=== PATIENT | male | born 1945 | race Two or more races ===

== ENCOUNTER → 2016-10-27 | Day surgery (SDC) | payer MEDICARE, OTHER ==
--- NOTE | 2016-10-26 11:47 | Pre-op HX & Phy Repo 2 SIG ---
DATE OF ADMISSION: 10/27/2016 HISTORY OF PRESENT ILLNESS: The patient is a very pleasant 71-year-old male with history of renal failure, dialysis dependent, history of hypertension, hyperlipidemia, and diabetes, who presents to my office for preoperative evaluation for cataract surgery. He denies any chest pain or shortness of breath. No headaches. No abdominal pain. No fevers or chills. PAST MEDICAL HISTORY: Includes a history of renal failure on dialysis, history of diabetes, history of hypertension, history hyperlipidemia, history of neuropathy, vitamin D deficiency and history of peripheral vascular disease. MEDICATIONS: Please see his reconciled medication list. ALLERGIES: None known. SOCIAL HISTORY: The patient does not smoke, does not drink any alcohol, or does not use any drugs. REVIEW OF SYSTEMS: Twelve point review of systems reviewed negative except for above. PHYSICAL EXAMINATION: GENERAL: He is well developed, well nourished, currently in no apparent distress. VITAL SIGNS: Revealed blood pressure 120/80, pulse 80, afebrile, and respirations is 18. HEENT: Head is normocephalic and atraumatic. Pupils are equal and reactive to light. Extraocular muscles are intact. He does have cataracts LUNGS: Lungs are clear. HEART: Regular rate and rhythm without murmurs, rubs, gallops. ABDOMEN: Soft. Positive bowel sounds. EXTREMITIES: No clubbing, cyanosis, or edema. He does have a fistula for dialysis. There is good thrill. ASSESSMENT AND PLAN: The patient is a pleasant 71-year-old male, who presents to my office for preoperative evaluation for cataract surgery. Preoperative laboratories including CBC, CMP, EKG has been ordered. The patient was told not to take any aspirin products for five days prior to this procedure. Pending his results. The patient is here for his proposed surgery. Thank you for allowing me to participate in the care of this patient. Casey Bryan M.D. DR: Manjit JOB#: [id number] CC: Noe Emerson M.D.; Fax#: [phone]
--- NOTE | 2016-10-26 23:02 | Pre-Procedure Note/Attestation ---
Pre-Procedure Note/Attestation Complete Prior to Procedure Planned Procedure: left - Removal of cataract and placement of intraocular lens , left eye Procedure Narrative: Removal of cataract and placement of intraocular lens, left eye Indications for Procedure Pre-Operative Diagnosis: Cataract, nuclear, left eye Attestation I attest that I discussed the nature of the procedure; its benefits; risks and complications; and alternatives (and the risks and benefits of such alternatives ), prior to the procedure, with the patient (or the patient's legal maintenance representative). I attest that, if there was a reasonable possibility of needing a blood transfusion, the patient (or the patient's legal maintenance representative) was given the [place] [facility] standardized written summary, pursuant to the [place] Blood Safety Act ([place] Health and Safety Code # 1645, as amended). I attest that I re-evaluated the patient just prior to the surgery and that there has been no change in the patient's H&P, except as documented below: Noe Emerson MD Oct 26, 2016 23:02
[~2016-10-27] VITALS: Ht 170.2 cm; Wt 95.3 kg
[2016-10-27] VITALS (9 sets, daily range): BP systolic 116–149; BP diastolic 49–75
[~2016-10-27] MED LIST: ASPIR-LOW81 MG ORAL; Akten 3.5% 1ml Btl ONE; BSS 15ml BTL ONE; BSS 500ml btl ONE; CALCIUM ACETAT667 MG PO; CLOPIDOGREL75 MG ORAL; Cyclopentolate 1% Opth Sol ONE; Dexamethasone 4mg/ml vial ONE; EPINEPHrine 1mg/1ml Amp ONE; Flurbiprofen 0.03% Opth Sol 2.5ml ONE; GLUCOTROL5 MG PO; Gatifloxacin Opth Solution 0.5% ONE; HYTRIN2 MG PO; Hydromorphone 0.5mg/0.5ml inj IVP PRN; Ketorolac 30mg Inj IV PRN; LOPRESSOR100 MG PO; Lidocaine 4% Amp ONE; Maxitrol Opth Oint 3.5gm ONE; NEPHROVITE1 TAB PO; NS Irrig 1000ml ONE; Norco 5mg/325mg tab ORAL PRN; PROTONIX40 MG PO; PT WILL BRING LIST; Phenylephrine 10% Opth Soln 5ml ONE; Povidone-Iodine 5% opth solution ONE; Pred Forte 1% Opth Susp 1ml LEFT EYE ONE; Pred Forte 1% Opth Susp 1ml ONE; RAPAFLO8 MG ORAL; SENSIPAR30 MG ORAL; SIMVASTATIN40 MG PO; Sodium Hyaluronate 10 mg/ml 0.85ml ONE; Sterile Water Irrig 1000ml IRRIG ONE; TRADJENTA5 MG PO; Tetracaine 0.5% Opth Soln ONE; ZETIA10 MG PO; fentaNYL 100 mcg/2 mL IV ONE; fentaNYL 100 mcg/2 mL IV PRN
[2016-10-27] MEDS: Phenylephrine 10% Opth Soln 5ml LEFT EYE SCH ×3 (11:11→11:44)
[2016-10-27] MEDS: Flurbiprofen 0.03% Opth Sol 2.5ml LEFT EYE SCH ×3 (11:11→11:44)
[2016-10-27] MEDS: Cyclopentolate 1% Opth Sol LEFT EYE SCH ×3 (11:11→11:43)
[2016-10-27] MEDS: Akten 3.5% 1ml Btl LEFT EYE SCH ×3 (11:11→11:43)
[2016-10-27] MEDS: Gatifloxacin Opth Solution 0.5% LEFT EYE SCH ×3 (11:12→11:44)
[2016-10-27] MEDS: Tetracaine 0.5% Opth Soln LEFT EYE SCH ×3 (11:19→11:44)
--- NOTE | 2016-10-27 13:54 | Anethesia Preoperative Eval ---
Anesthesia Pre-op PMH/ROS General Date of Evaluation: Oct 27, 2016 Time of Evaluation: 13:18 Anesthesiologist: eGraldo ASA Score: ASA 3 Mallampati Score Class I : Soft palate, uvula, fauces, pillars visible Class II: Soft palate, uvula, fauces visible Class III: Soft palate, base of uvula visible Class IV: Only hard plate visible Mallampati Classification: Class II Surgeon: Ki Diagnosis: Cataract Surgical Procedure: Cataract Surgery Anesthesia History: none Family History: no anesthesia problems Allergies: Coded Allergies: No Known Allergies (Verified Allergy, Unknown, 03/09/11) Medications: see eMAR Past Medical History Cardiovascular: Reports: CAD, HTN, other - Lipids Pulmonary: Reports: COPD Gastrointestinal/Genitourinary: Reports: ESRD Neurologic/Psychiatric: Denies: CVA, TIA, dementia, depression/anxiety, other Endocrine: Reports: DM HEENT: Reports: cataract (L) Hematology/Immune: Denies: DVT, anemia, bleeding disorder, other Musculoskeletal/Integumentary: Reports: DJD Other: obesity Anesthesia Pre-op Phys. Exam Physician Exam Last Vital Signs Date Time Temp Pulse Resp B/P Pulse Ox O2 Delivery O2 Flow Rate FiO2 10/27/16 11:46 97.3 56 20 134/61 100 Room Air Constitutional: NAD Neurologic: CN 2-12 intact Cardiovascular: RRR Airway Exam Mallampati Score: Class II Anesthesia Pre-op A/P Labs Chemistry Test 10/27/16 11:50 Potassium Level 4.8 mEQ/L (3.4-4.9) APOLINAR WATSON M.D. Oct 27, 2016 13:54
--- NOTE | 2016-10-27 14:16 | Immediate Post-Op Evaluation ---
Immediate Post-Op Evalulation Immediate Post-Op Evalulation Procedure: CAtaract Surgery Date of Evaluation: Oct 27, 2016 Time of Evaluation: 14:30 IV Fluids: 200 Blood Products: 0 Estimated Blood Loss: 0 Urinary Output: 0 Blood Pressure Systolic: 130 Blood Pressure Diastolic: 80 Pulse Rate: 65 Respiratory Rate: 20 O2 Sat by Pulse Oximetry: 98 Temperature (Fahrenheit): 98 Pain Score (1-10): 1 Nausea: No Vomiting: No Complications na Patient Status: awake Hydration Status: adequate Given Within 1 Hr of Incision: APOLINAR Cárdenas M.D. Oct 27, 2016 14:16
--- NOTE | 2016-10-27 14:17 | 48 Hour Post Anesthesia Eval ---
Post Anesthesia Evaluation Procedure: CAtaract Surgery Date of Evaluation: Oct 27, 2016 Time of Evaluation: 15:30 Blood Pressure Systolic: 140 0: 80 Pulse Rate: 65 Respiratory Rate: 20 Temperature (Fahrenheit): 98 O2 Sat by Pulse Oximetry: 98 Airway: patent Nausea: No Vomiting: No Pain Intensity: 1 Hydration Status: adequate Cardiopulmonary Status: stable Mental Status/LOC: patient returned to baseline Follow-up Care/Observations: na Post-Anesthesia Complications: na Follow-up care needed: N/A APOLINAR WATSON M.D. Oct 27, 2016 14:17
--- NOTE | 2016-10-27 14:36 | Discharge Instructions ---
Discharge Instructions Discharge Instructions Follow Up Orders Leave shield on at all times except to place eye drops Continue to use preop eye drops Followup in Dr Emerson's office tomorrow For Congestive Heart Failure Reminder Report to your physician any weight gain of 5 pounds or more in one week. Noe Emerson MD Oct 27, 2016 14:36
--- NOTE | 2016-10-27 14:39 | Brief Operative Note ---
Immediate Post Operative Note Operative Note Pre-op Diagnosis: Cataract, nuclear, left eye Miotic pupil Procedure: Phaco pc iol, left eye Use of Vision blue for capsular staining Use of Malyugan ring (7.0) Post-op Diagnosis: same as pre-op Surgeon: Serenity Emerson MD MS Creative Project Manager: none Anesthesiologist: Dr Alston Anesthesia: local, MAC Specimen: none Complications: none Condition: stable Estimated Blood Loss: minimal Drains: none Implant(s) used?: Yes - king zcb00 23.5 Noe Emerson MD Oct 27, 2016 14:39
--- NOTE | 2016-11-01 22:47 | Operative Note - Dictated ---
DATE OF OPERATION: 10/27/2016 SURGEON: Noe Emerson M.D. RADIO DISC JOCKEY SURGEON: None. ANESTHESIOLOGIST: Apollo Chow M.D. ANESTHESIA: Local/standby/monitored anesthesia care. PREOPERATIVE DIAGNOSES: 1. Cataract, nuclear, left eye. 2. Miosis, left eye. PROCEDURE: 1. Phacoemulsification of cataract, left eye. 2. Placement of posterior chamber intraocular lens, left eye (model [id number], 23.5, [place]). 3. Use of Malyugin ring, left eye (7.0 mm). 4. Use of VisionBlue for capsular staining. SPECIMENS: None. COMPLICATIONS: None. INDICATIONS FOR SURGERY: The patient has had painless progressive decrease in visual acuity in the left eye secondary to cataract. The patient understands the risks of surgery including infection, bleeding, need for further surgery, loss of vision, no improvement in vision, loss of the eye, loss of life, glaucoma, and retinal detachment, understands these risks and elects to proceed with surgery. FINDINGS: The patient had a +4 nuclear sclerotic cataract. Operative Note: After informed consent was obtained, the patient was brought into the operating room and placed in the supine position. Cardiac and respiratory monitors were attached. A time-out was performed and all criteria were met and everyone in the room agreed. The left eye was then draped and prepped in a sterile manner for ocular surgery. A lid speculum was placed in the eye. A 1% lidocaine preservative-free was injected at the approximate 2 o'clock limbus. A conjunctiva peritomy from approximately 1:30 to 3 o'clock was made and dissected posteriorly. Hemostasis was maintained with bipolar cautery. A 2.6 mm limbal incision was made centered at approximately 2 o'clock and dissected anteriorly. A paracentesis was made at approximately 5:30 and Shugarcaine was injected into the anterior chamber. An air bubble was placed into the anterior chamber. VisionBlue was then placed into the anterior chamber for capsular staining. This was then irrigated from the anterior chamber. Healon was then injected into the anterior chamber. A 2.6 mm keratome was then used to enter the anterior chamber through the limbal wound. A Malyugin ring was then placed. The pupil was approximately 4 mm or so or less. Once the ring was hooked in place in four points, an anterior capsulorrhexis was then performed. Hydrodissection and hydrodelineation of the lens was then performed. The lens was then phacoemulsified using divide and conquer four-quadrant technique. Residual cortical material was then aspirated. Healon was injected into the anterior chamber and capsular bag. The lens was taken from its package, placed into the cartridge and the tip of the cartridge was placed through the limbal incision. The lens was injected into the anterior chamber and capsular bag. The Malyugin ring was then removed. Healon was aspirated from the anterior chamber and capsular bag. One 10-0 nylon interrupted suture was then placed through the limbal incision and the knot was rotated and buried. The conjunctiva was then closed with forceps cautery. The lid speculum and drapes were removed from the eye and a drop of Betadine was placed onto the ocular surface and then irrigated. The paracentesis was previously hydrated and closed. The lid speculum and drapes were removed from the eye and drops of Pred Forte, ciprofloxacin, and gatifloxacin were applied to the eye followed by Maxitrol ointment and a shield. The patient left the operating room, awake, alert and in stable condition. Noe Emerson M.D. DR: FE JOB#: [id number] CC:
== END | disposition home or self-care (01) ==
LOC: SUR 10:17
DX: H25.12 Age-related nuclear cataract, left eye (principal); H57.03 Miosis; I12.0 Hypertensive chronic kidney disease with stage 5 chronic kidney disease or end stage renal disease; E11.22 Type 2 diabetes mellitus with diabetic chronic kidney disease; N18.6 End stage renal disease; Z99.2 Dependence on renal dialysis; E11.40 Type 2 diabetes mellitus with diabetic neuropathy, unspecified; E78.5 Hyperlipidemia, unspecified; I25.10 Atherosclerotic heart disease of native coronary artery without angina pectoris; J44.9 Chronic obstructive pulmonary disease, unspecified; E66.9 Obesity, unspecified; I73.9 Peripheral vascular disease, unspecified; E55.9 Vitamin D deficiency, unspecified
CPT/HCPCS: 36415; 66982; 82962; 84132; J0171; J1100; J2250; J3010; V2632; 94003; 94150

== ENCOUNTER 2018-12-18 13:20 | Outpatient (CLI) | payer MEDICARE, OTHER ==
[~2018-12-18 13:20] MED LIST changes: -Akten 3.5% 1ml Btl ONE; -BSS 15ml BTL ONE; -BSS 500ml btl ONE; -Cyclopentolate 1% Opth Sol ONE; -Dexamethasone 4mg/ml vial ONE; -EPINEPHrine 1mg/1ml Amp ONE; -Flurbiprofen 0.03% Opth Sol 2.5ml ONE; -Gatifloxacin Opth Solution 0.5% ONE; -Hydromorphone 0.5mg/0.5ml inj IVP PRN; -Ketorolac 30mg Inj IV PRN; -Lidocaine 4% Amp ONE; -Maxitrol Opth Oint 3.5gm ONE; -NS Irrig 1000ml ONE; -Norco 5mg/325mg tab ORAL PRN; -Phenylephrine 10% Opth Soln 5ml ONE; -Povidone-Iodine 5% opth solution ONE; -Pred Forte 1% Opth Susp 1ml LEFT EYE ONE; -Pred Forte 1% Opth Susp 1ml ONE; -Sodium Hyaluronate 10 mg/ml 0.85ml ONE; -Sterile Water Irrig 1000ml IRRIG ONE; -Tetracaine 0.5% Opth Soln ONE; -fentaNYL 100 mcg/2 mL IV ONE; -fentaNYL 100 mcg/2 mL IV PRN
[2018-12-18 15:32] VITALS: BP 106/57
--- NOTE | 2018-12-18 21:45 | Consultation ---
DATE OF CONSULTATION: 12/18/2018 GASTROENTEROLOGY CONSULTATION CONSULTING PHYSICIAN: Andrea Faith M.D. REFERRING PHYSICIAN: Casey Bryan M.D. CHIEF COMPLAINT: Abdominal pain. HISTORY OF PRESENT ILLNESS: The patient is a very pleasant 73-year-old male, patient of Dr. Casey Bryan. The patient had some abdominal pain, was seen by Dr. Bryan last week, was given Dexilant which according to him is helping with his abdominal pain symptoms, but the patient was referred for endoscopy and colonoscopy because he was fine for him to have one. PAST MEDICAL HISTORY: 1. Diabetes. 2. Hypertension. 3. End-stage renal disease, on hemodialysis. 4. Anemia. 5. Arthritis. PAST SURGICAL HISTORY: Cataract surgery, history of surgical shunt placement for dialysis. MEDICATIONS: He notes he is on aspirin, Plavix, and Dexilant. FAMILY HISTORY: Noncontributory. SOCIAL HISTORY: The patient drinks alcohol socially. Denies any IV drug abuse. FAMILY HISTORY: Noncontributory. ALLERGIES: No known allergies. REVIEW OF SYSTEMS: A 10-point review of systems was performed and pertinent positives in HPI. PHYSICAL EXAMINATION: GENERAL: This is a well-developed male in no acute distress. VITAL SIGNS: Temperature is 97.6, pulse is 76, respirations 20, and blood pressure is 160/56. HEENT: Normocephalic and atraumatic. No scleral icterus. NECK: Supple. No obvious evidence of lymphadenopathy. CARDIOVASCULAR: Regular rhythm. Plus S1 and S2. No obvious murmur. LUNGS: Clear to auscultation bilaterally. ABDOMEN: Positive bowel sounds. Soft, nontender. No rebound. No guarding. No peritoneal sign. EXTREMITIES: No cyanosis. No clubbing. No edema. NEUROLOGIC: Nonfocal. ASSESSMENT AND PLAN: This is a 73-year-old male with abdominal pain, which responded to PPI, but given his age of 73, we are planning to get an endoscopy and colonoscopy for him. He is scheduled for January 26. He does not want to have it done earlier. He was given the prep instruction for [employer] and the diet instruction, and the patient was told that he needed a ride for that day and he was scheduled for endoscopy and colonoscopy on January 26. I want to thank, Dr. Casey Bryan, for this kind referral. Andrea Faith M.D. DR: Josep JOB#: [id number] CC: Casey Bryan M.D.; Fax#: [phone]
== END 2018-12-18 15:57 | disposition home or self-care (01) ==
LOC: PAN 13:20
DX: R10.9 Unspecified abdominal pain (principal); I12.0 Hypertensive chronic kidney disease with stage 5 chronic kidney disease or end stage renal disease; E11.22 Type 2 diabetes mellitus with diabetic chronic kidney disease; N18.6 End stage renal disease; Z99.2 Dependence on renal dialysis; M19.90 Unspecified osteoarthritis, unspecified site; Z79.82 Long term (current) use of aspirin; Z79.01 Long term (current) use of anticoagulants

== ENCOUNTER 2019-01-26 06:42 | Day surgery (SDC) | payer MEDICARE, OTHER ==
[2019-01-26] VITALS (10 sets, daily range): BP systolic 126–163; BP diastolic 42–57
[~2019-01-26] VITALS: Ht 170.2 cm; Wt 90.7 kg
[2019-01-26] MEDS ORDERED: fentaNYL 100 mcg/2 mL IV ONE (06:43)
[2019-01-26] MEDS ORDERED: Midazolam 2mg/2ml Inj ONE (06:43)
[2019-01-26] MEDS ORDERED: AMLODIPINE BESY10 MG ORAL (07:44)
[2019-01-26] MEDS ORDERED: Propofol 200mg/20ml IV ONE (08:27)
--- NOTE | 2019-01-26 08:29 | Pre-Procedure Note/Attestation ---
Pre-Procedure Note/Attestation Complete Prior to Procedure Planned Procedure: not applicable Procedure Narrative: esophagogastroduodenoscopy and colonoscopy Indications for Procedure Pre-Operative Diagnosis: GERD, abd pain, screening Attestation I attest that I discussed the nature of the procedure; its benefits; risks and complications; and alternatives (and the risks and benefits of such alternatives ), prior to the procedure, with the patient (or the patient's legal collections representative). I attest that, if there was a reasonable possibility of needing a blood transfusion, the patient (or the patient's legal collections representative) was given the [facility] standardized written summary, pursuant to the [place] Blood Safety Act ([place] Health and Safety Code # 1645, as amended). I attest that I re-evaluated the patient just prior to the surgery and that there has been no change in the patient's H&P, except as documented below: Andrea Faith MD Jan 26, 2019 08:29
--- NOTE | 2019-01-26 08:29 | Short Stay Surgery H&P ---
History of Present Illness History of Present Illness Chief Complaint see recent consult note HPI Jake Carmona is a 73 year old male who was admitted on for Abdominal Pain,And Gerd Patient History Allergies: Coded Allergies: No Known Allergies (Verified Allergy, Unknown, 03/09/11) Medication History Scheduled Amlodipine Besylate* (Amlodipine Besylate*), 10 MG ORAL DAILY, (Reported) Aspirin* (Aspir-Low*), 81 MG ORAL DAILY, (Reported) Calcium Acetate (Calcium Acetate), 667 MG PO DA, (Reported) Cinacalcet* (Sensipar*), 30 MG ORAL DAILY, (Reported) Clopidogrel* (Clopidogrel*), 75 MG ORAL DAILY, (Reported) Glipizide* (Glucotrol*), 7.5 MG PO DAILY, (Reported) Linagliptin (Tradjenta), 5 MG PO DA, (Reported) Metoprolol Tartrate* (Metoprolol Tartrate*), 100 MG PO Q12H, (Reported) Silodosin (Rapaflo), 8 MG ORAL DAILY, (Reported) Simvastatin (Zocor), 40 MG PO BID, (Reported) Miscellaneous Medications [Pt Will Bring List], (Reported) Physical Exam Vital Signs Last Vital Signs Date Time Temp Pulse Resp B/P (MAP) Pulse Ox O2 Delivery O2 Flow Rate FiO2 01/26/19 07:32 97.4 57 20 163/54 100 Room Air Labs Laboratory Tests Test 01/26/19 07:25 Potassium Level 4.1 MMOL/L (3.5-5.1) Plan Attestation Are the patient's medical conditions optimized for surgery? Andrea Faith MD Jan 26, 2019 08:29
--- NOTE | 2019-01-26 08:56 | Anethesia Preoperative Eval ---
Anesthesia Pre-op PMH/ROS General Date of Evaluation: Jan 26, 2019 Time of Evaluation: 08:20 Anesthesiologist: Pedro ASA Score: ASA 3 Mallampati Score Class I : Soft palate, uvula, fauces, pillars visible Class II: Soft palate, uvula, fauces visible Class III: Soft palate, base of uvula visible Class IV: Only hard plate visible Mallampati Classification: Class II Surgeon: Vianney Diagnosis: Abdominal pain Surgical Procedure: EGD Coolonoscopy Anesthesia History: none Family History: no anesthesia problems Allergies: Coded Allergies: No Known Allergies (Verified Allergy, Unknown, 03/09/11) Medications: see eMAR Patient NPO?: Yes Past Medical History Cardiovascular: Reports: HTN, CAD - stable; Denies: IL, valve dz, arrhythmia, other Pulmonary: Reports: DAI; Denies: asthma, COPD, other Gastrointestinal/Genitourinary: Reports: GERD, ESRD - on HD; Denies: CRI, other Neurologic/Psychiatric: Reports: depression/anxiety; Denies: dementia, CVA, TIA, other Endocrine: Reports: DM - stable on pills; Denies: hypothyroidism, steroids, other HEENT: Reports: cataract (L), cataract (R) - s/p Sx; Denies: glaucoma, [place] (L), [place] (R), other Hematology/Immune: Reports: anemia - mild; Denies: DVT, bleeding disorder, other Musculoskeletal/Integumentary: Denies: OA, RA, DJD, DDD, edema, other Other: obesity PMH Narrative: as above PSxH Narrative: Bilateral cataracts Anesthesia Pre-op Phys. Exam Physician Exam Last Vital Signs Date Time Temp Pulse Resp B/P (MAP) Pulse Ox O2 Delivery O2 Flow Rate FiO2 01/26/19 07:32 97.4 57 20 163/54 100 Room Air Constitutional: NAD Cardiovascular: no M/R/G Respiratory: CTA Gastrointestinal: S/NT/ND Airway Exam Mallampati Score: Class III MO: full Neck: short ROM: limited Teeth: missing Dentures: no upper, no lower Anesthesia Pre-op A/P Labs Chemistry Test 01/26/19 07:25 Potassium Level 4.1 MMOL/L (3.5-5.1) Studies Pre-op Studies: EKG - NSR Risk Assessment & Plan Assessment: ASA 3 Plan: MAC Status Change Before Surgery: No Pre-Antibiotics Drug: none Andrew Vasquez MD Jan 26, 2019 08:56
[2019-01-26] MEDS ORDERED: fentaNYL 100 mcg/2 mL IV PRN (09:00)
--- NOTE | 2019-01-26 09:10 | Endoscopy Procedure Note ---
Endoscopy Procedure Note General Indication for Procedure: screenig colon, GERD,abd pain Procedures Performed: EGD, colonoscopy Operative Findings/Diagnosis: gastritis, one polyp Specimen: yes Pt Tolerated Procedure Well: Yes Estimated Blood Loss: none Anesthesia Anesthesiologist: cb Anesthesia: MAC Inserted Devices Implant(s) used?: No Quality Quality of Bowel Preparation: Fair Did scope reach the cecum?: Yes Was there any complications?: No GI Core Measures 50 yrs or older w/o bx or poly: No 10yrs. F/U not recommended: Yes If not recommended, why?: Above average risk 10 yrs. F/U needed: Yes 18 years or older w/prev. colo: Yes <3yrs. since last colonoscopy: No Andrea Faith MD Jan 26, 2019 09:10
--- NOTE | 2019-01-26 09:15 | Immediate Post-Op Evaluation ---
Immediate Post-Op Evalulation Immediate Post-Op Evalulation Procedure: EGD Colonoscopy Date of Evaluation: Jan 26, 2019 Time of Evaluation: 09:14 IV Fluids: 200 Blood Products: none Estimated Blood Loss: none Urinary Output: none Blood Pressure Systolic: 136 Blood Pressure Diastolic: 68 Pulse Rate: 58 Respiratory Rate: 20 O2 Sat by Pulse Oximetry: 99 Temperature (Fahrenheit): 97.6 Pain Score (1-10): 1 Nausea: No Vomiting: No Complications none Patient Status: reacts, patent, none Hydration Status: adequate Andrew Vasquez MD Jan 26, 2019 09:15
--- NOTE | 2019-01-26 10:05 | 48 Hour Post Anesthesia Eval ---
Post Anesthesia Evaluation Procedure: EGD Colonoscopy Date of Evaluation: Jan 26, 2019 Time of Evaluation: 10:04 Blood Pressure Systolic: 144 0: 75 Pulse Rate: 66 Respiratory Rate: 22 Temperature (Fahrenheit): 97.3 O2 Sat by Pulse Oximetry: 98 Airway: patent Nausea: No Vomiting: No Pain Intensity: 1 Cardiopulmonary Status: stable Mental Status/LOC: patient returned to baseline Follow-up Care/Observations: n/a Post-Anesthesia Complications: none Follow-up care needed: ready to discharge Andrew Vasquez MD Jan 26, 2019 10:05
--- NOTE | 2019-01-26 20:15 | Procedure Note ---
DATE OF PROCEDURE: 01/26/2019 SURGEON: Andrea Faith M.D. REFERRING PHYSICIAN: Casey Bryan M.D. PROCEDURE: Upper endoscopy with biopsy and colonoscopy with snare polypectomy. ANESTHESIA: Per Dr. Vasquez. INSTRUMENT: Olympus adult flexible upper endoscope and colonoscope. INDICATION: Abdominal pain, screening colonoscopy, and chronic GERD. PROCEDURE IN DETAIL: After informed consent was obtained and the patient was adequately sedated, the Olympus upper endoscope was advanced from the mouth into the second portion of duodenum and retroflexion was performed in the stomach. The patient had evidence of diffuse gastritis. Random biopsy from antrum and body was obtained to rule out H. pylori infection. Otherwise, the rest of the upper endoscopic examination grossly looked within normal limit. At this time, the upper endoscope was retrieved. The patient was turned over for colonoscopy. First, rectal exam was performed, which showed positive for internal hemorrhoids. Then, the scope was advanced from the rectum into the cecum. Quality of prep was fair. The cecum was not examined fully given this kind of prep. Also throughout the colon especially in the left colon, there was a lot of fluid in the lumen. The scope got clogged off a few times, so it discouraged us from continuing to suctioning and clogging of the scope. I would say about 20% to 25% of the colonic mucosa was not examined given this prep. The patient had scattered diverticulosis both in the right and left colon. The patient had evidence of 1 polyp in the sigmoid colon, sessile, measured roughly 6 to 7 mm, removed with hot snare polypectomy technique. Retroflexion of rectum showed evidence of medium-sized internal hemorrhoids. SUMMARY OF FINDINGS: 1. Gastritis, status post biopsy. 2. Fair colonic prep with 25% of the colonic mucosa was not examined. 3. Scattered diverticulosis. 4. One colonic polyp removed, see above for details. 5. Internal hemorrhoids. RECOMMENDATIONS: 1. Follow up biopsy results and treat accordingly. 2. We will recommend repeat colonoscopy in three years given this prep and one polyp at this time. I want to thank, Dr. Casey Bryan, for this kind referral. Andrea Alba Faith DR: GREGG JOB#: [id number] CC: Casey Bryan M.D.; Fax#: [phone]
--- NOTE | 2019-01-26 21:00 | Procedure Note ---
DATE OF PROCEDURE: 01/26/2019 SURGEON: Andrea Faith M.D. REFERRING PHYSICIAN: Casey Bryan M.D. PROCEDURE: Upper endoscopy with biopsy and colonoscopy with snare polypectomy. ANESTHESIA: Per Dr. Vasquez. INSTRUMENT: Olympus adult flexible upper endoscope and colonoscope. INDICATION: Abdominal pain, screening colonoscopy, and chronic GERD. The procedure, risks, benefits, and possible consequences, including hemorrhage, aspiration, perforation and infection, and alternative treatments, were explained to the patient/legal guardian by Dr. Andrea Faith and the patient/legal guardian understood and accepted these risks. PROCEDURE IN DETAIL: After informed consent was obtained and the patient was adequately sedated, the Olympus upper endoscope was advanced from the mouth into the second portion of duodenum and retroflexion was performed in the stomach. The patient had evidence of diffuse gastritis. Random biopsy from antrum and body was obtained to rule out H. pylori infection. Otherwise, the rest of the upper endoscopic examination grossly looked within normal limit. At this time, the upper endoscope was retrieved. The patient was turned over for colonoscopy. First, rectal exam was performed, which showed positive for internal hemorrhoids. Then, the scope was advanced from the rectum into the cecum. Quality of prep was fair. The cecum was not examined fully given this kind of prep. Also throughout the colon especially in the left colon, there was a lot of fluid in the lumen. The scope got clogged off a few times, so it discouraged us from continuing to suctioning and clogging of the scope. I would say about 20% to 25% of the colonic mucosa was not examined given this prep. The patient had scattered diverticulosis both in the right and left colon. The patient had evidence of 1 polyp in the sigmoid colon, sessile, measured roughly 6 to 7 mm, removed with hot snare polypectomy technique. Retroflexion of rectum showed evidence of medium-sized internal hemorrhoids. SUMMARY OF FINDINGS: 1. Gastritis, status post biopsy. 2. Fair colonic prep with 25% of the colonic mucosa was not examined. 3. Scattered diverticulosis. 4. One colonic polyp removed, see above for details. 5. Internal hemorrhoids. RECOMMENDATIONS: 1. Follow up biopsy results and treat accordingly. 2. We will recommend repeat colonoscopy in three years given this prep and one polyp at this time. I want to thank, Dr. Casey Bryan, for this kind referral. Andreanik Faith M.D. DR: GREGG JOB#: [id number] CC: Casey Bryan M.D.; Fax#: [phone]
--- NOTE | 2019-01-26 21:51 | Cardiology Report ---
APPROVED REPORT EKG Measurement Heart [id number] ME [id number] Sinus bradycardia RBBB Abnormal ECG
== END 2019-01-26 11:10 | disposition home or self-care (01) ==
LOC: GAS 06:42
DX: Z12.11 Encounter for screening for malignant neoplasm of colon (principal); K21.9 Gastro-esophageal reflux disease without esophagitis; K29.50 Unspecified chronic gastritis without bleeding; R10.9 Unspecified abdominal pain; K57.90 Diverticulosis of intestine, part unspecified, without perforation or abscess without bleeding; K63.5 Polyp of colon; I45.10 Unspecified right bundle-branch block; K64.8 Other hemorrhoids; R94.31 Abnormal electrocardiogram [ECG] [EKG]; R00.1 Bradycardia, unspecified; D12.5 Benign neoplasm of sigmoid colon; Z79.82 Long term (current) use of aspirin; Z79.899 Other long term (current) drug therapy; I11.9 Hypertensive heart disease without heart failure; I25.10 Atherosclerotic heart disease of native coronary artery without angina pectoris; E11.9 Type 2 diabetes mellitus without complications; F32.9 Major depressive disorder, single episode, unspecified; F41.9 Anxiety disorder, unspecified; D64.9 Anemia, unspecified
CPT/HCPCS: 36415; 43239; 45385; 82962; 84132; 93005; J2250; J2704; J3010; 94003; 94150

== ENCOUNTER 2019-04-14 17:50 | Inpatient (IN) | payer MEDICARE, OTHER ==
[~2019-04-14] VITALS: Ht 180.3 cm; Wt 86.2 kg
[~2019-04-14 17:50] MED LIST changes: +AMLODIPINE BESY10 MG ORAL
[2019-04-14 18:08] VITALS: BP 136/79
--- NOTE | 2019-04-14 18:19 | NUR ---
ED Nurse Note: Patient presents to ER due to blister on the left hand; reports no burn or injury. Patient states it started as 'tiny blister' and increased in size within days. Reports no fever or chills. No facial grimacing or guarding noted. Reports no pain.
--- NOTE | 2019-04-14 19:05 | NUR ---
ED Nurse Note: PT STATES HE HAS DIALYSIS TUESDAY AND TUESDAY. PT WAS DIALYSED TODAY
[2019-04-14 19:06] LABS: BASOPHILS % (AUTO) 0.3 % (0.0-2.0); EOSINOPHILS % (AUTO) 3.2 % (0.0-3.0); HEMATOCRIT 39.2 % (42.0-52.0); HEMOGLOBIN 12.7 G/DL (14.2-18.0); LYMPHOCYTES % (AUTO) 18.6 % (20.0-45.0); MEAN CORPUSCULAR VOLUME 93 FL (80-99); MONOCYTES % (AUTO) 6.1 % (1.0-10.0); NEUTROPHILS % (AUTO) 71.7 % (45.0-75.0); PLATELET COUNT 176 K/UL (150-450); RED CELL DISTRIBUTION WIDTH 16.1 % (11.6-14.8); WHITE BLOOD COUNT 9.1 K/UL (4.8-10.8)
--- NOTE | 2019-04-14 19:06 | NUR ---
ED Nurse Note: RIGHT LOWER PECTORAL BRUISE NOTED. PT HAS A UPPER LEFT ARM AV FISTULA.
--- NOTE | 2019-04-14 19:06 | NUR ---
HAND-OFF: Report given to DANIELLA Leung. waiting for x-ray.
[2019-04-14 19:17] LABS: ANION GAP 8 mmol/L (5-15); BLOOD UREA NITROGEN 45 mg/dL (7-18); CALCIUM 9.7 MG/DL (8.5-10.1); CARBON DIOXIDE 33 MMOL/L (21-32); CHLORIDE 101 MMOL/L (98-107); CREATININE 6.7 MG/DL (0.55-1.30); POTASSIUM 5.8 MMOL/L (3.5-5.1); SODIUM 142 MMOL/L (136-145)
[2019-04-14 19:22] LABS: ALANINE AMINOTRANSFERASE 12 U/L (12-78); ALBUMIN/GLOBULIN RATIO 1.1 (1.0-2.7); ALKALINE PHOSPHATASE 79 U/L (46-116); ASPARTATE AMINO TRANSFERASE 16 U/L (15-37); BILIRUBIN,TOTAL 0.4 MG/DL (0.2-1.0)
[2019-04-14] MEDS ORDERED: Calcium Gluconate 1gm/10ml vial IVP ONE (19:45)
[2019-04-14] MEDS ORDERED: Insulin Human Regular 100units/ml 3ml IV ONE (19:45)
--- NOTE | 2019-04-14 20:08 | Emergency Room Report ---
History of Present Illness General Chief Complaint: Skin Rash/Abscess Source: Patient (Allie Grande) Present Illness HPI 73-year-old male with history of kidney disease currently on dialysis here complaining of a non-painful fluid-filled mass on left hand on the dorsum side. Patient reports that started changing color into black and getting bigger for the past 2 days after it first appeared. Denies any fall or injury. Patient reports that he gets his dialysis 2 times a week on Tuesdays and Saturdays did get his dialysis today and was told to come to the ER due to the lesion in his hand. Patient has complete range of motion's with no sensory or motor deficit. Patient has a AV fistula with good thrill. Has no apparent distress and is stable. Denies chest pain, shortness of breath, palpitation, abdominal pain, hematuria, nausea vomiting. Patient is able to make urine. (Allie Grande) Allergies: Coded Allergies: No Known Allergies (Verified Allergy, Unknown, 03/09/11) Patient History Past Medical History: see triage record Past Surgical History: unable to obtain Pertinent Family History: none Immunizations: UTD Reviewed Nursing Documentation: PMH: Agreed; PSxH: Agreed (Allie Grande) Nursing Documentation-PMH Past Medical History: No History, Except For Hx Cardiac Problems: Yes Hx Hypertension: Yes Hx Diabetes: Yes Hx Cancer: No Hx Gastrointestinal Problems: Yes Hx Dialysis: Yes - T, TH, SAT Hx Neurological Problems: No (Allie Grande) Review of Systems All Other Systems: negative except mentioned in HPI (Allie Grande) Physical Exam Vital Signs Date Time Temp Pulse Resp B/P (MAP) Pulse Ox O2 Delivery O2 Flow Rate FiO2 04/14/19 18:08 98.1 18 136/79 99 Room Air 04/14/19 18:08 57 Sp02 EP Interpretation: reviewed, normal General Appearance: normal inspection, well appearing, no apparent distress, alert, GCS 15 Head: normocephalic, atraumatic Eyes: bilateral eye normal inspection, bilateral eye PERRL ENT: normal ENT inspection, hearing grossly normal, normal pharynx, no angioedema Neck: normal inspection, full range of motion, supple, no meningismus, no carotid bruits Respiratory: normal inspection, chest non-tender, lungs clear, normal breath sounds, no rhonchi, no retraction, no wheezing Cardiovascular #1: normal inspection, normal peripheral pulses, regular rate, rhythm, no edema, no gallop, no murmur, normal capillary refill Cardiovascular #2: 2+ radial (R), 2+ radial (L) Gastrointestinal: normal inspection, non tender, soft, no mass Rectal: deferred Genitourinary: no CVA tenderness Musculoskeletal: normal inspection, back normal Neurologic: normal inspection, alert, oriented x3, responsive Psychiatric: normal inspection, judgement/insight normal, memory normal Skin: no rash, normal color Lymphatic: normal inspection, no adenopathy (Allie Grande) Medical Decision Making PA Attestation Diagnosis and treatment plans were reviewed and discussed with my supervising physician Dr. Mora (Allie Grande) Medicare Attestation I saw and evaluated the patient and discussed the care with Allie HERNANDEZ on 04/14/2019. I agree with the findings and plan as documented in the note. 73-year-old male history of CKD, presents with a left blood blister on the dorsum of the hand, less likely infectious in etiology, ESR is elevated however CRP is negative, he had a blister on the dorsum of his hand for 2 days, nontender patient also recently had dialysis, but is slightly hyperkalemic, will admit patient for observation, hyperkalemia medications were given, since he will not be receiving dialysis in the next couple of days, he would benefit from observation and optimization of his electrolytes. (Holger Mora M.D.) Diagnostic Impression: Primary Impression: Hyperkalemia Additional Impression: Skin lesion of hand ER Course 73-year-old male with history of kidney disease currently on dialysis here complaining of a non-painful fluid-filled mass on left hand on the dorsum side. Patient reports that started changing color into black and getting bigger for the past 2 days after it first appeared. Denies any fall or injury. Patient reports that he gets his dialysis 2 times a week on Tuesdays and Saturdays did get his dialysis today and was told to come to the ER due to the lesion in his hand. Patient has complete range of motion's with no sensory or motor deficit. Patient has a AV fistula with good thrill. Has no apparent distress and is stable. Denies chest pain, shortness of breath, palpitation, abdominal pain, hematuria, nausea vomiting. Patient is able to make urine. Ddx considered but are not limited to: Kidney failure, hyperkalemia, acute kidney injury, infected ulcer left hand, benign hemangioma left hand, Vital signs: are WNL, pt. is afebrile H&PE are most consistent with: Hyperkalemia, left hand blister ORDERS: CBC, CMP, UA, PT PTT INR, type and screen, chest x-ray, ED INTERVENTIONS: Calcium gluconate, insulin, D50 , Lasix Patient was admited with diagnosis of Hyperkalemia and hand lesion to Dr. Carcamo under supervision of : Morgan pt stable at time of admission Creatinine 6.7, BUN elevated, calcium 5.8 (Allie Grande) EKG Diagnostic Results Rate: normal Rhythm: NSR ST Segments: no acute changes (Allie Grande) Chest X-Ray Diagnostic Results Chest X-Ray Diagnostic Results : Chest X-Ray Ordered: Yes # of Views/Limited/Complete: 1 View Indication: Chest Pain PA Xray: Interpretation reviewed, by supervising MD, and agrees with findings. Interpretation: no consolidation, no effusion, no pneumothorax Impression: No acute disease Electronically Signed by: allie albarado PA-C (Allie Grande) Last Vital Signs Date Time Temp Pulse Resp B/P (MAP) Pulse Ox O2 Delivery O2 Flow Rate FiO2 04/14/19 18:08 98.1 57 18 136/79 (98) 99 Room Air (Allie Grande) Disposition: ADMITTED INPATIENT Condition: Stable Allie Grande Apr 14, 2019 20:08 Hloger Mora M.D. Apr 15, 2019 11:14
[2019-04-14 20:10] VITALS: BP 160/76
[2019-04-14 20:33] LABS: CREATINE KINASE 75 U/L (26-308)
[2019-04-14] MEDS ORDERED: Miralax 17gm pkt ORAL PRN (21:15)
[2019-04-14 21:42] LABS: APPEARANCE,URINE CLEAR; BILIRUBIN, URINE NEGATIVE (NEGATIVE); COLOR,URINE PALE YELLOW; GLUCOSE, URINE (UA) 2+ (NEGATIVE); KETONES,URINE NEGATIVE (NEGATIVE); LEUKOCYTE ESTERASE ,URINE 1+ (NEGATIVE); NITRITE,URINE NEGATIVE (NEGATIVE); PH,URINE 8 (4.5-8.0); PROTEIN,URINE 4+ (NEGATIVE); UROBILINOGEN,URINE NORMAL MG/DL (0.0-1.0)
[2019-04-14 21:47] VITALS: BP 165/42
--- NOTE | 2019-04-14 21:50 | NUR ---
ED Nurse Note: REPORT GIVEN TO DANIELLA ADKINS Addendum: 04/14/19 at 2156 by TITION ED Nurse Note: TELEPHONE REPORT GIVEN DANIELLA ADKINS
--- NOTE | 2019-04-14 22:30 | NUR ---
ED Nurse Note: PT WAS SENT UP ON [facility] WITH DANIELLA PATRICK AND ANUSHA OLIVAS. PT IS AOX4, SR, ON ROOM AIR. VSS. PT SHOWS NO ACUTES SIGNS OF DISTRESS AT THE MOMENT. ALL BELONGINGS BROUGHT UP WITH PT.
--- NOTE | 2019-04-14 22:40 | NUR ---
NURSE NOTES: Received report from Víctor Lunsford RN. regarding patient's arrival to TELE floor from ED. Arrived via gurney and transferred to bed with minimal assist from staff. Belongings checked and noted with patient at bedside. Head to toe assessment initiated and observed left hand intact fluid filled blister. Pictures and measurements taken; ordered WC consult in the AM to further evaluate skin condition. placed on continuous cardiac monitoring per protocol and IV line intact and patent SL. New orders received and carried out per Mart Wheeler MD. Patient AAO X4 Syriac speaking with no complaints of acute pain or discomfort at this time. Safety precaution in place; siderails X2 up, call light within reach, bed in lowest position, brakes and alarm on at all times. Needs and wants anticipated and attended. Will continue plan of care and monitor for any changes noted.
[2019-04-15] VITALS: BP 98/58
--- NOTE | 2019-04-15 03:30 | NUR ---
NURSE NOTES: Patient in bed asleep with no S/S of distress. Will continue to monitor.
[2019-04-15 04:00] VITALS: BP 102/60
[2019-04-15] MEDS: NovoLOG Insulin Flexpen SUBQ SCH ×4 (05:41→20:40)
--- NOTE | 2019-04-15 07:21 | NUR ---
HAND-OFF: Report given to Mart Oliveros RN. Patient in bed in stable condition with no S/S of distress. Endorsed plan of care.
--- NOTE | 2019-04-15 07:45 | NUR ---
NURSE NOTES: Received report from DANIELLA Nelson. Patient in bed resting, no active s/s cardiac, respiratory distress noticed at this time. Patient AOx4, on room air, SB w/ BBB with HR 62. IV on right AC 18G, asymptomatic, patent, intact. Left AV shunt on upper arm, present bruit, thrill. Bed in lowest position, side rails upx2, call light within reach. Will continue to monitor.
[2019-04-15 08:00] VITALS: BP 155/50
[2019-04-15] MEDS: Aspirin EC 81mg tab ORAL SCH (08:22)
[2019-04-15] MEDS: Docusate 100mg cap ORAL SCH ×2 (08:22→20:41)
[2019-04-15] MEDS: Sensipar 30mg Tab ORAL SCH (08:23)
[2019-04-15] MEDS: Heparin 5000 units/ml inj SUBQ SCH ×2 (08:24→20:39)
[2019-04-15] MEDS ORDERED: GlipiZIDE 5mg tab ORAL SCH (09:00)
[2019-04-15 09:51] LABS: BASOPHILS % (AUTO) 0.8 % (0.0-2.0); EOSINOPHILS % (AUTO) 2.8 % (0.0-3.0); HEMATOCRIT 39.1 % (42.0-52.0); HEMOGLOBIN 12.6 G/DL (14.2-18.0); LYMPHOCYTES % (AUTO) 24.2 % (20.0-45.0); MEAN CORPUSCULAR VOLUME 95 FL (80-99); MONOCYTES % (AUTO) 6.9 % (1.0-10.0); NEUTROPHILS % (AUTO) 65.3 % (45.0-75.0); PLATELET COUNT 164 K/UL (150-450); RED CELL DISTRIBUTION WIDTH 16.5 % (11.6-14.8); WHITE BLOOD COUNT 8.2 K/UL (4.8-10.8)
[2019-04-15 10:40] LABS: ANION GAP 9 mmol/L (5-15); BLOOD UREA NITROGEN 55 mg/dL (7-18); CALCIUM 9.5 MG/DL (8.5-10.1); CARBON DIOXIDE 30 MMOL/L (21-32); CHLORIDE 99 MMOL/L (98-107); CREATININE 7.1 MG/DL (0.55-1.30); POTASSIUM 4.8 MMOL/L (3.5-5.1); SODIUM 138 MMOL/L (136-145)
--- NOTE | 2019-04-15 11:42 | NUR ---
NURSE NOTES: Per Dr. Horne, wound consult under DR. Wolf for left hand blister. Order noted, entered, carried out.
[2019-04-15 12:00] VITALS: BP 166/54
--- NOTE | 2019-04-15 12:08 | NUR ---
NURSE NOTES: Dr. Horne made aware patient BS at 1130 was 56, 200ml apple juice give, BS at 1200 was 63, eating lunch at this time. No order given at this time. Per Dr. Horne recheck BS after lunch. Will continue to monitor.
--- NOTE | 2019-04-15 12:30 | NUR ---
NURSE NOTES: Dr. Wolf at the nursing station, made aware of patient's blister opened spontaneously, moderated amount of blood came out. Per Dr. Wolf, change dressing daily with Xeroform with gauze, Order noted, acknowledged. Will continue to monitor.
--- NOTE | 2019-04-15 12:32 | Consultation ---
History of Present Illness General Date patient seen: Apr 15, 2019 Reason for Hospitalization: Skin Rash/Abscess Present Illness HPI 73-year-old male with history of kidney disease currently on dialysis here complaining of a non-painful fluid-filled mass on left hand on the dorsum side. Patient reports that started changing color into black and getting bigger for the past 2 days after it first appeared. Denies any fall or injury. Patient reports that he gets his dialysis 2 times a week on Tuesdays and Saturdays did get his dialysis today and was told to come to the ER due to the lesion in his hand. Patient has complete range of motion's with no sensory or motor deficit. Patient has a AV fistula with good thrill. Has no apparent distress and is stable. Denies chest pain, shortness of breath, palpitation, abdominal pain, hematuria, nausea vomiting. Allergies: Coded Allergies: No Known Allergies (Verified Allergy, Unknown, 03/09/11) Medication History Scheduled Amlodipine Besylate* (Amlodipine Besylate*), 10 MG ORAL DAILY, (Reported) Aspirin* (Aspir-Low*), 81 MG ORAL DAILY, (Reported) Calcium Acetate (Calcium Acetate), 667 MG PO DA, (Reported) Cinacalcet* (Sensipar*), 30 MG ORAL DAILY, (Reported) Clopidogrel* (Clopidogrel*), 75 MG ORAL DAILY, (Reported) Glipizide* (Glucotrol*), 7.5 MG PO DAILY, (Reported) Linagliptin (Tradjenta), 5 MG PO DA, (Reported) Metoprolol Tartrate* (Metoprolol Tartrate*), 100 MG PO Q12H, (Reported) Silodosin (Rapaflo), 8 MG ORAL DAILY, (Reported) Simvastatin (Zocor), 40 MG PO BID, (Reported) Patient History History Provided By: Patient, Medical Record, PMD Healthcare decision maker Resuscitation status Full Code Advanced Directive on File No Past Medical/Surgical History Past Medical/Surgical History: (1) Gastritis (2) Colon polyps (3) Skin lesion of hand (4) Hyperkalemia Review of Systems Review of Symptoms General ROS: no weight loss or fever Psychological ROS: no depression or mood changes, no memory loss Ophthalmic ROS: no visual changes or eye irritation ENT ROS: no nasal congestion, hearing loss, dizziness Allergy and Immunology ROS: no allergic symptoms or urticaria Hematological and Lymphatic ROS: no swollen glands, unusual bleeding or bruising Endocrine ROS: no polyuria, polydipsia, weight changes, temperature intolerance Respiratory ROS: no cough, shortness of breath, or wheezing Cardiovascular ROS: no chest pain or dyspnea on exertion Gastrointestinal ROS: denies abdominal pain, no bright red blood in stool. Musculoskeletal ROS: no myalgias or arthralgias Neurological ROS: no TIA or stroke symptoms Dermatological ROS: no new or changing skin lesions, rashes or pruritis Physical Exam Physical Exam General appearance: alert, cooperative, no distress, appears stated age Head: Normocephalic, without obvious abnormality, atraumatic Eyes: conjunctivae/corneas clear. PERRL, EOM's intact. Fundi benign Throat: Lips, mucosa, and tongue normal. Teeth and gums normal Neck: supple, symmetrical, trachea midline, no adenopathy, thyroid: not enlarged, symmetric, no tenderness/mass/nodules, no carotid bruit and no JVD Lungs: clear to auscultation bilaterally Heart: regular rate and rhythm, S1, S2 normal, no murmur, click, rub or gallop Abdomen: soft, non-tender. Bowel sounds normal. No masses, no organomegaly Extremities: extremities normal, atraumatic, no cyanosis or edema. left hand with large dorsal blood blister Pulses: 2+ and symmetric Skin: Skin color, texture, turgor normal. No rashes or lesions Neurologic: Grossly normal Last 24 Hour Vital Signs Date Time Temp Pulse Resp B/P (MAP) Pulse Ox O2 Delivery O2 Flow Rate FiO2 04/15/19 09:00 Room Air 04/15/19 09:00 60 155/50 04/15/19 08:23 62 155/50 04/15/19 08:00 58 04/15/19 08:00 98.4 62 18 155/50 (85) 100 04/15/19 04:00 54 04/15/19 04:00 97.3 62 18 102/60 (74) 99 04/15/19 00:00 59 04/15/19 00:00 97.9 60 18 98/58 (71) 99 04/14/19 23:04 98.5 62 17 161/49 100 Room Air 04/14/19 22:56 Room Air 04/14/19 21:47 98.6 56 18 165/42 100 Room Air 04/14/19 20:10 98.4 60 17 160/76 100 Room Air 04/14/19 18:08 98.1 57 18 136/79 (98) 99 Room Air 04/14/19 18:08 98.1 18 136/79 99 Room Air Intake and Output 04/14/19 04/15/19 18:59 06:59 Intake Total 0 ml Output Total 100 ml Balance -100 ml Intake Oral 0 ml Output Urine Total 100 ml Laboratory Tests Test 04/14/19 18:50 04/14/19 21:27 04/15/19 08:39 White Blood Count 9.1 K/UL (4.8-10.8) 8.2 K/UL (4.8-10.8) Red Blood Count 4.20 M/UL (4.70-6.10) L 4.10 M/UL (4.70-6.10) L Hemoglobin 12.7 G/DL (14.2-18.0) L 12.6 G/DL (14.2-18.0) L Hematocrit 39.2 % (42.0-52.0) L 39.1 % (42.0-52.0) L Mean Corpuscular Volume 93 FL (80-99) 95 FL (80-99) Mean Corpuscular Hemoglobin 30.2 PG (27.0-31.0) 30.7 PG (27.0-31.0) Mean Corpuscular Hemoglobin Concent 32.4 G/DL (32.0-36.0) 32.2 G/DL (32.0-36.0) Red Cell Distribution Width 16.1 % (11.6-14.8) H 16.5 % (11.6-14.8) H Platelet Count 176 K/UL (150-450) 164 K/UL (150-450) Mean Platelet Volume 6.1 FL (6.5-10.1) L 6.6 FL (6.5-10.1) Neutrophils (%) (Auto) 71.7 % (45.0-75.0) 65.3 % (45.0-75.0) Lymphocytes (%) (Auto) 18.6 % (20.0-45.0) L 24.2 % (20.0-45.0) Monocytes (%) (Auto) 6.1 % (1.0-10.0) 6.9 % (1.0-10.0) Eosinophils (%) (Auto) 3.2 % (0.0-3.0) H 2.8 % (0.0-3.0) Basophils (%) (Auto) 0.3 % (0.0-2.0) 0.8 % (0.0-2.0) Erythrocyte Sedimentation Rate 43 MM/HR (0-20) H Prothrombin Time 10.3 SEC (9.30-11.50) Prothromb Time International Ratio 1.0 (0.9-1.1) Activated Partial Thromboplast Time 26 SEC (23-33) Sodium Level 142 MMOL/L (136-145) 138 MMOL/L (136-145) Potassium Level 5.8 MMOL/L (3.5-5.1) H 4.8 MMOL/L (3.5-5.1) Chloride Level 101 MMOL/L (98-107) 99 MMOL/L (98-107) Carbon Dioxide Level 33 MMOL/L (21-32) H 30 MMOL/L (21-32) Anion Gap 8 mmol/L (5-15) 9 mmol/L (5-15) Blood Urea Nitrogen 45 mg/dL (7-18) H 55 mg/dL (7-18) H Creatinine 6.7 MG/DL (0.55-1.30) H 7.1 MG/DL (0.55-1.30) H Estimat Glomerular Filtration Rate mL/min (>60) mL/min (>60) Glucose Level 172 MG/DL (74-106) H 132 MG/DL (74-106) H Calcium Level 9.7 MG/DL (8.5-10.1) 9.5 MG/DL (8.5-10.1) Total Bilirubin 0.4 MG/DL (0.2-1.0) Aspartate Amino Transf (AST/SGOT) 16 U/L (15-37) Alanine Aminotransferase (ALT/SGPT) 12 U/L (12-78) Alkaline Phosphatase 79 U/L (46-116) Total Creatine Kinase 75 U/L (26-308) C-Reactive Protein, Quantitative < 0.4 mg/dL (0.00-0.90) Total Protein 7.5 G/DL (6.4-8.2) Albumin 4.0 G/DL (3.4-5.0) Globulin 3.5 g/dL Albumin/Globulin Ratio 1.1 (1.0-2.7) Urine Color Pale yellow Urine Appearance Clear Urine pH 8 (4.5-8.0) Urine Specific [place] 1.010 (1.005-1.035) Urine Protein 4+ (NEGATIVE) H Urine Glucose (UA) 2+ (NEGATIVE) H Urine Ketones Negative (NEGATIVE) Urine Blood 1+ (NEGATIVE) H Urine Nitrite Negative (NEGATIVE) Urine Bilirubin Negative (NEGATIVE) Urine Urobilinogen Normal MG/DL (0.0-1.0) Urine Leukocyte Esterase 1+ (NEGATIVE) H Urine RBC 0-2 /HPF (0 - 0) H Urine WBC 2-4 /HPF (0 - 0) Urine Squamous Epithelial Cells None /LPF (NONE/OCC) Urine Bacteria Few /HPF (NONE) Urine Osmolality 298 mOsm/kg (429-449) L Height (Feet): 5 Height (Inches): 11.00 Weight (Pounds): 190 Medications Current Medications Medications (Trade) Dose Ordered Sig/Diamond Route PRN Reason Start Time Stop Time Status Last Admin Dose Admin Acetaminophen (Tylenol) 650 mg Q4H PRN ORAL Mild Pain (Pain Scale 1-3) 04/14/19 21:15 05/14/19 21:14 Amlodipine Besylate (Norvasc) 10 mg DAILY ORAL 04/15/19 09:00 05/15/19 08:59 04/15/19 08:23 Aspirin (Ecotrin) 81 mg DAILY ORAL 04/15/19 09:00 05/15/19 08:59 04/15/19 08:22 Cinacalcet (Sensipar) 30 mg DAILY ORAL 04/15/19 09:00 05/15/19 08:59 04/15/19 08:23 Clopidogrel Bisulfate (Plavix) 75 mg DAILY ORAL 04/15/19 09:00 05/15/19 08:59 04/15/19 08:23 Dextrose (Dextrose 50%) 25 ml Q30M PRN IV Hypoglycemia 04/14/19 21:15 05/14/19 21:14 Dextrose (Dextrose 50%) 50 ml Q30M PRN IV Hypoglycemia 04/14/19 21:15 05/14/19 21:14 Diphenhydramine HCl (Benadryl) 25 mg Q6H PRN ORAL Itching/Pruritis 04/14/19 21:15 05/14/19 21:14 Docusate Sodium (Colace) 100 mg EVERY 12 HOURS ORAL 04/15/19 09:00 05/15/19 08:59 04/15/19 08:22 Glipizide (Glucotrol) 7.5 mg DAILY ORAL 04/15/19 09:00 05/15/19 08:59 04/15/19 08:22 Heparin Sodium (Porcine) (Heparin 5000 units/ml) 5,000 units EVERY 12 HOURS SUBQ 04/15/19 09:00 05/15/19 08:59 04/15/19 08:24 Insulin Aspart (NovoLOG) BEFORE MEALS AND HS SUBQ 04/15/19 06:30 05/15/19 06:29 Metoprolol Tartrate (Lopressor) 100 mg Q12H ORAL 04/15/19 09:00 05/15/19 08:59 Ondansetron HCl (Zofran) 4 mg Q6H PRN IVP Nausea & Vomiting 04/14/19 21:15 05/14/19 21:14 Polyethylene Glycol (Miralax) 17 gm HSPRN PRN ORAL Constipation 04/14/19 21:15 05/14/19 21:14 Assessment/Plan Problem List: (1) Blood blister Assessment & Plan: 73 year old male with left hand dorsal aspect large 6cm x 6cm blood blister. was told to come to ED for eval admitted for care and management noted to have large blood wound on left hand surgery called and noted large blood blister was noted to spontaneously open after admission and bleed wound evaluated at bedside. open blood blister with clot noted with patients permission blister non viable epidermis was excised and blood clot evacuated. dermis clean. dressings applied patient tolerated well will monitor while inpatient. daily dressings thank you ICD Codes: T14.8XXA - Other injury of unspecified body region, initial encounter SNOMED: 094290271 (2) Skin lesion of hand ICD Codes: L98.9 - Disorder of the skin and subcutaneous tissue, unspecified SNOMED: 059772683, [id number] (3) Hyperkalemia ICD Codes: E87.5 - Hyperkalemia SNOMED: 47974254, 51692404 (4) Gastritis ICD Codes: K29.70 - Gastritis, unspecified, without bleeding SNOMED: 5303223 (5) Colon polyps ICD Codes: K63.5 - Polyp of colon SNOMED: 29994916 Terrell Wolf Apr 15, 2019 12:32
--- NOTE | 2019-04-15 13:47 | History and Physical ---
History of Present Illness General Date patient seen: Apr 15, 2019 Reason for Hospitalization: Skin Rash/Abscess Present Illness HPI 73 year old male with pmh of ESRD on HD Tue/Tue (last was this past tuesday), presented with complaints of non-fainful blister on L dorsum of hand. States started a few days ago and started fto get bigger and color darker for past 2 days. pt denies any trauma, referred to ed for eval. has no other complaints. Pt denies sensory or motor defects, nausea, vomiting, fevers, chills, abdominal complaints or urinary complaints. Allergies: Coded Allergies: No Known Allergies (Verified Allergy, Unknown, 03/09/11) Medication History Scheduled Amlodipine Besylate* (Amlodipine Besylate*), 10 MG ORAL DAILY, (Reported) Aspirin* (Aspir-Low*), 81 MG ORAL DAILY, (Reported) Calcium Acetate (Calcium Acetate), 667 MG PO DA, (Reported) Cinacalcet* (Sensipar*), 30 MG ORAL DAILY, (Reported) Clopidogrel* (Clopidogrel*), 75 MG ORAL DAILY, (Reported) Glipizide* (Glucotrol*), 7.5 MG PO DAILY, (Reported) Linagliptin (Tradjenta), 5 MG PO DA, (Reported) Metoprolol Tartrate* (Metoprolol Tartrate*), 100 MG PO Q12H, (Reported) Silodosin (Rapaflo), 8 MG ORAL DAILY, (Reported) Simvastatin (Zocor), 40 MG PO BID, (Reported) Patient History History Provided By: Patient, Medical Record Healthcare decision maker Resuscitation status Full Code Advanced Directive on File No Review of Systems Constitutional: Reports: no symptoms Eye: Reports: no symptoms ENT: Reports: no symptoms Respiratory: Reports: no symptoms Cardiovascular: Reports: no symptoms Gastrointestinal: Reports: no symptoms Genitourinary: Reports: no symptoms Musculoskeletal: Reports: no symptoms Skin: Reports: other - fluid filled blister on L hand Psychiatric: Reports: no symptoms Neurological: Reports: no symptoms Endocrine: Reports: no symptoms Hematologic/Lymphatic: Reports: no symptoms Physical Exam General Appearance: WD/WN, no apparent distress, alert Lines, tubes and drains: peripheral HEENT: normocephalic, atraumatic Neck: non-tender, normal alignment, supple Respiratory/Chest: chest wall non-tender, lungs clear Cardiovascular/Chest: normal peripheral pulses, normal rate, regular rhythm Abdomen: normal bowel sounds, non tender, soft Extremities: normal range of motion, other - +AV Fistula + thrill Skin Exam: normal pigmentation 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 Last 24 Hour Vital Signs Date Time Temp Pulse Resp B/P (MAP) Pulse Ox O2 Delivery O2 Flow Rate FiO2 04/15/19 09:00 Room Air 04/15/19 09:00 60 155/50 04/15/19 08:23 62 155/50 04/15/19 08:00 58 04/15/19 08:00 98.4 62 18 155/50 (85) 100 04/15/19 04:00 54 04/15/19 04:00 97.3 62 18 102/60 (74) 99 04/15/19 00:00 59 04/15/19 00:00 97.9 60 18 98/58 (71) 99 04/14/19 23:04 98.5 62 17 161/49 100 Room Air 04/14/19 22:56 Room Air 04/14/19 21:47 98.6 56 18 165/42 100 Room Air 04/14/19 20:10 98.4 60 17 160/76 100 Room Air 04/14/19 18:08 98.1 57 18 136/79 (98) 99 Room Air 04/14/19 18:08 98.1 18 136/79 99 Room Air Intake and Output 04/14/19 04/15/19 18:59 06:59 Intake Total 0 ml Output Total 100 ml Balance -100 ml Intake Oral 0 ml Output Urine Total 100 ml Laboratory Tests Test 04/14/19 18:50 04/14/19 21:27 04/15/19 08:39 White Blood Count 9.1 K/UL (4.8-10.8) 8.2 K/UL (4.8-10.8) Red Blood Count 4.20 M/UL (4.70-6.10) L 4.10 M/UL (4.70-6.10) L Hemoglobin 12.7 G/DL (14.2-18.0) L 12.6 G/DL (14.2-18.0) L Hematocrit 39.2 % (42.0-52.0) L 39.1 % (42.0-52.0) L Mean Corpuscular Volume 93 FL (80-99) 95 FL (80-99) Mean Corpuscular Hemoglobin 30.2 PG (27.0-31.0) 30.7 PG (27.0-31.0) Mean Corpuscular Hemoglobin Concent 32.4 G/DL (32.0-36.0) 32.2 G/DL (32.0-36.0) Red Cell Distribution Width 16.1 % (11.6-14.8) H 16.5 % (11.6-14.8) H Platelet Count 176 K/UL (150-450) 164 K/UL (150-450) Mean Platelet Volume 6.1 FL (6.5-10.1) L 6.6 FL (6.5-10.1) Neutrophils (%) (Auto) 71.7 % (45.0-75.0) 65.3 % (45.0-75.0) Lymphocytes (%) (Auto) 18.6 % (20.0-45.0) L 24.2 % (20.0-45.0) Monocytes (%) (Auto) 6.1 % (1.0-10.0) 6.9 % (1.0-10.0) Eosinophils (%) (Auto) 3.2 % (0.0-3.0) H 2.8 % (0.0-3.0) Basophils (%) (Auto) 0.3 % (0.0-2.0) 0.8 % (0.0-2.0) Erythrocyte Sedimentation Rate 43 MM/HR (0-20) H Prothrombin Time 10.3 SEC (9.30-11.50) Prothromb Time International Ratio 1.0 (0.9-1.1) Activated Partial Thromboplast Time 26 SEC (23-33) Sodium Level 142 MMOL/L (136-145) 138 MMOL/L (136-145) Potassium Level 5.8 MMOL/L (3.5-5.1) H 4.8 MMOL/L (3.5-5.1) Chloride Level 101 MMOL/L (98-107) 99 MMOL/L (98-107) Carbon Dioxide Level 33 MMOL/L (21-32) H 30 MMOL/L (21-32) Anion Gap 8 mmol/L (5-15) 9 mmol/L (5-15) Blood Urea Nitrogen 45 mg/dL (7-18) H 55 mg/dL (7-18) H Creatinine 6.7 MG/DL (0.55-1.30) H 7.1 MG/DL (0.55-1.30) H Estimat Glomerular Filtration Rate mL/min (>60) mL/min (>60) Glucose Level 172 MG/DL (74-106) H 132 MG/DL (74-106) H Calcium Level 9.7 MG/DL (8.5-10.1) 9.5 MG/DL (8.5-10.1) Total Bilirubin 0.4 MG/DL (0.2-1.0) Aspartate Amino Transf (AST/SGOT) 16 U/L (15-37) Alanine Aminotransferase (ALT/SGPT) 12 U/L (12-78) Alkaline Phosphatase 79 U/L (46-116) Total Creatine Kinase 75 U/L (26-308) C-Reactive Protein, Quantitative < 0.4 mg/dL (0.00-0.90) Total Protein 7.5 G/DL (6.4-8.2) Albumin 4.0 G/DL (3.4-5.0) Globulin 3.5 g/dL Albumin/Globulin Ratio 1.1 (1.0-2.7) Urine Color Pale yellow Urine Appearance Clear Urine pH 8 (4.5-8.0) Urine Specific [place] 1.010 (1.005-1.035) Urine Protein 4+ (NEGATIVE) H Urine Glucose (UA) 2+ (NEGATIVE) H Urine Ketones Negative (NEGATIVE) Urine Blood 1+ (NEGATIVE) H Urine Nitrite Negative (NEGATIVE) Urine Bilirubin Negative (NEGATIVE) Urine Urobilinogen Normal MG/DL (0.0-1.0) Urine Leukocyte Esterase 1+ (NEGATIVE) H Urine RBC 0-2 /HPF (0 - 0) H Urine WBC 2-4 /HPF (0 - 0) Urine Squamous Epithelial Cells None /LPF (NONE/OCC) Urine Bacteria Few /HPF (NONE) Urine Osmolality 298 mOsm/kg (429-449) L Height (Feet): 5 Height (Inches): 11.00 Weight (Pounds): 190 Medications Current Medications Medications (Trade) Dose Ordered Sig/Diamond Route PRN Reason Start Time Stop Time Status Last Admin Dose Admin Acetaminophen (Tylenol) 650 mg Q4H PRN ORAL Mild Pain (Pain Scale 1-3) 04/14/19 21:15 05/14/19 21:14 Amlodipine Besylate (Norvasc) 10 mg DAILY ORAL 04/15/19 09:00 05/15/19 08:59 04/15/19 08:23 Aspirin (Ecotrin) 81 mg DAILY ORAL 04/15/19 09:00 05/15/19 08:59 04/15/19 08:22 Cinacalcet (Sensipar) 30 mg DAILY ORAL 04/15/19 09:00 05/15/19 08:59 04/15/19 08:23 Clopidogrel Bisulfate (Plavix) 75 mg DAILY ORAL 04/15/19 09:00 05/15/19 08:59 04/15/19 08:23 Dextrose (Dextrose 50%) 25 ml Q30M PRN IV Hypoglycemia 04/14/19 21:15 05/14/19 21:14 Dextrose (Dextrose 50%) 50 ml Q30M PRN IV Hypoglycemia 04/14/19 21:15 05/14/19 21:14 Diphenhydramine HCl (Benadryl) 25 mg Q6H PRN ORAL Itching/Pruritis 04/14/19 21:15 05/14/19 21:14 Docusate Sodium (Colace) 100 mg EVERY 12 HOURS ORAL 04/15/19 09:00 05/15/19 08:59 04/15/19 08:22 Glipizide (Glucotrol) 7.5 mg DAILY ORAL 04/15/19 09:00 05/15/19 08:59 04/15/19 08:22 Heparin Sodium (Porcine) (Heparin 5000 units/ml) 5,000 units EVERY 12 HOURS SUBQ 04/15/19 09:00 05/15/19 08:59 04/15/19 08:24 Insulin Aspart (NovoLOG) BEFORE MEALS AND HS SUBQ 04/15/19 06:30 05/15/19 06:29 Metoprolol Tartrate (Lopressor) 100 mg Q12H ORAL 04/15/19 09:00 05/15/19 08:59 Ondansetron HCl (Zofran) 4 mg Q6H PRN IVP Nausea & Vomiting 04/14/19 21:15 05/14/19 21:14 Polyethylene Glycol (Miralax) 17 gm HSPRN PRN ORAL Constipation 04/14/19 21:15 05/14/19 21:14 Assessment/Plan Status: doing well Assessment/Plan: 73 year old male with pmh of ESRD on HD (last was this past tuesday), presented with complaints of non-fainful blister on L dorsum of hand, admitted for management. #Hemorrhagic Blister on Left hand dorsum -surgery consulted -Wound care -daily dressings -pain control -CTM #ESRD on HD Tue -Renal consulted (Dr. Botello) -had HD on tuesday -no signs of fluid overload -Cont sensipar #HTN --cont norvasc 10mg daily and metoprolol #CAD -Pt unsure why he is on ASA and Plavix - will cont for now -Need to contact PCP on Tuesday #Hyperkalemia -s/p treatment -repeat K acceptable -CTM #DM -hold PO DM meds- can restart on discharge -ISS #Dispo -likely DC in AM if stable Code Kaiako Kura [place] of note may not reflect time of encounter Naomi Horne MD Apr 15, 2019 13:46
--- NOTE | 2019-04-15 14:21 | NUR ---
NURSE NOTES: Dr. Wolf made aware of a new blister is forming on right hand. No order given at this time. Will continue to monitor.
--- NOTE | 2019-04-15 14:30 | Diagnostic Imaging Report ---
Indication: left hand pain. Comparison: None Findings: 3 views of the left hand were obtained. Normal alignment is demonstrated. No acute fractures, erosions, or periosteal reaction are seen. There is soft tissue swelling along the dorsum of the hand. Correlate clinically. Some vascular calcifications noted for example in the radial artery. IMPRESSION: Soft tissue swelling. Correlate clinically
--- NOTE | 2019-04-15 14:30 | Diagnostic Imaging Report ---
Indication: Chest pain Comparison: 03/10/2011 A single view chest radiograph was obtained. Findings: No definite infiltrate or pulmonary vascular congestion identified. The heart is enlarged. The aorta is mildly enlarged consistent with atherosclerotic vascular disease. There is a left axillary stent noted. The bones are osteopenic. Impression: No acute disease
--- NOTE | 2019-04-15 15:00 | NUR ---
NURSE NOTES: BS rechecked 49 at 1330, 200ml apple juice given. BS rechecked at 1420 BS 60. Dextrose 25ml IVP given. Dr. Horne at the bedside, made aware of BS. Per Dr. Horne discontinue Glipizide PO, change to lispro sliding scale. Called Pharmacy to verification for lispro. Per pharmacist, hospital only have NovoLog. Dr. Horne at the nursing station made aware of no lispro at the hospital and patient already on NovoLog sliding scale. No order given at this time. Will continue to monitor.
[2019-04-15 16:00] VITALS: BP 134/50
--- NOTE | 2019-04-15 19:12 | NUR ---
HAND-OFF: Report given to DANIELLA Moeller. Endorse last BS was 76. Patient in a stable condition at this time.
--- NOTE | 2019-04-15 19:49 | NUR ---
NURSE NOTES: Received report from Rickie BREWER. Pt was resting in the bed AO x4. Sitting on the chair. calm and comfortable. Instructed to use the call light in case of he would try to go to bed. Pt acknowledged. Will follow the plan of care.
--- NOTE | 2019-04-15 20:25 | NUR ---
NURSE NOTES: Left hand wound dressing is not saturated and endorsed by am shift RN around 1600. Wound looks intact. No drainage noted. Will follow the MD orders.
--- NOTE | 2019-04-15 20:26 | NUR ---
NURSE NOTES: BS is 60. Apple juice and jello given to increase the BS. PT is AO x4. No s.s of hypoglycemia noted. Will recheck the BS after 15 minutes.
[2019-04-15 20:37] VITALS: BP 130/51
[2019-04-16] VITALS: BP 116/72
[2019-04-16 04:00] VITALS: BP 127/50
[2019-04-16] MEDS: NovoLOG Insulin Flexpen SUBQ SCH ×2 (06:23→11:30)
--- NOTE | 2019-04-16 07:25 | NUR ---
HAND-OFF: Report given to Rickie BREWER.
--- NOTE | 2019-04-16 07:58 | NUR ---
NURSE NOTES: Received report from DANIELLA Moeller. Patient in bed resting no active s/s cardiac, respiratory distress noticed at this time. Patient AOx4, on room air. IV on right AC 18G, asymptomatic, patent, intact. Dressing on left hand intact, dry. Endorsed latest BS 84. Bed in lowest position, side rails upx2, call light within reach. Will continue to monitor.
[2019-04-16 08:00] VITALS: BP 150/50
--- NOTE | 2019-04-16 08:47 | NUR ---
CASE MANAGEMENT:REVIEW 73 YR OLD MALE FROM HOME TO ER PMH: DIALYSIS HD T-TH-SAT LAST HD 04/14 (DAY OF ADMISSION) CC; SI: HYPERKALEMIA. LT HAND BLISTER/SKIN LESION 98.1 18 136/79 99% RA K+5.8 BUN+45 CR+6.7 IS: IV LASIX IV CA GLUCONATE IV INSULIN IV D50W CHEST XRAY : TO TELEMETRY PLAN: SURGICAL CONSULT 04/16/19 SI: HEMORRHAGIC BLISTER ON LT HAND HYPERKALEMIA. ESRD ON HD S/P LESION EXCISED AND BLOOD CLOT EVACUATED 97.2 56 18 127/50 100% ON RA k+5.8 bun+45 cr+6.7 IS: HEPARIN SQ Q12 NORVASC PO QD ASA PO QD PLAVIX PO QD LOPRESSOR PO Q12 : TO TELEMETRY PLAN: DAILY DRESSING CHANGES
[2019-04-16] MEDS: Docusate 100mg cap ORAL SCH (09:22)
[2019-04-16] MEDS: Aspirin EC 81mg tab ORAL SCH (09:22)
[2019-04-16 09:24] VITALS: BP 150/50
[2019-04-16] MEDS: Heparin 5000 units/ml inj SUBQ SCH (09:27)
[2019-04-16] MEDS: Sensipar 30mg Tab ORAL SCH (09:34)
--- NOTE | 2019-04-16 10:46 | Consultation ---
Consult Note Consult Note asked to eval for dialysis management 73 y old - ESRD on HD twice weekly on and Sat Next HD due 04/17 ER: HPI 73-year-old male with history of kidney disease currently on dialysis here complaining of a non-painful fluid-filled mass on left hand on the dorsum side. Patient reports that started changing color into black and getting bigger for the past 2 days after it first appeared. Denies any fall or injury. Patient reports that he gets his dialysis 2 times a week on Tuesdays and Saturdays did get his dialysis today and was told to come to the ER due to the lesion in his hand. Patient has complete range of motion's with no sensory or motor deficit. Patient has a AV fistula with good thrill. Has no apparent distress and is stable. Denies chest pain, shortness of breath, palpitation, abdominal pain, hematuria, nausea vomiting. Patient is able to make urine. No Known Allergies (Verified Allergy, Unknown, 03/09/11) Past Medical History: No History, Except For Hx Cardiac Problems: Yes Hx Hypertension: Yes Hx Diabetes: Yes Hx Gastrointestinal Problems: Yes Hx Dialysis: Yes - Tue , SAT examined data reviewed Assessment/Plan ESRD Left hand blister DM HTN plan: HD in am if in house Adjust BP meds per order ? DC ?? surg note wound evaluated at bedside. open blood blister with clot noted with patients permission blister non viable epidermis was excised and blood clot evacuated. dermis clean. dressings applied daily dressings Tiago Botello MD Apr 16, 2019 10:46
--- NOTE | 2019-04-16 10:52 | Surgery Progress Note ---
Surgery Progress Note Subjective Additional Comments doing well. no complaints. right hand formed small blood blister as well. Objective Last 24 Hour Vital Signs Date Time Temp Pulse Resp B/P (MAP) Pulse Ox O2 Delivery O2 Flow Rate FiO2 04/16/19 09:24 67 150/50 04/16/19 09:00 63 150/50 04/16/19 09:00 Room Air 04/16/19 08:00 97.7 67 18 150/50 (83) 99 04/16/19 04:00 56 04/16/19 04:00 97.2 58 18 127/50 (75) 100 04/16/19 00:00 58 04/16/19 00:00 98.1 60 18 116/72 (87) 100 04/15/19 21:00 Room Air 04/15/19 20:39 58 130/51 04/15/19 20:37 97.4 58 18 130/51 (77) 100 04/15/19 20:00 61 04/15/19 16:00 97.2 63 18 134/50 (78) 100 04/15/19 16:00 67 04/15/19 12:00 60 04/15/19 12:00 98.0 61 20 166/54 (91) 98 I&O Intake and Output 04/15/19 04/16/19 19:00 07:00 Intake Total 480 ml 400 ml Output Total 100 ml Balance 380 ml 400 ml Intake Oral 480 ml 400 ml Output Urine Total 100 ml # Voids 1 Dressing: saturated Wound: clean Cardiovascular: RSR Respiratory: clear Abdomen: soft, flat, non-tender, present bowel sounds, non-distended Extremities: no edema, no tenderness, no cyanosis, pulses, other Plan Problems: (1) Blood blister Assessment & Plan: 73 year old male with left hand dorsal aspect large 6cm x 6cm blood blister. was told to come to ED for eval admitted for care and management noted to have large blood wound on left hand surgery called and noted large blood blister was noted to spontaneously open after admission and bleed wound evaluated at bedside. open blood blister with clot noted with patients permission blister non viable epidermis was excised and blood clot evacuated. dermis clean. right hand with small 2cm x 1cm blood blister forming. incised and evacuated dressings applied patient tolerated well will monitor while inpatient. daily dressings okay to d/c home discuss antiplt with prescribing physician upon discharge thank you (2) Skin lesion of hand (3) Hyperkalemia (4) Gastritis (5) Colon polyps Terrell Wolf Apr 16, 2019 10:52
--- NOTE | 2019-04-16 11:08 | NUR ---
NURSE NOTES: Called [facility] nephrology tele [phone], spoke with IAN and informed patient schedule for HD tomorrow 04/17/[address] Botello. Will continue to monitor.
[2019-04-16] MEDS ORDERED: Calcium Acetate 667mg Tab ORAL SCH (11:30)
--- NOTE | 2019-04-16 12:05 | Discharge Instructions ---
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 Daily dressing change with NS then xeroform and cover with treasure in bilateral dorsal hand Diet: 2 GM sodium (low sodium), diabetic calorie control Resume Normal Activity?: Yes Activity: resume normal activities For Surgical Patients Clean and Dry: surgical site Dressing Care: keep dry and clean Contact your physician for: bleeding, redness, swelling For Congestive Heart Failure Reminder Report to your physician any weight gain of 5 pounds or more in one week. Bob Gonzalez MD Apr 16, 2019 12:05
[2019-04-16] MEDS ORDERED: Docusate 100mg cap ORAL SCH (13:00)
--- NOTE | 2019-04-16 13:44 | Discharge Summary ---
Discharge Summary Hospital Course Date of Admission Apr 14, 2019 at 21:55 Date of Discharge Apr 16, 2019 at 1400 Admitting Diagnosis hyperkalemia, dialysis pt, left and right dorsal hand blister HPI Jake Carmona is a 73 year old male who was admitted on Apr 14, 2019 at 21:55 for Hyperkalemia, Left Hand Blister Consultations General Surgery. Dr. Teran did debridment of dorsal L hand blister and R dorsal hand blister with evacuation of hematoma. No complications. Procedures as above Hospital Course Assessment/Plan: 73 year old male with pmh of ESRD on HD Tue/Tue (last was this past tuesday), presented with complaints of non-fainful blister on L dorsum of hand, admitted for management. #Hemorrhagic Blister on Left hand dorsum -surgery consulted and debridement completed on the L and R dorsal hand. -Wound care recommended with wet to dry, xeroform and gauze daily. #ESRD on HD Tue/ Tue -Renal consulted (Dr. Botello) -had HD on tuesday, next HD as outpatient tomorrow Tuesday -no signs of fluid overload -Cont sensipar #HTN --cont norvasc 10mg daily and metoprolol #CAD -Pt unsure why he is on ASA and Plavix as there is no evidence of PCI or stenting procedure per patient report. He is advised to STOP Plavix for now and follow up with PCP in 2 weeks to discuss the need for Plavix. -Need to contact PCP on follow up visit 1-2 weeks. #Hyperkalemia -s/p treatment -repeat K acceptable #DM -hold PO DM meds- can restart on discharge -ISS Discharge Medications Continued Medications: Amlodipine Besylate* (Amlodipine Besylate*) 10 Mg Tablet 10 MG ORAL DAILY, TAB (This prescription has been renewed) Aspirin* (Aspir-Low*) 81 Mg Tablet. 81 MG ORAL DAILY, TAB (This prescription has been renewed) Calcium Acetate (Calcium Acetate) 667 Mg Tablet 667 MG PO DA, TAB (This prescription has been renewed) Cinacalcet* (Sensipar*) 30 Mg Tablet 30 MG ORAL DAILY, TAB (This prescription has been renewed) Glipizide* (Glucotrol*) 5 Mg Tablet 7.5 MG PO DAILY, #10 TAB (This prescription has been renewed) Take 1 tablet by mouth every day before breakfast. Linagliptin (Tradjenta) 5 Mg Tablet 5 MG PO DA, TAB (This prescription has been renewed) Metoprolol Tartrate* (Metoprolol Tartrate*) 100 Mg Tablet 100 MG PO Q12H, #20 TAB (This prescription has been renewed) Take 1 tablet by mouth every 12 hours. Silodosin (Rapaflo) 8 Mg Capsule 8 MG ORAL DAILY, CAP (This prescription has been renewed) Simvastatin (Zocor) 40 Mg Tablet 40 MG PO BID (This prescription has been renewed) Discontinued Medications: Clopidogrel* (Clopidogrel*) 75 Mg Tablet 75 MG ORAL DAILY, TAB Discharge Condition Upon Discharge: stable Discharge Disposition Patient was discharged to HOME Discharge Instructions Discharge Instructions Services Upon Discharge: home health services, other - home health post acute care nurse per orders. Daily dressing change with NS then xeroform and cover with treasure in bilateral dorsal hand Activity: resume normal activities For Surgical Patients Clean and Dry: surgical site Dressing Care: keep dry and clean Contact your physician for: bleeding, redness, swelling Bob Gonzalez MD Apr 16, 2019 13:44
--- NOTE | 2019-04-16 14:20 | NUR ---
NURSE NOTES: Patient discharged to home with home health per Dr. Gonzalez. traffic monitor specialist returned to gambling monitor, IV removed, and ID removed and placed in shredder. Patient discharged with all belongings, family member, daughter, picked up the patient via private vehicle. Patient refused to count on money and stated " I got everything" and signed belonging list.
--- NOTE | 2019-04-16 14:23 | NUR ---
NURSE NOTES: Called [facility] nephrology tele [phone] and spoke with Mauricio and informed patient discharge today, so no need of HD for tomorrow 04/17/19.
== END 2019-04-16 14:16 | disposition home health service (06) | DRG 606 ==
LOC: EMR 20:13 → EDBEDREQ 21:36 → 2E 21:55
PROC: 0H9FXZZ Drainage of Right Hand Skin, External Approach (ICD-10-PCS; principal; 2019-04-16)
PROC: 0H9GXZZ Drainage of Left Hand Skin, External Approach (ICD-10-PCS; principal; 2019-04-16)
DX: S60.522A Blister (nonthermal) of left hand, initial encounter (principal); N18.6 End stage renal disease; I12.0 Hypertensive chronic kidney disease with stage 5 chronic kidney disease or end stage renal disease; E87.5 Hyperkalemia; S60.521A Blister (nonthermal) of right hand, initial encounter; Z99.2 Dependence on renal dialysis; E11.9 Type 2 diabetes mellitus without complications; X58.XXXA Exposure to other specified factors, initial encounter; I25.10 Atherosclerotic heart disease of native coronary artery without angina pectoris; Z79.02 Long term (current) use of antithrombotics/antiplatelets; Z79.82 Long term (current) use of aspirin; K29.70 Gastritis, unspecified, without bleeding; K63.9 Disease of intestine, unspecified
CPT/HCPCS: 36415; 71045; 80048; 80053; 81003; 82550; 83935; 85025; 85610; 85651; 85730; 86140; 86850; 86900; 86901; 87081; 96374; 96375; 99285; J1815

== ENCOUNTER 2019-10-20 12:23 | Observation (INO) | payer MEDICARE, OTHER ==
[~2019-10-20] VITALS: Ht 172.7 cm; Wt 86.2 kg
--- NOTE | 2019-10-20 07:30 | NUR ---
NURSE NOTES: RECEIVED PATIENT LYING IN BED, AWAKE, ALERT/ORIENTED X4, ITALIAN SPEAKING, ABLE TO MAKE SIMPLE NEEDS KNOWN IN [place] CITIZ[place], DENIES PAIN. BILATERAL CHEEKS/LIPS SWOLLEN SECONDARY TO ALLERGIC REACTION, DENIES DIFFICULTY BREATHING. NO SIGNS AND SYMPTOMS OF ACUTE CARDIO RESPIRATORY DISTRESS/SHORTNESS OF BREATH, DENIES CHEST PAIN, NOTED WITH EDEMA TO BILATERAL LOWER EXTREMITIES, MORE PRONOUNCED TO LEFT LOWER EXTREMITY, ENCOURAGED ELEVATION, VERBALIZED UNDERSTANDING. SIDE RAILS UP X2 FOR MOBILITY, BED IN LOWEST POSITION FOR SAFETY, ENCOURAGED PATIENT TO UTILIZE CALL LIGHT FOR ASSISTANCE, VERBALIZED UNDERSTANDING. CONTINUE WITH CURRENT PLAN OF CARE. NAD. Addendum: 10/21/19 at 0625 by LOUANN BURGOS LVN CHARTED IN ERROR
[2019-10-20] MEDS ORDERED: Solu-MEDROL 125mg Inj IVP ONE (13:30)
[2019-10-20] MEDS ORDERED: DiphenhydrAMINE 50mg/ml Inj IVP ONE (13:30)
--- NOTE | 2019-10-20 14:00 | NUR ---
ED Nurse Note:pt. came from home with c/o sore throat ,he just had dialysis this morning, blood was sent to labs
[2019-10-20 14:03] LABS: HEMATOCRIT 34.2 % (42.0-52.0); HEMOGLOBIN 11.4 G/DL (14.2-18.0); MEAN CORPUSCULAR VOLUME 93 FL (80-99); PLATELET COUNT 236 K/UL (150-450); RED BLOOD COUNT 3.66 M/UL (4.70-6.10); RED CELL DISTRIBUTION WIDTH 14.8 % (11.6-14.8); WHITE BLOOD COUNT 16.2 K/UL (4.8-10.8)
[2019-10-20 14:27] LABS: ALANINE AMINOTRANSFERASE 19 U/L (12-78); ALBUMIN 2.8 G/DL (3.4-5.0); ALBUMIN/GLOBULIN RATIO 0.7 (1.0-2.7); ALKALINE PHOSPHATASE 91 U/L (46-116); ANION GAP 8 mmol/L (5-15); ASPARTATE AMINO TRANSFERASE 15 U/L (15-37); BILIRUBIN,TOTAL 0.7 MG/DL (0.2-1.0); BLOOD UREA NITROGEN 24 mg/dL (7-18); CALCIUM 8.8 MG/DL (8.5-10.1); CARBON DIOXIDE 37 MMOL/L (21-32); CHLORIDE 95 MMOL/L (98-107); CREATININE 4.6 MG/DL (0.55-1.30); SODIUM 139 MMOL/L (136-145)
--- NOTE | 2019-10-20 14:28 | Consultation ---
Consult Note Consult Note asked to eval at the request of Dr Bryan for dialysis management patient dialysed today , came to ER for lip swelling 73 year old male with pmh of ESRD on HD Tue/Tue , . Pt denies sensory or motor defects, nausea, vomiting, fevers, chills, abdominal complaints or urinary complaints. Allergies: Coded Allergies: No Known Allergies (Verified Allergy, Unknown, 03/09/11) seen in Er examined Amlodipine Besylate* (Amlodipine Besylate*), 10 MG ORAL DAILY, (Reported) Aspirin* (Aspir-Low*), 81 MG ORAL DAILY, (Reported) Calcium Acetate (Calcium Acetate), 667 MG PO DA, (Reported) Cinacalcet* (Sensipar*), 30 MG ORAL DAILY, (Reported) Clopidogrel* (Clopidogrel*), 75 MG ORAL DAILY, (Reported) Glipizide* (Glucotrol*), 7.5 MG PO DAILY, (Reported) Linagliptin (Tradjenta), 5 MG PO DA, (Reported) Metoprolol Tartrate* (Metoprolol Tartrate*), 100 MG PO Q12H, (Reported) Silodosin (Rapaflo), 8 MG ORAL DAILY, (Reported) Simvastatin (Zocor), 40 MG PO BID, (Reported) Assessment/Plan ESRD Leukocytosis DM HTN Anemia admit dialysis as needed cultures keep BP and BS in check Tiago Botello MD Oct 20, 2019 14:28
[2019-10-20 14:33] LABS: POTASSIUM 2.6 MMOL/L (3.5-5.1)
--- NOTE | 2019-10-20 14:40 | Emergency Room Report ---
History of Present Illness General Chief Complaint: General Complaint Source: Patient, Medical Record Present Illness HPI 74-year-old male presents ED for evaluation. Walked in complaining of lip swelling started 3 days ago. Notes swelling to his upper lip. Denies lower lip swelling. Denies tongue swelling. Denies shortness of breath. Denies any known food or drug allergies. History of end-stage renal disease on dialysis. Gets dialysis Tuesday. Got dialysis today. Denies chest pain or shortness of breath. No other aggravating relieving factors. Denies any other associated symptoms Allergies: Coded Allergies: No Known Allergies (Verified Allergy, Unknown, 03/09/11) Patient History Past Medical History: DM, HTN, renal disease, dialysis Past Surgical History: none Pertinent Family History: none Social History: Denies: smoking, alcohol use, drug use Immunizations: UTD Reviewed Nursing Documentation: PMH: Agreed; PSxH: Agreed Nursing Documentation-PMH Past Medical History: No History, Except For Hx Cardiac Problems: Yes Hx Hypertension: Yes Hx Diabetes: Yes Hx Cancer: No Hx Gastrointestinal Problems: Yes Hx Dialysis: Yes - T, TH, SAT Hx Neurological Problems: No Review of Systems All Other Systems: negative except mentioned in HPI Physical Exam Vital Signs Date Time Temp Pulse Resp B/P (MAP) Pulse Ox O2 Delivery O2 Flow Rate FiO2 10/20/19 12:35 98.4 65 18 133/44 (73) 99 Room Air Sp02 EP Interpretation: reviewed, normal General Appearance: no apparent distress, alert, GCS 15, non-toxic Head: normocephalic, atraumatic Eyes: bilateral eye normal inspection, bilateral eye PERRL ENT: hearing grossly normal, normal pharynx, no angioedema, normal voice, other - upper lip swelling Neck: full range of motion, supple/symm/no masses Respiratory: chest non-tender, lungs clear, normal breath sounds, speaking full sentences Cardiovascular #1: regular rate, rhythm, no edema Cardiovascular #2: 2+ carotid (R), 2+ carotid (L), 2+ radial (R), 2+ radial (L) , 2+ dorsalis pedis (R), 2+ dorsalis pedis (L) Gastrointestinal: normal bowel sounds, non tender, soft, non-distended, no guarding, no rebound Rectal: deferred Genitourinary: normal inspection, no CVA tenderness Musculoskeletal: back normal, normal range of motion, gait/station normal, non- tender Neurologic: alert, motor strength/tone normal, oriented x3, sensory intact, responsive, speech normal Psychiatric: judgement/insight normal, memory normal, mood/affect normal, no suicidal/homicidal ideation Reflexes: 3+ bicep (R), 3+ bicep (L), 3+ tricep (R), 3+ tricep (L), 3+ knee (R) , 3+ knee (L) Skin: other - See nursing skin notes Lymphatic: no adenopathy Medical Decision Making Diagnostic Impression: Primary Impression: Angioedema Qualified Codes: T78.3XXA - Angioneurotic edema, initial encounter Additional Impression: ESRD on dialysis ER Course Hospital Course 74-year-old male presents with lip swelling. History of end-stage renal disease on dialysis Differential diagnoses include: allergic reaction, angioedema, cellultis Clinical course Patient placed on stretcher. playground monitor. After initial history, exam reveals elderly male in no acute distress. There is pronounced upper lip swelling. No tongue swelling no lower lip swelling. No stridor. Remainder of exam unremarkable. I ordered Solu-Medrol, Benadryl, labs, EKG, CXR Labs reviewed - noted leukocytosis, K 2.6, BUN/Cr elevated EKG - RBBB, no acute ischemic changes interpreted by me CXR - no acute process discused with Dr Franz. Explained that there can be hypokalemia immediately after dialysis and not to correct at this time Patient is protecting his airway case discussed with Dr. Bryan and he agreed to admit the patient to his service for further care and support i. I feel this is a highly complex case requiring extensive working including EKG/Rhythm strip, Xray/CT/US, Blood/urine lab work, repeat exams while in ED, and administration of strong opiates/narcotics for pain control, admission to hospital or close patient follow up. Diagnosis - angioedema, ESRD on dialysis admitted to telemtry OBS in serious condition Labs Test 10/20/19 13:25 White Blood Count 16.2 K/UL (4.8-10.8) Red Blood Count 3.66 M/UL (4.70-6.10) Hemoglobin 11.4 G/DL (14.2-18.0) Hematocrit 34.2 % (42.0-52.0) Mean Corpuscular Volume 93 FL (80-99) Mean Corpuscular Hemoglobin 31.1 PG (27.0-31.0) Mean Corpuscular Hemoglobin Concent 33.3 G/DL (32.0-36.0) Red Cell Distribution Width 14.8 % (11.6-14.8) Platelet Count 236 K/UL (150-450) Mean Platelet Volume 6.3 FL (6.5-10.1) Neutrophils (%) (Auto) % (45.0-75.0) Lymphocytes (%) (Auto) % (20.0-45.0) Monocytes (%) (Auto) % (1.0-10.0) Eosinophils (%) (Auto) % (0.0-3.0) Basophils (%) (Auto) % (0.0-2.0) Differential Total Cells Counted 100 Neutrophils % (Manual) 88 % (45-75) Lymphocytes % (Manual) 4 % (20-45) Monocytes % (Manual) 7 % (1-10) Eosinophils % (Manual) 1 % (0-3) Basophils % (Manual) 0 % (0-2) Band Neutrophils 0 % (0-8) Platelet Estimate Adequate Platelet Morphology Normal Anisocytosis 1+ Sodium Level 139 MMOL/L (136-145) Potassium Level 2.6 MMOL/L (3.5-5.1) Chloride Level 95 MMOL/L (98-107) Carbon Dioxide Level 37 MMOL/L (21-32) Anion Gap 8 mmol/L (5-15) Blood Urea Nitrogen 24 mg/dL (7-18) Creatinine 4.6 MG/DL (0.55-1.30) Estimat Glomerular Filtration Rate mL/min (>60) Glucose Level 157 MG/DL (74-106) Calcium Level 8.8 MG/DL (8.5-10.1) Total Bilirubin 0.7 MG/DL (0.2-1.0) Aspartate Amino Transf (AST/SGOT) 15 U/L (15-37) Alanine Aminotransferase (ALT/SGPT) 19 U/L (12-78) Alkaline Phosphatase 91 U/L (46-116) Troponin I 0.000 ng/mL (0.000-0.056) Total Protein 7.1 G/DL (6.4-8.2) Albumin 2.8 G/DL (3.4-5.0) Globulin 4.3 g/dL Albumin/Globulin Ratio 0.7 (1.0-2.7) EKG Diagnostic Results Rate: normal Rhythm: NSR ST Segments: no acute changes ASA given to the pt in ED: No Rhythm Strip Diag. Results EP Interpretation: yes Rhythm: NSR, no PVC's, no ectopy Chest X-Ray Diagnostic Results Chest X-Ray Diagnostic Results : Chest X-Ray Ordered: Yes # of Views/Limited/Complete: 1 View Indication: Shortness of Breath EP Interpretation: Yes Interpretation: no consolidation, no effusion, no pneumothorax, no acute cardiopulmonary disease Impression: No acute disease Electronically Signed by: Electronically signed by Cresencio Valiente MD Last Vital Signs Date Time Temp Pulse Resp B/P (MAP) Pulse Ox O2 Delivery O2 Flow Rate FiO2 10/20/19 12:35 98.4 65 18 133/44 (73) 99 Room Air Status: improved Disposition: ADMITTED INPATIENT Condition: Serious Referrals: Casey Bryan MD (PCP) Cresencio Valiente MD Oct 20, 2019 14:40
--- NOTE | 2019-10-20 14:44 | Diagnostic Imaging Report ---
EXAM: XR Chest, 1 View CLINICAL HISTORY: SOB TECHNIQUE: Frontal view of the chest. COMPARISON: 04/14/19. FINDINGS: Lungs: Unremarkable. No consolidation. Pleural space: Unremarkable. No pneumothorax. Heart: Borderline cardiomegaly. Mediastinum: Calcified aorta. Bones/joints: Degenerative changes. IMPRESSION: Borderline cardiomegaly. No overt edema
[2019-10-20] MEDS ORDERED: HydrALAZINE 25mg tab ORAL PRN (14:45)
[2019-10-20] MEDS: Metoprolol Tartrate 50mg tab ORAL SCH ×2 (15:00→20:33)
[2019-10-20 15:07] LABS: APPEARANCE,URINE CLEAR; BILIRUBIN, URINE NEGATIVE (NEGATIVE); GLUCOSE, URINE (UA) 3+ (NEGATIVE); KETONES,URINE NEGATIVE (NEGATIVE); LEUKOCYTE ESTERASE ,URINE 1+ (NEGATIVE); NITRITE,URINE NEGATIVE (NEGATIVE); PH,URINE 9 (4.5-8.0); PROTEIN,URINE 4+ (NEGATIVE); UROBILINOGEN,URINE NORMAL MG/DL (0.0-1.0)
[2019-10-20 15:10] LABS: COLOR,URINE YELLOW
[2019-10-20 15:11] VITALS: BP 133/44
[2019-10-20 15:50] VITALS: BP 136/49
--- NOTE | 2019-10-20 15:55 | NUR ---
NURSE NOTES: Patient transferred from ED via gurney, in stable condition. On room air, No acute distress/SOB noted. Able to make needs known, Denies pain at this time. phototypesetting equipment monitor placed, IV on Right FA, patent. Belonging check done by charge nurse and transferring nurse. Vital signs taken. Bed in low position and locked, Call light within reach, Encouraged to use call light when needed. Will continue plan of care.
--- NOTE | 2019-10-20 16:00 | NUR ---
ED Nurse Note:called report to tele- pt. was taken to the floor, condition stable
[2019-10-20] MEDS: Docusate 100mg cap ORAL SCH (17:58)
[2019-10-20] MEDS ORDERED: DiphenhydrAMINE 50mg/ml Inj IVP PRN (18:00)
--- NOTE | 2019-10-20 19:30 | NUR ---
NURSE NOTES: RECEIVED PATIENT LYING IN BED, AWAKE, ALERT/ORIENTED X4, CONGOLESE SPEAKING, ABLE TO MAKE SIMPLE NEEDS KNOWN IN TAJIK, DENIES PAIN. BILATERAL CHEEKS/LIP SWOLLEN, DENIES DIFFICULTY BREATHING/SWALLOWING. NO SIGNS AND SYMPTOMS OF ACUTE CARDIO RESPIRATORY DISTRESS/SHORTNESS OF BREATH, DENIES CHEST PAIN, EDEMA NOTED TO BILATERAL LOWER EXTREMITY, MORE PRONOUNCED ON LEFT LOWER EXTREMITY. AV SHUNT INTACT TO LEFT UPPER ARM, POSITIVE BRUITT/THRILL. SIDE RAILS UP X2 FOR MOBILITY, BED IN LOWEST POSITION FOR SAFETY, ENCOURAGED PATIENT TO UTILIZE CALL LIGHT FOR ASSISTANCE, VERBALIZED UNDERSTANDING. CONTINUE WITH CURRENT PLAN OF CARE. NAD.
--- NOTE | 2019-10-20 19:30 | NUR ---
HAND-OFF: Report given to Aysha/CHONG, Patient is in stable condition, Endorsed plan of care.
[2019-10-20 20:00] VITALS: BP 129/49
[2019-10-20] MEDS: Heparin 5000 units/ml inj SUBQ SCH (20:34)
--- NOTE | 2019-10-20 23:15 | History and Physical Report ---
DATE OF ADMISSION: 10/20/2019 HISTORY OF PRESENT ILLNESS: The patient is a very pleasant 74-year-old gentleman with history of end-stage renal disease, on dialysis and history of diabetes and hypertension who presented to the emergency room with complaints of upper lip swelling over the past three days. He denies any shortness of breath. Denies any swelling in his mouth. No rash. Denies any new medications. No chest pain. He denies any drug allergies. No lip bite. The patient is not on an EDEL inhibitor or an ARB. He gets dialysis on Tuesdays, , and Saturdays. He got dialyzed today. Denies any chest pain or shortness of breath. No fevers or chills. No cough. No wheezing. No abdominal pain. No nausea or vomiting. No changes in BM. PAST MEDICAL HISTORY: Includes history of end-stage renal disease, on dialysis; history of diabetes; and history of hypertension. ALLERGIES: No known drug allergies. SOCIAL HISTORY: The patient is . He does not smoke. Does not drink any alcohol or use any drugs. MEDICATIONS: Please see his reconciled med list. REVIEW OF SYSTEMS: A 12-point review of systems reviewed and negative except for above. FAMILY HISTORY: Noncontributory. LABORATORY AND DIAGNOSTIC DATA: White count is 16.2, hemoglobin 11.4, hematocrit 34.3, and platelet count of 236,000. His sodium was 139, potassium was 3.6, chloride 95, bicarb 37, BUN of 24, and creatinine 4.6. Troponin 0.00. Albumin 2.8. Urinalysis with 5 to 10 wbc's, 2 to 4 rbc's, 1+ leukocyte esterase, 4+ protein, and 3+ glucose. His chest x-ray reveals borderline cardiomegaly. No overt edema. EKG noted. ASSESSMENT AND PLAN: The patient is a pleasant 74-year-old gentleman with history of end-stage renal disease, on dialysis and history of hypertension and diabetes who presents with upper lip swelling. No mouth swelling. No uvular swelling. No rash. No cough. No shortness of breath. He is not on an EDEL or an ARB and denies taking any new medications. The patient was given Benadryl in the ER as well as Solu-Medrol. He does have leukocytosis, although this may have been after being given Solu-Medrol. He is afebrile. He does appear potentially to have UTI. The patient empirically on antibiotics. The patient will be admitted and observed. Given Benadryl as needed and given another dose of steroids in the morning. Monitor his lips. The patient should be on DVT and ulcer prophylaxis. I have asked Dr. Botello, his media marketing coordinator to see him for his dialysis. We will supplement his potassium. The patient is diabetic. We will place him on sliding scale insulin. Obtain a glycohemoglobin on him as well. Casey Bryan M.D. DR: PHILL JOB#: [id number] CC:
[2019-10-21] VITALS: BP 124/45
[2019-10-21] MEDS ORDERED: cefTRIAXone 1gm/D5W 55ml IVPB SCH ×2 (01:00)
[2019-10-21 04:00] VITALS: BP 141/50
[2019-10-21] MEDS ORDERED: Solu-MEDROL 125mg Inj IVP SCH (06:00)
--- NOTE | 2019-10-21 06:26 | NUR ---
NURSE NOTES: RESTED WELL, NO SIGNIFICANT CHANGE OF CONDITION NOTED THROUGHOUT THE NIGHT. SAFETY MAINTAINED. NAD.
--- NOTE | 2019-10-21 07:10 | NUR ---
NURSE NOTES: Received report from Aysha/CHONG, Patient is lying on bed, resting comfortably. On room air, no acute distress/SOB noted. Able to make needs known, Denies pain at this time. IV on right FA patent, no bleeding or infiltration noted. Bed in low position and locked, Call light within reach, Encouraged to use call light when needed. Will continue plan of care.
--- NOTE | 2019-10-21 07:30 | NUR ---
HAND-OFF: Report given to DANIELLA CALDERON.
[2019-10-21 07:31] LABS: HEMATOCRIT 35.2 % (42.0-52.0); HEMOGLOBIN 11.9 G/DL (14.2-18.0); MEAN CORPUSCULAR VOLUME 93 FL (80-99); PLATELET COUNT 262 K/UL (150-450); RED BLOOD COUNT 3.79 M/UL (4.70-6.10); RED CELL DISTRIBUTION WIDTH 15.2 % (11.6-14.8); WHITE BLOOD COUNT 9.8 K/UL (4.8-10.8)
[2019-10-21 08:00] VITALS: BP 142/56
[2019-10-21 08:14] LABS: ALANINE AMINOTRANSFERASE 17 U/L (12-78); ALBUMIN 2.7 G/DL (3.4-5.0); ALBUMIN/GLOBULIN RATIO 0.6 (1.0-2.7); ALKALINE PHOSPHATASE 99 U/L (46-116); ANION GAP 11 mmol/L (5-15); ASPARTATE AMINO TRANSFERASE 17 U/L (15-37); BILIRUBIN,TOTAL 0.5 MG/DL (0.2-1.0); CALCIUM 8.9 MG/DL (8.5-10.1); CARBON DIOXIDE 35 MMOL/L (21-32); CHLORIDE 94 MMOL/L (98-107); CHOLESTEROL 196 MG/DL (< 200); CREATININE 6.4 MG/DL (0.55-1.30); GAMMA GLUTAMYL TRANSPEPTIDASE 38 U/L (5-85); HDL CHOLESTEROL 50 MG/DL (40-60); PHOSPHORUS 5.3 MG/DL (2.5-4.9); POTASSIUM 3.1 MMOL/L (3.5-5.1); SODIUM 139 MMOL/L (136-145); TRIGLYCERIDES 63 MG/DL (30-150)
[2019-10-21 08:34] LABS: % IRON SATURATION 27 % (15-50); IRON 39 ug/dL (50-175); TOTAL IRON BINDING CAPACITY 143 ug/dL (250-450)
[2019-10-21 08:50] LABS: BLOOD UREA NITROGEN 42 mg/dL (7-18); FERRITIN 1710 NG/ML (8-388)
[2019-10-21] MEDS ORDERED: Sensipar 30mg Tab ORAL SCH (09:00)
[2019-10-21] MEDS ORDERED: Aspirin EC 81mg tab ORAL SCH (09:00)
[2019-10-21] MEDS ORDERED: ROCEPHIN ORAL SCH (09:00)
[2019-10-21] MEDS: Metoprolol Tartrate 50mg tab ORAL SCH (09:24)
[2019-10-21 09:25] VITALS: BP 142/56
[2019-10-21] MEDS: Docusate 100mg cap ORAL SCH (09:25)
[2019-10-21] MEDS: Heparin 5000 units/ml inj SUBQ SCH (09:26)
--- NOTE | 2019-10-21 11:29 | Nephrology Progress Note ---
Assessment/Plan Problem List: (1) ESRD on dialysis (2) Angioedema (3) Hypertensive kidney disease Assessment ESRD Leukocytosis DM HTN Anemia Plan stable po kcl once leukocytosis resolved dialysis as needed cultures keep BP and BS in check ? DC Subjective ROS Limited/Unobtainable: No Objective Objective Last 24 Hour Vital Signs Date Time Temp Pulse Resp B/P (MAP) Pulse Ox O2 Delivery O2 Flow Rate FiO2 10/21/19 09:25 66 142/56 10/21/19 09:24 66 142/56 10/21/19 09:00 Room Air 10/21/19 08:00 97.5 66 20 142/56 (84) 96 10/21/19 08:00 65 10/21/19 04:00 64 10/21/19 04:00 98.1 61 18 141/50 (80) 95 10/21/19 00:00 99.1 67 18 124/45 (71) 95 10/21/19 00:00 70 10/20/19 21:00 Room Air 10/20/19 20:33 58 144/59 10/20/19 20:00 70 10/20/19 20:00 99.7 73 18 129/49 (75) 97 10/20/19 17:02 Room Air 10/20/19 16:00 74 10/20/19 16:00 98.4 62 18 133/44 99 Room Air 10/20/19 15:50 98.4 69 18 136/49 (78) 94 10/20/19 15:11 98.4 62 18 133/44 99 Room Air 10/20/19 15:11 65 18 Room Air 10/20/19 12:35 98.4 65 18 133/44 (73) 99 Room Air Intake and Output 10/20/19 10/21/19 19:00 07:00 Intake Total 240 ml 535 ml Output Total 350 ml Balance 240 ml 185 ml Intake Oral 240 ml 480 ml IV Total 55 ml Output Urine Total 350 ml # Voids 2 2 Current Medications Medications (Trade) Dose Ordered Sig/Diamond Route PRN Reason Start Time Stop Time Status Last Admin Dose Admin Amlodipine Besylate (Norvasc) 10 mg DAILY ORAL 10/21/19 09:00 11/20/19 08:59 10/21/19 09:25 Aspirin (Ecotrin) 81 mg DAILY ORAL 10/21/19 09:00 11/20/19 08:59 10/21/19 09:24 Ceftriaxone Sodium 1 gm/ Dextrose 55 ml @ 110 mls/hr Q24H IVPB 10/21/19 01:00 10/28/19 00:59 10/21/19 03:19 Cinacalcet (Sensipar) 30 mg DAILY ORAL 10/21/19 09:00 11/20/19 08:59 10/21/19 09:24 Clopidogrel Bisulfate (Plavix) 75 mg DAILY ORAL 10/21/19 09:00 11/20/19 08:59 10/21/19 09:25 Diphenhydramine HCl (Benadryl) 25 mg Q4H PRN IVP Itching/swelling 10/20/19 18:00 11/19/19 17:59 Docusate Sodium (Colace) 100 mg TID ORAL 10/20/19 18:00 11/19/19 17:59 10/21/19 09:25 Heparin Sodium (Porcine) (Heparin 5000 units/ml) 5,000 units EVERY 12 HOURS SUBQ 10/20/19 21:00 11/19/19 20:59 10/21/19 09:26 Hydralazine HCl (Apresoline) 25 mg Q4H PRN ORAL bp over 160 syst 10/20/19 14:45 11/19/19 14:44 Metoprolol Tartrate (Lopressor) 50 mg Q12HR ORAL 10/20/19 15:00 11/19/19 14:59 10/21/19 09:24 Pantoprazole (Protonix) 40 mg Q12HR ORAL 10/20/19 21:00 11/19/19 20:59 10/21/19 09:25 Potassium Chloride (K-Dur) 20 meq ONCE ORAL 10/21/19 10:36 10/21/19 12:00 10/21/19 11:02 Laboratory Tests 10/20/19 13:25: White Blood Count 16.2H, Red Blood Count 3.66L, Hemoglobin 11.4L, Hematocrit 34.2L, Mean Corpuscular Volume 93, Mean Corpuscular Hemoglobin 31.1H, Mean Corpuscular Hemoglobin Concent 33.3, Red Cell Distribution Width 14.8, Platelet Count 236, Mean Platelet Volume 6.3L, Neutrophils (%) (Auto) , Lymphocytes (%) ( Auto) , Monocytes (%) (Auto) , Eosinophils (%) (Auto) , Basophils (%) (Auto) , Differential Total Cells Counted 100, Neutrophils % (Manual) 88H, Lymphocytes % (Manual) 4L, Monocytes % (Manual) 7, Eosinophils % (Manual) 1, Basophils % ( Manual) 0, Band Neutrophils 0, Platelet Estimate Adequate, Platelet Morphology Normal, Anisocytosis 1+, Sodium Level 139, Potassium Level 2.6*L, Chloride Level 95L, Carbon Dioxide Level 37H, Anion Gap 8, Blood Urea Nitrogen 24H, Creatinine 4.6H, Estimat Glomerular Filtration Rate , Glucose Level 157H, Calcium Level 8.8, Total Bilirubin 0.7, Aspartate Amino Transf (AST/SGOT) 15, Alanine Aminotransferase (ALT/SGPT) 19, Alkaline Phosphatase 91, Troponin I 0.000, Total Protein 7.1, Albumin 2.8L, Globulin 4.3, Albumin/Globulin Ratio 0.7L 10/20/19 14:40: Urine Color Yellow, Urine Appearance Clear, Urine pH 9, Urine Specific [place] 1.015, Urine Protein 4+H, Urine Glucose (UA) 3+H, Urine Ketones Negative, Urine Blood 2+H, Urine Nitrite Negative, Urine Bilirubin Negative, Urine Urobilinogen Normal, Urine Leukocyte Esterase 1+H, Urine RBC 2-4H, Urine WBC 5-10H, Urine Squamous Epithelial Cells Occasional, Urine Bacteria Occasional 10/21/19 05:30: White Blood Count 9.8, Red Blood Count 3.79L, Hemoglobin 11.9L, Hematocrit 35.2L , Mean Corpuscular Volume 93, Mean Corpuscular Hemoglobin 31.4H, Mean Corpuscular Hemoglobin Concent 33.8, Red Cell Distribution Width 15.2H, Platelet Count 262, Mean Platelet Volume 6.6, Neutrophils (%) (Auto) , Lymphocytes (%) (Auto) , Monocytes (%) (Auto) , Eosinophils (%) (Auto) , Basophils (%) (Auto) , Differential Total Cells Counted 100, Neutrophils % ( Manual) 94H, Lymphocytes % (Manual) 6L, Monocytes % (Manual) 0L, Eosinophils % ( Manual) 0, Basophils % (Manual) 0, Band Neutrophils 0, Platelet Estimate Adequate, Platelet Morphology Normal, Anisocytosis 1+, Sodium Level 139, Potassium Level 3.1L, Chloride Level 94L, Carbon Dioxide Level 35H, Anion Gap 11 , Blood Urea Nitrogen 42H, Creatinine 6.4H, Estimat Glomerular Filtration Rate , Glucose Level 187H, Calcium Level 8.9, Total Bilirubin 0.5, Aspartate Amino Transf (AST/SGOT) 17, Alanine Aminotransferase (ALT/SGPT) 17, Alkaline Phosphatase 99, Troponin I 0.000, Total Protein 7.1, Albumin 2.7L, Globulin 4.4 , Albumin/Globulin Ratio 0.6L, Hemoglobin A1c 5.7, Uric Acid 4.3, Phosphorus Level 5.3H, Magnesium Level 2.3, Iron Level 39L, Total Iron Binding Capacity 143L, Percent Iron Saturation 27, Unsaturated Iron Binding 104L, Ferritin 1710H , Gamma Glutamyl Transpeptidase 38, C-Reactive Protein, Quantitative 33.2H, Pro- B-Type Natriuretic Peptide > 09247K, Triglycerides Level 63, Cholesterol Level 196, LDL Cholesterol 124H, HDL Cholesterol 50, Cholesterol/HDL Ratio 3.9, Vitamin B12 Level 692, Folate [Pending], Thyroid Stimulating Hormone (TSH) 0.535 Height (Feet): 5 Height (Inches): 8.00 Weight (Pounds): 190 Cardiovascular: normal rate Respiratory/Chest: lungs clear Abdomen: soft Tiago Botello MD Oct 21, 2019 11:29
--- NOTE | 2019-10-21 12:50 | NUR ---
NURSE NOTES: Discharge instruction given, Patient verbalized understanding. media monitor and IV removed, No distress or bleeding noted. Patient is in stable condition. Belonging check done and signed by patient. Escorted downstairs, Patient left with son via private vehicle.
== END 2019-10-21 12:50 | disposition home or self-care (01) ==
LOC: EMR 13:45 → 2E 13:49 → EDBEDREQ 14:27 → 2E 15:50
DX: I12.0 Hypertensive chronic kidney disease with stage 5 chronic kidney disease or end stage renal disease (principal); N18.6 End stage renal disease; Z99.2 Dependence on renal dialysis; T78.3XXA Angioneurotic edema, initial encounter; D72.829 Elevated white blood cell count, unspecified; E11.22 Type 2 diabetes mellitus with diabetic chronic kidney disease
CPT/HCPCS: 36415 ×2; 71045; 80053 ×2; 80061; 81001; 82607; 82728; 82746; 82977; 83036; 83540; 83550; 83735; 83880; 84100; 84443; 84484 ×2; 84550; 85007 ×2; 85025 ×2; 86140; 87081 ×2; 87086; 93005; 96374; 96375; 99285; J0696; J1200; J1644 ×2; J2930 ×2; J8499

== ENCOUNTER 2019-12-13 19:10 | Inpatient (IN) | payer MEDICARE, OTHER ==
[~2019-12-13] VITALS: Ht 175.3 cm; Wt 103.4 kg
[2019-12-13] MEDS ORDERED: Nitroglycerin Subl 0.4mg tab SL PRN (19:30)
--- NOTE | 2019-12-13 19:30 | NUR ---
ED Nurse Note: PAtient brought in form home by son with complaints of chest pain since 1600 today. Patient given 1 nitro pill sublingual. Unable to scan, scanner broken.
[2019-12-13 19:35] VITALS: BP 118/37
--- NOTE | 2019-12-13 19:44 | Emergency Room Report ---
History of Present Illness General Chief Complaint: Chest Pain Source: Patient Present Illness HPI Patient is a 74-year-old male presents after increased chest discomfort. Associated with shortness of breath. Prior history of renal disease. He normally gets dialyzed Tuesday and was last dialyzed on Tuesday. Reportedly not been having any fever. Prior history of diabetes. recent non productive cough. Patient had no recent travel. Patient has no known sick contacts. He had not been having any vomiting or diarrhea. Onset of symptoms approximately 2 days ago. Has left upper extremity dialysis access. COVID-19 risk:Travel to affect: No Has patient experienced jade: No Allergies: Coded Allergies: No Known Allergies (Verified Allergy, Unknown, 03/09/11) Patient History Past Medical History: see triage record Reviewed Nursing Documentation: PMH: Agreed; PSxH: Agreed Nursing Documentation-PMH Past Medical History: No History, Except For Hx Hypertension: Yes Hx Diabetes: Yes Hx Cancer: No Hx Gastrointestinal Problems: Yes Hx Dialysis: Yes - T, , SAT Hx Neurological Problems: No Review of Systems All Other Systems: negative except mentioned in HPI Physical Exam Vital Signs Date Time Temp Pulse Resp B/P (MAP) Pulse Ox O2 Delivery O2 Flow Rate FiO2 12/13/19 19:22 98.1 84 20 118/37 (64) 84 Room Air Sp02 EP Interpretation: reviewed, normal General Appearance: normal inspection, alert, moderate distress, Chronically Ill Head: atraumatic ENT: normal ENT inspection, hearing grossly normal, normal voice Neck: normal inspection, full range of motion, supple, no bony tend Respiratory: normal inspection, lungs clear, normal breath sounds, no respiratory distress, no retraction, no wheezing Cardiovascular #1: regular rate, rhythm, no edema Gastrointestinal: normal inspection, normal bowel sounds, non tender, soft, no guarding, no hernia, other - ventral hernia Genitourinary: no CVA tenderness Musculoskeletal: normal inspection, back normal, normal range of motion Neurologic: alert, responsive, speech normal, normal inspection Psychiatric: normal inspection, judgement/insight normal, mood/affect normal Medical Decision Making Diagnostic Impression: Primary Impression: Chest pain Additional Impression: ESRD (end stage renal disease) ER Course Patient presented for chest pain shortness of breath. Differential included but was not limited to anemia, pneumonia, pneumothorax, myocardial infarction, pericardial effusion, congestive heart failure, acidosis. Because of complexity of patient's case laboratory tests and imaging studies were ordered. Patient was noted to have some evidence of fluid overload with bilateral pedal edema. Patient states he did not attend dialysis today. He is normally dialyzed Tuesday. EKG interpreted by me showed normal sinus rhythm without acute ST or T wave changes. Right bundle branch block was noted. Patient was given aspirin. He was given nitroglycerin with improvement in his chest pain. He had been having a nonproductive cough for several days.Patient has no recent travel history. He lives in [place]. Dr. Casey Bryan was contacted for inpatient management due to primary care physician. Dr. Botello was contacted for nephrology consult. Labs Test 12/13/19 19:36 12/13/19 19:50 Arterial Blood pH 7.398 (7.350-7.450) Arterial Blood Partial Pressure CO2 43.0 mmHg (35.0-45.0) Arterial Blood Partial Pressure O2 81.6 mmHg (75.0-100.0) Arterial Blood HCO3 25.9 mmol/L (22.0-26.0) Arterial Blood Oxygen Saturation 95.3 % (95-100) Arterial Blood Base Excess 0.9 (-2-2) Wilson Test Positive White Blood Count 2.7 K/UL (4.8-10.8) Red Blood Count 3.60 M/UL (4.70-6.10) Hemoglobin 11.5 G/DL (14.2-18.0) Hematocrit 36.8 % (42.0-52.0) Mean Corpuscular Volume 102 FL (80-99) Mean Corpuscular Hemoglobin 32.0 PG (27.0-31.0) Mean Corpuscular Hemoglobin Concent 31.4 G/DL (32.0-36.0) Red Cell Distribution Width 19.1 % (11.6-14.8) Platelet Count 178 K/UL (150-450) Mean Platelet Volume 7.0 FL (6.5-10.1) Neutrophils (%) (Auto) % (45.0-75.0) Lymphocytes (%) (Auto) % (20.0-45.0) Monocytes (%) (Auto) % (1.0-10.0) Eosinophils (%) (Auto) % (0.0-3.0) Basophils (%) (Auto) % (0.0-2.0) Sodium Level 139 MMOL/L (136-145) Potassium Level 4.7 MMOL/L (3.5-5.1) Chloride Level 97 MMOL/L (98-107) Carbon Dioxide Level 27 MMOL/L (21-32) Anion Gap 15 mmol/L (5-15) Blood Urea Nitrogen 78 mg/dL (7-18) Creatinine 8.9 MG/DL (0.55-1.30) Estimat Glomerular Filtration Rate 5.8 mL/min (>60) Glucose Level 95 MG/DL (74-106) Lactic Acid Level 2.70 mmol/L (0.4-2.0) Calcium Level 9.1 MG/DL (8.5-10.1) Phosphorus Level 5.7 MG/DL (2.5-4.9) Magnesium Level 2.4 MG/DL (1.8-2.4) Total Bilirubin 0.5 MG/DL (0.2-1.0) Aspartate Amino Transf (AST/SGOT) 58 U/L (15-37) Alanine Aminotransferase (ALT/SGPT) 38 U/L (12-78) Alkaline Phosphatase 106 U/L (46-116) Total Creatine Kinase 88 U/L (26-308) Creatine Kinase MB 2.2 NG/ML (0.0-3.6) Creatine Kinase MB Relative Index 2.5 Troponin I 0.000 ng/mL (0.000-0.056) Pro-B-Type Natriuretic Peptide > 62944 pg/mL (0-125) Total Protein 6.9 G/DL (6.4-8.2) Albumin 3.2 G/DL (3.4-5.0) Globulin 3.8 g/dL Albumin/Globulin Ratio 0.8 (1.0-2.7) EKG Diagnostic Results Rate: normal Rhythm: NSR ST Segments: no acute changes Last Vital Signs Date Time Temp Pulse Resp B/P (MAP) Pulse Ox O2 Delivery O2 Flow Rate FiO2 12/13/19 19:22 98.1 84 20 118/37 (64) 84 Room Air Status: unchanged Disposition: ADMITTED INPATIENT Condition: Stable John Cassidy MD Dec 13, 2019 19:44
[2019-12-13 20:19] LABS: HEMATOCRIT 36.8 % (42.0-52.0); HEMOGLOBIN 11.5 G/DL (14.2-18.0); MEAN CORPUSCULAR VOLUME 102 FL (80-99); PLATELET COUNT 178 K/UL (150-450); RED CELL DISTRIBUTION WIDTH 19.1 % (11.6-14.8); WHITE BLOOD COUNT 2.7 K/UL (4.8-10.8)
[2019-12-13] MEDS ORDERED: Aspirin Baby 81mg ORAL ONE (20:30)
--- NOTE | 2019-12-13 20:30 | NUR ---
ED Nurse Note: Patient request warm blanket, patient is afebrile. Warm blanket provided.
[2019-12-13 20:36] LABS: ANION GAP 15 mmol/L (5-15); BLOOD UREA NITROGEN 78 mg/dL (7-18); CALCIUM 9.1 MG/DL (8.5-10.1); CARBON DIOXIDE 27 MMOL/L (21-32); CHLORIDE 97 MMOL/L (98-107); CREATININE 8.9 MG/DL (0.55-1.30); POTASSIUM 4.7 MMOL/L (3.5-5.1); SODIUM 139 MMOL/L (136-145)
[2019-12-13 20:41] LABS: ALANINE AMINOTRANSFERASE 38 U/L (12-78); ALBUMIN/GLOBULIN RATIO 0.8 (1.0-2.7); ALKALINE PHOSPHATASE 106 U/L (46-116); ASPARTATE AMINO TRANSFERASE 58 U/L (15-37); BILIRUBIN,TOTAL 0.5 MG/DL (0.2-1.0); CKMB 2.2 NG/ML (0.0-3.6); CREATINE KINASE 88 U/L (26-308); PHOSPHORUS 5.7 MG/DL (2.5-4.9)
[2019-12-13 20:49] LABS: ALBUMIN 3.2 G/DL (3.4-5.0)
[2019-12-13] MEDS ORDERED: Albuterol/Ipratropium 3ml neb HHN ONE (21:30)
--- NOTE | 2019-12-13 21:36 | NUR ---
ED Nurse Note: Repeat lactic drawn, will continue to monitor.
--- NOTE | 2019-12-13 21:47 | NUR ---
ED Nurse Note: Attempted to give report, RN busy will call back.
--- NOTE | 2019-12-13 22:19 | NUR ---
ED Nurse Note: Called and rendered report to [place] BREWER.
--- NOTE | 2019-12-13 22:34 | NUR ---
ED Nurse Note: Patient tranported to floor.
--- NOTE | 2019-12-13 23:04 | NUR ---
NURSE NOTES: Received pt from ER due to c/o chest pain, ,SOB and vomiting at home. Awake, alert and oriented., Speaks Maldivian only. but understands Jordanian. Left upper arm AV shunt with good bruit. Was dialyzed last Tuesday12/11/19. NSR on the monitor, BP low 84/40, n, afebrile, on at 2L/nc, 02 sat 95%. Pt has multiple wounds ( pls see pictures). initial tx was done . Pt abdomen was soft but enlarge due to hernia. Generalized 2-3+ edema noted to extremitie. Will continue to monitor.
[2019-12-13 23:30] VITALS: BP 80/45
[2019-12-14] VITALS (72 sets, daily range): BP systolic 59–152; BP diastolic 17–125
--- NOTE | 2019-12-14 00:51 | NUR ---
NURSE NOTES: IV NS 250ml bolus started to keep sbp above 90
[2019-12-14] MEDS ORDERED: NS 250 ML IVPB ONE ×2 (01:00→01:30)
--- NOTE | 2019-12-14 01:00 | NUR ---
NURSE NOTES: called Dr Bryan for orders, aware Dr Bryan with pts low BP with orders given. Pls see orders.
--- NOTE | 2019-12-14 01:22 | NUR ---
NURSE NOTES: BP 81/42 after 250ml bolus. Will repeat x1
--- NOTE | 2019-12-14 01:43 | NUR ---
NURSE NOTES: Complained of left rib pain, tylenol 650mg PO was given
--- NOTE | 2019-12-14 01:55 | NUR ---
NURSE NOTES: After 250 cc NS BP 80/33.
--- NOTE | 2019-12-14 02:30 | NUR ---
NURSE NOTES: Left rib pain level was 2 after tylenol 650mg PO
[2019-12-14] MEDS ORDERED: cefTRIAXone 1gm/D5W 55ml IVPB SCH ×2 (03:00)
--- NOTE | 2019-12-14 03:40 | NUR ---
NURSE NOTES: Transfer pts to ICU due to consistent low BP 70-80s
[2019-12-14] MEDS ORDERED: Azithromycin 500mg in D5W 275 ML IV SCH (04:00)
[2019-12-14] MEDS ORDERED: DOPamine 400mg/250ml 250 ML IV SCH (04:45)
--- NOTE | 2019-12-14 04:52 | Emergency Room Report ---
Physical Exam Vital Signs Date Time Temp Pulse Resp B/P (MAP) Pulse Ox O2 Delivery O2 Flow Rate FiO2 12/13/19 19:22 98.1 84 20 118/37 (64) 84 Room Air 12/13/19 22:53 3.0 32 Medical Decision Making Diagnostic Impression: Primary Impression: Chest pain Additional Impression: ESRD (end stage renal disease) ER Course Called to the ICU to insert a central line to start pressors due to hypotension. Significant scarring in the groins bilaterally made femoral line a suboptimal choice. Inserted a right internal jugular triple-lumen under ultrasound guidance without difficulty. See separate procedure section of this note for full details. Patient tolerated the procedure well. No complications. Sutured in place with good return. Chest x-ray confirms appropriate position. Remainder of care per ICU team. Recall as needed. Chest X-Ray Diagnostic Results Chest X-Ray Diagnostic Results : Chest X-Ray Ordered: Yes # of Views/Limited/Complete: 1 View Indication: Other - Line placement EP Interpretation: Yes Interpretation: other - Right internal jugular line in appropriate position Impression: Other - Appropriate position of right IJ Electronically Signed by: Electronically signed by Dr. Keegan Cole Last Vital Signs Date Time Temp Pulse Resp B/P (MAP) Pulse Ox O2 Delivery O2 Flow Rate FiO2 12/14/19 00:00 Nasal Cannula 2.0 12/14/19 00:00 73 12/13/19 22:53 20 99 32 20 96 12/13/19 22:34 98.1 95/39 Disposition: ADMITTED INPATIENT Condition: Stable Referrals: Casey Bryan MD (PCP) Procedures Central Line Central Line : Consent: Emergent Central Line Lumen: triple Maximal Sterile Barrier Tech: yes cap, yes mask, yes sterile gown, yes sterile gloves, yes large sterile sheet, yes hand hygiene, yes chlorhexidine prep No Max Barrier Tech Because: emergency insertion Central Line Postion: internal jugular (R) Anesthesia: Lidocaine cc's of anesthesia: 5 Complications: none Central Line Post Position: sutured, good blood return, position confirmed w / CXR Attempts: One Patient Tolerated: Well Complications: None Keegan Cole MD Dec 14, 2019 04:52
--- NOTE | 2019-12-14 05:00 | NUR ---
NURSE NOTES: ERMD was here and placed central line consented by the son.
--- NOTE | 2019-12-14 05:36 | Diagnostic Imaging Report ---
Indication: Dyspnea Comparison: 12/13/2019 A single view chest radiograph was obtained. Findings: The study is technically limited. Pulmonary vascularity may be mildly increased compared to the prior exam. Bones are osteopenic. Heart is enlarged. IMPRESSION: Suspected mild CHF
--- NOTE | 2019-12-14 05:45 | NUR ---
NURSE NOTES: Central line was verified by CXR and its in place per ER mD
--- NOTE | 2019-12-14 06:03 | NUR ---
NURSE NOTES: pt was started with DOpamine drip at 5mcg/kg/min. to keep sbp >90.
[2019-12-14] MEDS ORDERED: Nitroglycerin Subl 0.4mg tab SL PRN (06:05)
[2019-12-14] MEDS ORDERED: NovoLOG Insulin Flexpen SUBQ SCH (06:30)
[2019-12-14] MEDS ORDERED: GlipiZIDE 5mg tab ORAL SCH (06:30)
[2019-12-14] MEDS: NovoLOG Insulin Flexpen SUBQ SCH ×4 (06:30→21:00)
[2019-12-14] MEDS: GlipiZIDE 5mg tab ORAL SCH (06:30)
--- NOTE | 2019-12-14 06:30 | NUR ---
NURSE NOTES: Accucheck blood sugar 69mg/dl- 120ml of orange juice was given.
--- NOTE | 2019-12-14 06:40 | NUR ---
NURSE NOTES: Dopamine drip was increased to 10 mcg/min.
[2019-12-14 07:27] LABS: HEMATOCRIT 41.8 % (42.0-52.0); HEMOGLOBIN 13.8 G/DL (14.2-18.0); MEAN CORPUSCULAR VOLUME 99 FL (80-99); PLATELET COUNT 165 K/UL (150-450); RED BLOOD COUNT 4.21 M/UL (4.70-6.10); RED CELL DISTRIBUTION WIDTH 17.8 % (11.6-14.8); WHITE BLOOD COUNT 6.9 K/UL (4.8-10.8)
--- NOTE | 2019-12-14 07:30 | NUR ---
NURSE NOTES: Notify DR Bryan that pts extremities becoming mottled but pulses are palpable and able to move. Son at bedside. Md ordered to dcd Dopamine and switch to Levophed drip. Endorsed to RN Lucie, bedside rounds were done,
--- NOTE | 2019-12-14 07:30 | NUR ---
NURSE NOTES: Aware DR Bryan that pts blood sugar was 69mg/dl . 120ml orange juice was given. will endorsed to next RN to re checked blood sugar.
--- NOTE | 2019-12-14 07:31 | NUR ---
NURSE NOTES: Received patient from [place] BREWER. Patient is awake, alert and oriented x4, son at the bedside. Patient is sinus Rhythm on the heart monitor, HR 88. Receiving oxygen via nasal cannula at 2L/min, no signs of respiratory distress. IV site is Right IJ central line, patent, Dopamine was discontinued and Levophed was started at 2mcg/min. Left Upper arm AV shunt present, thrill and bruit present. Patient is complaining of pain in the left foot pain 10/10, will contact primary MD for orders. Bed is locked, placed in lowest position, side rails up x3, bed alarm on, call light within reach, head of bed elevated. Will continue to monitor.
--- NOTE | 2019-12-14 07:45 | NUR ---
NURSE NOTES: Spoke to the male pharmacist and notify that Dopamine drip was not in the iv spread sheets, Also aware charge histotechnologistDANIELLA Gómez.
[2019-12-14 08:13] LABS: ALANINE AMINOTRANSFERASE 43 U/L (12-78); ALBUMIN/GLOBULIN RATIO 0.8 (1.0-2.7); ALKALINE PHOSPHATASE 99 U/L (46-116); ANION GAP 19 mmol/L (5-15); ASPARTATE AMINO TRANSFERASE 43 U/L (15-37); BILIRUBIN,TOTAL 0.7 MG/DL (0.2-1.0); BLOOD UREA NITROGEN 84 mg/dL (7-18); CALCIUM 8.7 MG/DL (8.5-10.1); CARBON DIOXIDE 24 MMOL/L (21-32); CHLORIDE 95 MMOL/L (98-107); CHOLESTEROL 120 MG/DL (< 200); CREATININE 9.8 MG/DL (0.55-1.30); FERRITIN 1607 NG/ML (8-388); GAMMA GLUTAMYL TRANSPEPTIDASE 75 U/L (5-85); HDL CHOLESTEROL 53 MG/DL (40-60); PHOSPHORUS 5.8 MG/DL (2.5-4.9); POTASSIUM 4.7 MMOL/L (3.5-5.1); SODIUM 138 MMOL/L (136-145); TRIGLYCERIDES 124 MG/DL (30-150)
[2019-12-14 08:48] LABS: % IRON SATURATION 6 % (15-50); IRON 11 ug/dL (50-175); TOTAL IRON BINDING CAPACITY 173 ug/dL (250-450)
[2019-12-14] MEDS ORDERED: Heparin 5000 units/ml inj IV ONE (09:00)
[2019-12-14] MEDS ORDERED: Aspirin Baby 81mg ORAL SCH (09:00)
[2019-12-14] MEDS ORDERED: Calcium Acetate 667mg Tab ORAL SCH (09:00)
[2019-12-14] MEDS ORDERED: Heparin 5000 units/ml inj SUBQ SCH ×2 (09:00)
[2019-12-14] MEDS ORDERED: Heparin Sod 1000 units/ml 10ml IV PRN (09:00)
--- NOTE | 2019-12-14 09:13 | Pulmonolgy Critical Care Note ---
Critical Care - Asmt/Plan Assessment/Plan: Pulmonary Critical Care Consultation HPI Patient is a 74-year-old man with past history of CKD on HD, Diabetes, admitted with Congestive Heart Failure exacerbation, hypotension, had complained of increased chest discomfort, shortness of breath, non productive cough. He normally gets dialyzed Tuesday and was last dialyzed on Tuesday. Reportedly not been having any fever. Prior history of diabetes. Patient had no recent travel. Patient has no known sick contacts. He had not been having any vomiting or diarrhea. Onset of symptoms approximately 2 days ago. Has left upper extremity dialysis access. Allergies: Coded Allergies: No Known Allergies (Verified Allergy, Unknown, 03/09/11) Past Medical History: CKD on HD, Diabetes, GI disease SH: NC FH: NC All Other Systems: negative except mentioned in HPI Physical Exam Vital Signs Noted Currently on pressors PRN Date Time Temp Pulse Resp B/P (MAP) Pulse Ox O2 Delivery O2 Flow Rate FiO2 12/13/19 19:22 98.1 84 20 118/37 (64) 84 Room Air General Appearance: normal inspection, alert, Chronically Ill appearing Head: atraumatic ENT: normal ENT inspection, hearing grossly normal, normal voice Neck: normal inspection, full range of motion, supple, no bony tend Respiratory: normal inspection, lungs clear, normal breath sounds, no respiratory distress, no retraction, no wheezing Cardiovascular: regular rate, rhythm, HS1, HS2 normal, mild edema Gastrointestinal: normal inspection, normal bowel sounds, non tender, soft, no guarding, ventral hernia Genitourinary: no CVA tenderness Musculoskeletal: normal inspection, normal range of motion, mild edema Neurologic: alert, responsive, speech normal, no focal signs Impression: Chest pain Shortness of breath Mildly elevated Troponin Features on Congestive Heart Failure on CXR ESRD (end stage renal disease) on HD - had missed HD Diabetes Leukopenia Plan Hemodialysis per Renal O2/BiPAP PRN Pressors PRN Empiric AB Viral studies Droplet precautions 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 [employer]ER Medications ISS Aspirin PPX - heparin GTT Labs Noted Test 12/13/19 19:36 12/13/19 19:50 Arterial Blood pH 7.398 (7.350-7.450) Arterial Blood Partial Pressure CO2 43.0 mmHg (35.0-45.0) Arterial Blood Partial Pressure O2 81.6 mmHg (75.0-100.0) Arterial Blood HCO3 25.9 mmol/L (22.0-26.0) Arterial Blood Oxygen Saturation 95.3 % (95-100) Arterial Blood Base Excess 0.9 (-2-2) Wilson Test Positive White Blood Count 2.7 K/UL (4.8-10.8) Red Blood Count 3.60 M/UL (4.70-6.10) Hemoglobin 11.5 G/DL (14.2-18.0) Hematocrit 36.8 % (42.0-52.0) Mean Corpuscular Volume 102 FL (80-99) Mean Corpuscular Hemoglobin 32.0 PG (27.0-31.0) Mean Corpuscular Hemoglobin Concent 31.4 G/DL (32.0-36.0) Red Cell Distribution Width 19.1 % (11.6-14.8) Platelet Count 178 K/UL (150-450) Mean Platelet Volume 7.0 FL (6.5-10.1) Neutrophils (%) (Auto) % (45.0-75.0) Lymphocytes (%) (Auto) % (20.0-45.0) Monocytes (%) (Auto) % (1.0-10.0) Eosinophils (%) (Auto) % (0.0-3.0) Basophils (%) (Auto) % (0.0-2.0) Sodium Level 139 MMOL/L (136-145) Potassium Level 4.7 MMOL/L (3.5-5.1) Chloride Level 97 MMOL/L (98-107) Carbon Dioxide Level 27 MMOL/L (21-32) Anion Gap 15 mmol/L (5-15) Blood Urea Nitrogen 78 mg/dL (7-18) Creatinine 8.9 MG/DL (0.55-1.30) Estimat Glomerular Filtration Rate 5.8 mL/min (>60) Glucose Level 95 MG/DL (74-106) Lactic Acid Level 2.70 mmol/L (0.4-2.0) Calcium Level 9.1 MG/DL (8.5-10.1) Phosphorus Level 5.7 MG/DL (2.5-4.9) Magnesium Level 2.4 MG/DL (1.8-2.4) Total Bilirubin 0.5 MG/DL (0.2-1.0) Aspartate Amino Transf (AST/SGOT) 58 U/L (15-37) Alanine Aminotransferase (ALT/SGPT) 38 U/L (12-78) Alkaline Phosphatase 106 U/L (46-116) Total Creatine Kinase 88 U/L (26-308) Creatine Kinase MB 2.2 NG/ML (0.0-3.6) Creatine Kinase MB Relative Index 2.5 Troponin I 0.000 ng/mL (0.000-0.056) Pro-B-Type Natriuretic Peptide > 10042 pg/mL (0-125) Total Protein 6.9 G/DL (6.4-8.2) Albumin 3.2 G/DL (3.4-5.0) Globulin 3.8 g/dL Albumin/Globulin Ratio 0.8 (1.0-2.7) EKG: Rate: normal Rhythm: NSR ST Segments: no acute changes, RBBB CXR: Bilateral interstitial changes Critical Care - Objective Last 24 Hour Vital Signs Date Time Temp Pulse Resp B/P (MAP) Pulse Ox O2 Delivery O2 Flow Rate FiO2 12/14/19 07:51 144/116 12/14/19 07:30 103 30 129/72 (91) 99 12/14/19 07:00 100 28 111/81 (91) 99 12/14/19 06:30 86 27 82/27 (45) 99 12/14/19 06:15 85 21 84/34 (51) 99 12/14/19 06:07 86 21 87/36 (53) 99 12/14/19 06:00 81 22 103/42 (62) 99 12/14/19 05:30 81 22 103/35 (57) 99 12/14/19 05:00 78 17 76/17 (36) 100 12/14/19 04:30 78 22 80/50 (60) 100 12/14/19 04:09 76 15 65/30 (42) 100 12/14/19 04:00 70 12/14/19 04:00 98.6 77 17 66/49 (55) 100 12/14/19 03:40 82 18 86/40 (55) 100 12/14/19 01:55 77 17 80/33 (49) 100 12/14/19 00:00 Nasal Cannula 2.0 12/14/19 00:00 73 12/13/19 23:30 99.0 77 17 80/45 (57) 100 12/13/19 22:53 59 20 99 Nasal Cannula 3.0 32 63 20 96 12/13/19 22:34 98.1 81 20 95/39 84 Room Air 12/13/19 20:12 95/39 12/13/19 19:35 98.1 81 20 118/37 84 Room Air 12/13/19 19:35 84 20 Room Air 12/13/19 19:22 98.1 84 20 118/37 (64) 84 Room Air Micro: Microbiology Date/Time Source Procedure Growth Status 12/13/19 19:59 Nasal Nares - Final Complete 12/13/19 19:59 Nasal Nares - Final Complete Accucheck: 69 Critical Care - Subjective ROS Limited/Unobtainable: No Condition: critical IV Access: central EKG Rhythm: Sinus Rhythm Sputum Amount: None I&O: Intake and Output 12/13/19 12/14/19 19:00 07:00 Intake Total 350 ml Output Total 0 ml Balance 350 ml Intake Oral 100 ml IV Total 250 ml Output Urine Total 0 ml # Voids 60 John Velez MD Dec 14, 2019 09:13
[2019-12-14] MEDS: Aspirin Baby 81mg ORAL SCH (09:29)
[2019-12-14] MEDS: Morphine Sulfate 2mg/ml Inj(IV/IM USE ONLY) IVP PRN ×3 (09:29→18:55)
[2019-12-14] MEDS: Calcium Acetate 667mg Tab ORAL SCH (09:29)
[2019-12-14] MEDS: Heparin 25,000u/D5W 500ml 500 ML IV SCH (10:32)
[2019-12-14] MEDS ORDERED: Omnipaque-300 100ml vial INJ SCH (11:00)
--- NOTE | 2019-12-14 11:03 | Diagnostic Imaging Report ---
Indication: Left lower extremity pain and swelling. Technique: Duplex Doppler imaging performed from the left common femoral vein to the popliteal vein. FINDINGS: Normal compressibility demonstrated from the common femoral vein to the popliteal vein. Respiratory phasicity and good augmentation demonstrated on waveform analysis. There is no evidence of thrombosis. IMPRESSION: No evidence of deep venous thrombosis within the left lower extremity.
[2019-12-14] MEDS: Piperacillin/Tazobactam 2.25 GM in D5W 55 ML IVPB SCH ×2 (11:20→22:11)
[2019-12-14] MEDS ORDERED: Vancomycin 1.5gm/NS Premix IVPB ONE (11:30)
--- NOTE | 2019-12-14 11:50 | NUR ---
NURSE NOTES: Received call from Dr. Monson to discontinue droplet precaution.
--- NOTE | 2019-12-14 12:14 | Diagnostic Imaging Report ---
Indication: Dyspnea Comparison: 10/20/2019 A single view chest radiograph was obtained. Findings: No definite infiltrate or pulmonary vascular congestion identified. The heart is enlarged. The aorta is mildly enlarged consistent with atherosclerotic vascular disease. The bones are osteopenic. There are thoracic vertebral enthesophytes at multiple levels. Impression: No acute disease
--- NOTE | 2019-12-14 12:35 | NUR ---
NURSE NOTES: Patient's blood sugar was 113 mg/dL, no coverage for insulin.
--- NOTE | 2019-12-14 12:45 | NUR ---
MATH INTERVENTIONIST NOTE SW attempted to meet w/ pt. Pt was resting and appears to be lethargic. Pt was unable to engage in assessment d/t pt's condition. SW met w/ pt's eldest son, John Alford [phone]. Pt resides w/ the family at [address] [place] [id number]. Pt is and has four adult children. Emergency contacts provided: John Alford [phone] and Fidel Alford (son) [phone]. Per John, pt does not have AD/POLST/POA. John will be the decision maker for pt. Per John, pt was ambulatory w/ walker and independent w/ ADLs prior to admission. Pt did not have a caregiver. John is expressing full code at this point but willing to discuss the prognosis w/ MD and re-consider code status. Signed: 12/14/19 at 1250 by GEORGE GERONIMO <Co-Signature Required>
--- NOTE | 2019-12-14 12:57 | Consultation ---
History of Present Illness General Date patient seen: Dec 14, 2019 Reason for Hospitalization: Chest Pain Present Illness HPI This is a 74-year-old male with multi-medical comorbidities including diabetes and end-stage renal disease on hemodialysis through left upper extremity graft fistula Saturdays that presents [facility] with chest pain and upper respiratory symptoms. Identified to have abnormal labs, decubitus ulcers, abdominal discomfort, ill-appearing with elevated inflammatory markers, elevated BNP, leukopenia. Admitted for further care and management. In the intensive care unit being monitored closely. Surgery called to evaluate and assist with care. Patient seen, patient evaluated, chart reviewed. Patient is awake and somewhat alert but not fully responsive with direct answers. He is currently receiving dialysis and in no significant discomfort. He has abdominal distention and discomfort that he complains of. Allergies: Coded Allergies: No Known Allergies (Verified Allergy, Unknown, 03/09/11) Medication History Scheduled Amlodipine Besylate* (Amlodipine Besylate*), 10 MG ORAL DAILY, (Reported) Aspirin* (Aspir-Low*), 81 MG ORAL DAILY, (Reported) Calcium Acetate (Calcium Acetate), 667 MG PO DA, (Reported) Cinacalcet* (Sensipar*), 30 MG ORAL DAILY, (Reported) Glipizide* (Glucotrol*), 7.5 MG PO DAILY, (Reported) Linagliptin (Tradjenta), 5 MG PO DA, (Reported) Metoprolol Tartrate* (Metoprolol Tartrate*), 100 MG PO Q12H, (Reported) Silodosin (Rapaflo), 8 MG ORAL DAILY, (Reported) Simvastatin (Zocor), 40 MG PO BID, (Reported) Patient History Limited by: medical condition History Provided By: Patient, Medical Record, PMD Healthcare decision maker Martha Alford Resuscitation status Full Code Advanced Directive on File No Past Medical/Surgical History Past Medical/Surgical History: (1) Gastritis (2) Colon polyps (3) Blood blister (4) Blister of left hand (5) Hypertensive kidney disease (6) ESRD (end stage renal disease) (7) Chest pain Review of Systems Review of Symptoms General ROS: no weight loss or fever Psychological ROS: no depression or mood changes, no memory loss Ophthalmic ROS: no visual changes or eye irritation ENT ROS: no nasal congestion, hearing loss, dizziness Allergy and Immunology ROS: no allergic symptoms or urticaria Hematological and Lymphatic ROS: no swollen glands, unusual bleeding or bruising Endocrine ROS: no polyuria, polydipsia, weight changes, temperature intolerance Respiratory ROS: no cough, shortness of breath, or wheezing Cardiovascular ROS: no chest pain or dyspnea on exertion Gastrointestinal ROS: abdominal pain, bright red blood in stool. Musculoskeletal ROS: no myalgias or arthralgias Neurological ROS: no TIA or stroke symptoms Dermatological ROS: no new or changing skin lesions, rashes or pruritis Physical Exam Physical Exam General appearance: alert, mild distress, appears stated age Head: Normocephalic, without obvious abnormality, atraumatic Eyes: conjunctivae/corneas clear. PERRL, EOM's intact. Fundi benign Throat: Lips, mucosa, and tongue normal. Teeth and gums normal Neck: supple, symmetrical, trachea midline, no adenopathy, thyroid: not enlarged, symmetric, no tenderness/mass/nodules, no carotid bruit and no JVD Lungs: clear to auscultation bilaterally Heart: regular rate and rhythm, S1, S2 normal, no murmur, click, rub or gallop Abdomen: soft, discomfort/ tender. Bowel sounds decreased. distended, reducible hernia ventral umbilical Extremities: extremities LUE with fistula Pulses: and symmetric Skin: Skin color, texture, turgor normal. No rashes or lesions Neurologic: Grossly normal Last 24 Hour Vital Signs Date Time Temp Pulse Resp B/P (MAP) Pulse Ox O2 Delivery O2 Flow Rate FiO2 12/14/19 10:01 98.6 12/14/19 10:00 94 25 88/69 (75) 100 12/14/19 09:45 92 31 106/48 (67) 93 12/14/19 09:30 93 27 124/110 (115) 99 12/14/19 09:15 92 26 82/64 (70) 100 12/14/19 09:00 94 25 115/93 (100) 96 12/14/19 08:55 89 18 108/83 (91) 100 12/14/19 08:45 87 28 98/37 (57) 100 12/14/19 08:30 88 21 97/38 (57) 93 12/14/19 08:15 89 23 89/50 (63) 100 12/14/19 08:00 98.7 87 30 101/46 (64) 100 12/14/19 07:53 88 30 152/125 (134) 100 12/14/19 07:51 144/116 12/14/19 07:30 103 30 129/72 (91) 99 12/14/19 07:00 100 28 111/81 (91) 99 12/14/19 06:30 86 27 82/27 (45) 99 12/14/19 06:15 85 21 84/34 (51) 99 12/14/19 06:07 86 21 87/36 (53) 99 12/14/19 06:00 81 22 103/42 (62) 99 12/14/19 05:30 81 22 103/35 (57) 99 12/14/19 05:00 78 17 76/17 (36) 100 12/14/19 04:30 78 22 80/50 (60) 100 12/14/19 04:09 76 15 65/30 (42) 100 12/14/19 04:00 70 12/14/19 04:00 98.6 77 17 66/49 (55) 100 12/14/19 03:40 82 18 86/40 (55) 100 12/14/19 01:55 77 17 80/33 (49) 100 12/14/19 00:00 Nasal Cannula 2.0 12/14/19 00:00 73 12/13/19 23:30 99.0 77 17 80/45 (57) 100 12/13/19 22:53 59 20 99 Nasal Cannula 3.0 32 63 20 96 12/13/19 22:34 98.1 81 20 95/39 84 Room Air 12/13/19 20:12 95/39 12/13/19 19:35 98.1 81 20 118/37 84 Room Air 12/13/19 19:35 84 20 Room Air 12/13/19 19:22 98.1 84 20 118/37 (64) 84 Room Air Intake and Output 12/13/19 12/14/19 19:00 07:00 Intake Total 350 ml Output Total 0 ml Balance 350 ml Intake Oral 100 ml IV Total 250 ml Output Urine Total 0 ml # Voids 60 Laboratory Tests Test 12/13/19 19:36 12/13/19 19:50 12/13/19 21:39 12/14/19 06:54 Arterial Blood pH 7.398 (7.350-7.450) Arterial Blood Partial Pressure CO2 43.0 mmHg (35.0-45.0) Arterial Blood Partial Pressure O2 81.6 mmHg (75.0-100.0) Arterial Blood HCO3 25.9 mmol/L (22.0-26.0) Arterial Blood Oxygen Saturation 95.3 % (95-100) Arterial Blood Base Excess 0.9 (-2-2) Wilson Test Positive White Blood Count 2.7 K/UL (4.8-10.8) L 6.9 K/UL (4.8-10.8) # Red Blood Count 3.60 M/UL (4.70-6.10) L 4.21 M/UL (4.70-6.10) L Hemoglobin 11.5 G/DL (14.2-18.0) L 13.8 G/DL (14.2-18.0) L Hematocrit 36.8 % (42.0-52.0) L 41.8 % (42.0-52.0) L Mean Corpuscular Volume 102 FL (80-99) H 99 FL (80-99) Mean Corpuscular Hemoglobin 32.0 PG (27.0-31.0) H 32.9 PG (27.0-31.0) H Mean Corpuscular Hemoglobin Concent 31.4 G/DL (32.0-36.0) L 33.1 G/DL (32.0-36.0) Red Cell Distribution Width 19.1 % (11.6-14.8) H 17.8 % (11.6-14.8) H Platelet Count 178 K/UL (150-450) 165 K/UL (150-450) Mean Platelet Volume 7.0 FL (6.5-10.1) 6.0 FL (6.5-10.1) L Neutrophils (%) (Auto) % (45.0-75.0) % (45.0-75.0) Lymphocytes (%) (Auto) % (20.0-45.0) % (20.0-45.0) Monocytes (%) (Auto) % (1.0-10.0) % (1.0-10.0) Eosinophils (%) (Auto) % (0.0-3.0) % (0.0-3.0) Basophils (%) (Auto) % (0.0-2.0) % (0.0-2.0) Differential Total Cells Counted 100 100 Neutrophils % (Manual) 74 % (45-75) 90 % (45-75) H Lymphocytes % (Manual) 16 % (20-45) L 9 % (20-45) L Monocytes % (Manual) 3 % (1-10) 1 % (1-10) Eosinophils % (Manual) 0 % (0-3) 0 % (0-3) Basophils % (Manual) 0 % (0-2) 0 % (0-2) Band Neutrophils 7 % (0-8) 0 % (0-8) Platelet Estimate Adequate Adequate Platelet Morphology Normal Normal Hypochromasia 1+ Anisocytosis 1+ 1+ Sodium Level 139 MMOL/L (136-145) 138 MMOL/L (136-145) Potassium Level 4.7 MMOL/L (3.5-5.1) 4.7 MMOL/L (3.5-5.1) Chloride Level 97 MMOL/L (98-107) L 95 MMOL/L (98-107) L Carbon Dioxide Level 27 MMOL/L (21-32) 24 MMOL/L (21-32) Anion Gap 15 mmol/L (5-15) 19 mmol/L (5-15) H Blood Urea Nitrogen 78 mg/dL (7-18) H 84 mg/dL (7-18) H Creatinine 8.9 MG/DL (0.55-1.30) H 9.8 MG/DL (0.55-1.30) H Estimat Glomerular Filtration Rate 5.8 mL/min (>60) 5.2 mL/min (>60) Glucose Level 95 MG/DL (74-106) 94 MG/DL (74-106) Lactic Acid Level 2.70 mmol/L (0.4-2.0) H 2.30 mmol/L (0.66-2.22) H Calcium Level 9.1 MG/DL (8.5-10.1) 8.7 MG/DL (8.5-10.1) Phosphorus Level 5.7 MG/DL (2.5-4.9) H 5.8 MG/DL (2.5-4.9) H Magnesium Level 2.4 MG/DL (1.8-2.4) 2.2 MG/DL (1.8-2.4) Total Bilirubin 0.5 MG/DL (0.2-1.0) 0.7 MG/DL (0.2-1.0) Aspartate Amino Transf (AST/SGOT) 58 U/L (15-37) H 43 U/L (15-37) H Alanine Aminotransferase (ALT/SGPT) 38 U/L (12-78) 43 U/L (12-78) Alkaline Phosphatase 106 U/L (46-116) 99 U/L (46-116) Total Creatine Kinase 88 U/L (26-308) Creatine Kinase MB 2.2 NG/ML (0.0-3.6) Creatine Kinase MB Relative Index 2.5 Troponin I 0.000 ng/mL (0.000-0.056) 0.057 ng/mL (0.000-0.056) Pro-B-Type Natriuretic Peptide > 65182 pg/mL (0-125) H > 34867 pg/mL (0-125) H Total Protein 6.9 G/DL (6.4-8.2) 6.7 G/DL (6.4-8.2) Albumin 3.2 G/DL (3.4-5.0) L 3.0 G/DL (3.4-5.0) L Globulin 3.8 g/dL 3.7 g/dL Albumin/Globulin Ratio 0.8 (1.0-2.7) L 0.8 (1.0-2.7) L Hemoglobin A1c 6.1 % (4.3-6.0) H Uric Acid 7.6 MG/DL (2.6-7.2) H Iron Level 11 ug/dL (50-175) L Total Iron Binding Capacity 173 ug/dL (250-450) L Percent Iron Saturation 6 % (15-50) L Unsaturated Iron Binding 162 ug/dL (112-346) Ferritin 1607 NG/ML (8-388) H Gamma Glutamyl Transpeptidase 75 U/L (5-85) C-Reactive Protein, Quantitative 18.4 mg/dL (0.00-0.90) H Triglycerides Level 124 MG/DL (30-150) Cholesterol Level 120 MG/DL (< 200) LDL Cholesterol 41 mg/dL (<100) HDL Cholesterol 53 MG/DL (40-60) Cholesterol/HDL Ratio 2.3 (3.3-4.4) L Vitamin B12 Level 582 PG/ML (193-986) Folate 19.9 NG/ML (8.6-58.9) Thyroid Stimulating Hormone (TSH) 5.979 uiU/mL (0.358-3.740) Test 12/14/19 12:30 White Blood Count Pending Red Blood Count Pending Hemoglobin Pending Hematocrit Pending Mean Corpuscular Volume Pending Mean Corpuscular Hemoglobin Pending Mean Corpuscular Hemoglobin Concent Pending Red Cell Distribution Width Pending Platelet Count Pending Mean Platelet Volume Pending Neutrophils (%) (Auto) Pending Lymphocytes (%) (Auto) Pending Monocytes (%) (Auto) Pending Eosinophils (%) (Auto) Pending Basophils (%) (Auto) Pending Activated Partial Thromboplast Time Pending Hepatitis B Surface Antigen Pending Legionella pneumophila Group 1 Ab Pending Legionella pneumophilia IgM Group 1 Pending Mycoplasma pneumoniae IgG Antibody Pending Mycoplasma pneumoniae IgM Ab Titer Pending Microbiology Date/Time Source Procedure Growth Status 12/13/19 19:59 Blood Blood Culture - Preliminary Resulted 12/13/19 19:59 Nasal Nares - Final Complete 12/13/19 19:59 Nasal Nares - Final Complete Height (Feet): 5 Height (Inches): 9.00 Weight (Pounds): 228 Medications Current Medications Medications (Trade) Dose Ordered Sig/Diamond Route PRN Reason Start Time Stop Time Status Last Admin Dose Admin Acetaminophen (Tylenol) 650 mg Q4H PRN ORAL Mild Pain/Temp > 100.5 12/14/19 06:00 01/13/20 05:59 Albumin Human 100 ml @ 200 mls/hr PRN PRN IV sbp<90 during hd 12/14/19 09:00 12/16/19 23:59 Albuterol/ Ipratropium (Albuterol/ Ipratropium) 3 ml Q6HRT HHN 12/14/19 13:00 12/19/19 12:59 Aspirin (ASA) 81 mg DAILY ORAL 12/14/19 09:00 01/28/20 08:59 12/14/19 09:29 Atorvastatin Calcium (Lipitor) 40 mg BEDTIME ORAL 12/14/19 21:00 01/13/20 20:59 Azithromycin 500 mg/Dextrose 275 ml @ 275 mls/hr Q24HRS IV 12/15/19 04:00 12/21/19 04:59 Calcium Acetate (Phoslo) 667 mg DAILY ORAL 12/14/19 09:00 01/13/20 08:59 12/14/19 09:29 Dextrose (Dextrose 50%) 25 ml Q30M PRN IV Hypoglycemia 12/14/19 06:30 01/13/20 00:59 Dextrose (Dextrose 50%) 50 ml Q30M PRN IV Hypoglycemia 12/14/19 06:30 01/13/20 00:59 Glipizide (Glucotrol) 7.5 mg ACBREAKFAST ORAL 12/14/19 06:30 01/13/20 06:29 Heparin Sodium (Porcine) (Heparin Sod 1000 units/ml 10ml) 2,000 unit ONCE PRN IV FOR HD USE ONLY 12/14/19 09:00 12/16/19 08:59 Heparin Sodium/ Dextrose 500 ml @ 20.684 mls/ hr ADJUST PER PROTOCOL IV 12/14/19 09:00 01/13/20 08:59 12/14/19 10:32 Insulin Aspart (NovoLOG) BEFORE MEALS AND HS SUBQ 12/14/19 06:30 01/13/20 06:29 Iohexol (OMNIPAQUE-300 100ml) 100 ml ONCE INJ 12/14/19 11:00 12/14/19 18:00 Morphine Sulfate (Morphine Sulfate) 1 mg Q4H PRN IVP Moderate Pain (Pain Scale 4-6) 12/14/19 09:00 12/21/19 08:59 12/14/19 09:29 Nitroglycerin (Ntg) 0.4 mg Q5M PRN SL Prn Chest Pain 12/14/19 06:05 01/12/20 19:29 Norepinephrine Bitartrate 4 mg/ Dextrose 250 ml @ 0 mls/hr Q24H IV 12/14/19 07:30 01/13/20 07:29 12/14/19 07:51 Piperacillin Sod/ Tazobactam Sod 2.25 gm/Dextrose 55 ml @ 110 mls/hr Q8HR IVPB 12/14/19 10:30 12/19/19 10:29 12/14/19 11:20 Sodium Chloride 1,000 ml @ 100 mls/hr Q10H IV 12/14/19 09:00 01/13/20 08:59 12/14/19 09:29 Vancomycin HCl (Vanco rx to dose) 1 ea DAILY PRN MISC Per rx protocol 12/14/19 09:00 01/13/20 08:59 Vancomycin/Sodium Chloride 275 ml @ 137.5 mls/ hr ONCE ONCE IVPB 12/14/19 11:30 12/14/19 13:29 12/14/19 12:28 Assessment/Plan Problem List: (1) Blister of left hand Assessment & Plan: Patient with blood blister on his hand. Unknown etiology but seemingly benign. Will monitor closely. Will not pop blister at this time is no signs of active infection. Normal compressibility demonstrated from the common femoral vein to the popliteal vein. Respiratory phasicity and good augmentation demonstrated on waveform analysis. There is no evidence of thrombosis. IMPRESSION: No evidence of deep venous thrombosis within the left lower extremity. ICD Codes: S60.522A - Blister (nonthermal) of left hand, initial encounter SNOMED: 47675172 (2) Gastritis Assessment & Plan: Patient with no tenderness to gastritis. Pain doing of abdominal discomfort with distention and reducible hernia. No nausea or vomiting. Abdominal exam fairly benign does have some discomfort but no tenderness peritonitis. The hernia has a ventral umbilical like that for some time and fluid-filled as long as well as reducible omental or fatty contents. No acute surgical intervention indicated recommended at this time. Will follow with serial abdominal exams. Trend labs. Resuscitate. ICD Codes: K29.70 - Gastritis, unspecified, without bleeding SNOMED: 5681290 (3) ESRD (end stage renal disease) ICD Codes: N18.6 - End stage renal disease SNOMED: 21594732 Terrell Wolf Dec 14, 2019 12:57
[2019-12-14] MEDS: Albuterol/Ipratropium 3ml neb HHN SCH ×2 (12:58→19:04)
[2019-12-14 13:01] LABS: HEMATOCRIT 39.7 % (42.0-52.0); HEMOGLOBIN 13.2 G/DL (14.2-18.0); MEAN CORPUSCULAR VOLUME 98 FL (80-99); PLATELET COUNT 153 K/UL (150-450); RED BLOOD COUNT 4.05 M/UL (4.70-6.10); RED CELL DISTRIBUTION WIDTH 17.7 % (11.6-14.8); WHITE BLOOD COUNT 5.7 K/UL (4.8-10.8)
[2019-12-14] MEDS ORDERED: Phenylephrine 50 MG in D5W 245 ML IV PRN (14:30)
--- NOTE | 2019-12-14 14:50 | NUR ---
received hd via av fistula with thrill and bruit by vijay ozuna/teagan [id number] to 1450 pm,received pt from sukhwinder /kirstie severe hypotension support bp with levophed and alb 25% 100mi with hd bfr 200ml uf [address] peguero endorsed to sukhwinder wilde after hd
--- NOTE | 2019-12-14 14:53 | NUR ---
LACE WEAVER NOTE GRAZYNA was called to meet w/ pt's son John. John informed GRAZYNA that he discussed pt's prognosis w/ over the phone. John wanted to change the code status. GRAZYNA assisted preparing the POLST. John signed the form w/ DNR and selective tx. Charge Nurse and assigned nurse are informed of such change. Signed: 12/14/19 at 1455 by GEORGE GERONIMO <Co-Signature Required>
--- NOTE | 2019-12-14 15:01 | NUR ---
NURSE NOTES: Hemodialysis completed on patient by HD Nurse, 2 Liters out.
--- NOTE | 2019-12-14 15:03 | NUR ---
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 98.0 HR 84 RR 20 B/P 118/37 WBC 2.7 AST 58 BNP>[id number] APTT 49 CXR= NEGATIVE IS: NGT SUBLINGUAL ASA PO ADMITTED TO ICU @ 2230 ICU STATUS DCP PENDING HOSPITAL STAY
--- NOTE | 2019-12-14 16:30 | Consultation ---
DATE OF CONSULTATION: 12/14/2019 NEPHROLOGY CONSULTATION CONSULTING PHYSICIAN: Giovanni Tomas M.D. REFERRING PHYSICIAN: Casey Bryan M.D. REASON FOR CONSULTATION: End-stage renal disease requiring hemodialysis. HISTORY OF PRESENT ILLNESS: This is a 74-year-old male with history of end-stage renal disease, on hemodialysis every Tuesday, and Tuesday. The patient was brought to the emergency room for shortness of breath. He is somewhat confused now and is unable to provide any history. I saw him last time 2 days ago on dialysis and was quite well. He was brought in for shortness of breath. Apparently, there was no fevers. The patient ended up in the ICU because of hypotension and on pressors now. PAST MEDICAL HISTORY: Includes history of hypertension, diabetes mellitus. MEDICATIONS: Reviewed in the EMR. SOCIAL HISTORY: No history of smoking or alcohol abuse. 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 ALLERGIES: No known drug allergy. PHYSICAL EXAMINATION: GENERAL: The patient is an elderly male, in no acute distress, confused. VITAL SIGNS: Blood pressure 118/37, pulse 84, temperature 98.1, respiratory rate is 20. HEENT: [place] conjunctivae. Anicteric sclerae. NECK: Supple. LUNGS: Coarse breath sounds bilaterally. HEART: S1, S2 without murmurs or rubs. ABDOMEN: Soft, nontender. EXTREMITIES: Bilateral pedal edema. LABORATORY FINDINGS: The CBC shows a WBC of 6900, hematocrit is 41.8, hemoglobin is 13.8, platelet is 165,000. The chemistry panel shows a sodium 138, potassium 4.7, chloride 95, BUN is 84, creatinine 9.8. Lactic acid was 2.3. Uric acid 7.6. Calcium is 8.7. Phosphorus 5.8. Albumin is 3. ABG showed a pH of 7.39, pCO2 of 43, pO2 of 82. The blood cultures came back positive for cocci in pairs and chains. ASSESSMENT: This is a 74-year-old male with history of end-stage renal disease on hemodialysis every Tuesday, , Tuesday is admitted for shortness of breath, bacteremia, and septic shock requiring pressors. PLAN: The patient will be dialyzed today. No ultrafiltration is possible with this blood pressure. However, once the patient is off pressures and blood pressure is improved, then we will remove fluid with the next dialysis. Case was discussed with the RN and also with Dr. Bryan. The patient is already on antibiotics and followed by Infectious Disease doctor. Giovanni Tomas M.D. DR: ALLEY JOB#: [id number] CC:
--- NOTE | 2019-12-14 16:30 | Consultation ---
DATE OF CONSULTATION: 12/14/2019 INFECTIOUS DISEASES CONSULTATION CONSULTING PHYSICIAN: Hakeem Monson M.D. REFERRING PHYSICIAN: Casey Bryan M.D. REASON FOR CONSULTATION: Pneumonia. HISTORY OF PRESENTING ILLNESS: This is a 74-year-old gentleman, who came in with increasing chest discomfort, shortness of breath. He did not have any fevers. He has history of renal failure on dialysis. He has had no recent travel or any sick contacts. An Infectious Diseases consultation has been obtained for antibiotics. PAST MEDICAL HISTORY: 1. History of diabetes. 2. History of hypertension. 3. History of renal failure on dialysis. SOCIAL HISTORY: Unable to obtain currently. FAMILY HISTORY: Unknown. REVIEW OF SYSTEMS: Unable to obtain currently. MEDICATIONS: As an inpatient, he is on erythromycin, vancomycin, Zosyn, aspirin, calcium acetate, heparin, morphine, norepinephrine, insulin, nitroglycerin, Tylenol. ALLERGIES: No known drug allergies. PHYSICAL EXAMINATION: VITAL SIGNS: Temperature of 98.6, T-max of 99, pulse of 89, respiratory rate of 18, blood pressure of 108/83, O2 saturation of 100%. HEENT: Pupils equally reactive to light and accommodation. Mouth appears clean without thrush. NECK: Supple. No adenopathy. No JVD. CARDIOVASCULAR: Regular rate and rhythm. No murmurs. LUNGS: Clear to auscultation bilaterally. No crackles. No wheezes. ABDOMEN: Soft, nontender. No organomegaly. EXTREMITIES: No cyanosis, no clubbing. Edema noted bilaterally. LABORATORY AND DIAGNOSTIC DATA: White count 6.9, hemoglobin 13.8, hematocrit 41.8, MCV 99, platelet count 165. Sodium 138, potassium 4.7, chloride 95, bicarb 24, BUN 84, creatinine 9.8, glucose 94, calcium 8.7. AST 43, ALT 43, and alkaline phosphatase 99. Troponin 0.05. Beta-natriuretic peptide . Total protein 6.7, albumin 3. Cholesterol of 120. Chest x-ray is showing mild diffuse interstitial opacities in both lungs. Small left-sided pleural effusion noted. ASSESSMENT: This is a 74-year-old gentleman with history of diabetes, hypertension, renal failure on dialysis, who came in with nonproductive cough, shortness of breath, and chest discomfort, would be concerned regarding pneumonia as a possibility, would consider low risk for COVID-19. 1. Diabetes. 2. Hypertension. 3. Renal failure, on dialysis. PLAN: 1. Continue IV vancomycin, Zosyn, and azithromycin. 2. We will order sputum for Gram stain and culture. 3. We will order for serum Legionella antibody and mycoplasma serology. 4. We will order CT of the chest. 5. We will follow up cultures and adjust antibiotics accordingly. I would like to thank, Dr. Bryan, for this consultation. Hakeem Monson M.D. DR: ALAINA JOB#: [id number] CC: Casey Bryan M.D.; Fax#: [phone]
--- NOTE | 2019-12-14 17:52 | NUR ---
NURSE NOTES: Heparin drip stopped due to patient bleeding, will inform primary MD.
--- NOTE | 2019-12-14 18:22 | NUR ---
NURSE NOTES: Informed Dr. Bryan regarding Hypoglycemic episode of 62 mg/dL. Also informed him regarding patient bleeding and stopping Heparin Drip. New orders received. Will continue to monitor.
--- NOTE | 2019-12-14 18:25 | Cardiac Electrophysiology PN ---
Subjective Subjective [id number] Objective Last 24 Hour Vital Signs Date Time Temp Pulse Resp B/P (MAP) Pulse Ox O2 Delivery O2 Flow Rate FiO2 12/14/19 17:46 104/54 12/14/19 17:00 98 24 91/59 (70) 100 12/14/19 16:32 97 12/14/19 16:30 97 26 94/75 (81) 100 12/14/19 16:21 97 24 103/60 (74) 100 12/14/19 16:15 97 30 79/42 (54) 100 12/14/19 16:00 99.1 96 28 99/64 (76) 100 12/14/19 15:45 93 32 110/73 (85) 100 12/14/19 15:30 90 37 106/51 (69) 100 12/14/19 15:23 98/46 12/14/19 15:00 117/52 12/14/19 15:00 86 32 117/52 (73) 100 12/14/19 14:30 82 31 85/39 (54) 100 12/14/19 14:10 88/50 12/14/19 14:00 86 29 91/65 (74) 100 12/14/19 14:00 91/65 12/14/19 13:10 77/41 12/14/19 13:00 75 28 100 Nasal Cannula 3.0 32 72 28 100 12/14/19 13:00 78 34 81/33 (49) 99 12/14/19 13:00 82/35 12/14/19 12:53 64/33 12/14/19 12:52 63/36 12/14/19 12:30 85 32 108/95 (99) 78 12/14/19 12:01 91 12/14/19 12:00 99.5 92 25 94/38 (56) 100 12/14/19 12:00 94/38 12/14/19 12:00 Nasal Cannula 2.0 12/14/19 11:55 92 29 102/36 (58) 100 12/14/19 11:50 92 34 108/59 (75) 100 12/14/19 11:30 95 27 106/47 (66) 100 12/14/19 11:15 93 27 95/48 (64) 93 12/14/19 11:00 88/37 12/14/19 11:00 93 26 88/37 (54) 100 12/14/19 10:45 92 25 115/100 (105) 100 12/14/19 10:30 91 28 59/41 (47) 99 12/14/19 10:01 98.6 12/14/19 10:00 94 25 88/69 (75) 100 12/14/19 10:00 88/69 12/14/19 09:45 92 31 106/48 (67) 93 12/14/19 09:30 93 27 124/110 (115) 99 12/14/19 09:15 92 26 82/64 (70) 100 12/14/19 09:00 115/93 12/14/19 09:00 94 25 115/93 (100) 96 12/14/19 08:55 89 18 108/83 (91) 100 12/14/19 08:45 87 28 98/37 (57) 100 12/14/19 08:30 88 21 97/38 (57) 93 12/14/19 08:15 89 23 89/50 (63) 100 12/14/19 08:00 98.7 87 30 101/46 (64) 100 12/14/19 08:00 Nasal Cannula 2.0 12/14/19 08:00 89/50 12/14/19 07:53 88 30 152/125 (134) 100 12/14/19 07:51 144/116 12/14/19 07:38 93 12/14/19 07:30 103 30 129/72 (91) 99 12/14/19 07:00 100 28 111/81 (91) 99 12/14/19 06:30 86 27 82/27 (45) 99 12/14/19 06:15 85 21 84/34 (51) 99 12/14/19 06:07 86 21 87/36 (53) 99 12/14/19 06:00 81 22 103/42 (62) 99 12/14/19 05:30 81 22 103/35 (57) 99 12/14/19 05:00 78 17 76/17 (36) 100 12/14/19 04:30 78 22 80/50 (60) 100 12/14/19 04:09 76 15 65/30 (42) 100 12/14/19 04:00 70 3/13/20 04:00 98.6 77 17 66/49 (55) 100 12/14/19 03:40 82 18 86/40 (55) 100 12/14/19 01:55 77 17 80/33 (49) 100 12/14/19 00:00 Nasal Cannula 2.0 12/14/19 00:00 73 12/13/19 23:30 99.0 77 17 80/45 (57) 100 12/13/19 22:53 59 20 99 Nasal Cannula 3.0 32 63 20 96 12/13/19 22:34 98.1 81 20 95/39 84 Room Air 12/13/19 20:12 95/39 12/13/19 19:35 98.1 81 20 118/37 84 Room Air 12/13/19 19:35 84 20 Room Air 12/13/19 19:22 98.1 84 20 118/37 (64) 84 Room Air Intake and Output 12/13/19 12/14/19 19:00 07:00 Intake Total 350 ml Output Total 0 ml Balance 350 ml Intake Oral 100 ml IV Total 250 ml Output Urine Total 0 ml # Voids 60 Laboratory Tests Test 12/13/19 19:36 12/13/19 19:50 12/13/19 21:39 12/14/19 06:54 Arterial Blood pH 7.398 (7.350-7.450) Arterial Blood Partial Pressure CO2 43.0 mmHg (35.0-45.0) Arterial Blood Partial Pressure O2 81.6 mmHg (75.0-100.0) Arterial Blood HCO3 25.9 mmol/L (22.0-26.0) Arterial Blood Oxygen Saturation 95.3 % (95-100) Arterial Blood Base Excess 0.9 (-2-2) Wilson Test Positive White Blood Count 2.7 K/UL (4.8-10.8) L 6.9 K/UL (4.8-10.8) # Red Blood Count 3.60 M/UL (4.70-6.10) L 4.21 M/UL (4.70-6.10) L Hemoglobin 11.5 G/DL (14.2-18.0) L 13.8 G/DL (14.2-18.0) L Hematocrit 36.8 % (42.0-52.0) L 41.8 % (42.0-52.0) L Mean Corpuscular Volume 102 FL (80-99) H 99 FL (80-99) Mean Corpuscular Hemoglobin 32.0 PG (27.0-31.0) H 32.9 PG (27.0-31.0) H Mean Corpuscular Hemoglobin Concent 31.4 G/DL (32.0-36.0) L 33.1 G/DL (32.0-36.0) Red Cell Distribution Width 19.1 % (11.6-14.8) H 17.8 % (11.6-14.8) H Platelet Count 178 K/UL (150-450) 165 K/UL (150-450) Mean Platelet Volume 7.0 FL (6.5-10.1) 6.0 FL (6.5-10.1) L Neutrophils (%) (Auto) % (45.0-75.0) % (45.0-75.0) Lymphocytes (%) (Auto) % (20.0-45.0) % (20.0-45.0) Monocytes (%) (Auto) % (1.0-10.0) % (1.0-10.0) Eosinophils (%) (Auto) % (0.0-3.0) % (0.0-3.0) Basophils (%) (Auto) % (0.0-2.0) % (0.0-2.0) Differential Total Cells Counted 100 100 Neutrophils % (Manual) 74 % (45-75) 90 % (45-75) H Lymphocytes % (Manual) 16 % (20-45) L 9 % (20-45) L Monocytes % (Manual) 3 % (1-10) 1 % (1-10) Eosinophils % (Manual) 0 % (0-3) 0 % (0-3) Basophils % (Manual) 0 % (0-2) 0 % (0-2) Band Neutrophils 7 % (0-8) 0 % (0-8) Platelet Estimate Adequate Adequate Platelet Morphology Normal Normal Hypochromasia 1+ Anisocytosis 1+ 1+ Sodium Level 139 MMOL/L (136-145) 138 MMOL/L (136-145) Potassium Level 4.7 MMOL/L (3.5-5.1) 4.7 MMOL/L (3.5-5.1) Chloride Level 97 MMOL/L (98-107) L 95 MMOL/L (98-107) L Carbon Dioxide Level 27 MMOL/L (21-32) 24 MMOL/L (21-32) Anion Gap 15 mmol/L (5-15) 19 mmol/L (5-15) H Blood Urea Nitrogen 78 mg/dL (7-18) H 84 mg/dL (7-18) H Creatinine 8.9 MG/DL (0.55-1.30) H 9.8 MG/DL (0.55-1.30) H Estimat Glomerular Filtration Rate 5.8 mL/min (>60) 5.2 mL/min (>60) Glucose Level 95 MG/DL (74-106) 94 MG/DL (74-106) Lactic Acid Level 2.70 mmol/L (0.4-2.0) H 2.30 mmol/L (0.66-2.22) H Calcium Level 9.1 MG/DL (8.5-10.1) 8.7 MG/DL (8.5-10.1) Phosphorus Level 5.7 MG/DL (2.5-4.9) H 5.8 MG/DL (2.5-4.9) H Magnesium Level 2.4 MG/DL (1.8-2.4) 2.2 MG/DL (1.8-2.4) Total Bilirubin 0.5 MG/DL (0.2-1.0) 0.7 MG/DL (0.2-1.0) Aspartate Amino Transf (AST/SGOT) 58 U/L (15-37) H 43 U/L (15-37) H Alanine Aminotransferase (ALT/SGPT) 38 U/L (12-78) 43 U/L (12-78) Alkaline Phosphatase 106 U/L (46-116) 99 U/L (46-116) Total Creatine Kinase 88 U/L (26-308) Creatine Kinase MB 2.2 NG/ML (0.0-3.6) Creatine Kinase MB Relative Index 2.5 Troponin I 0.000 ng/mL (0.000-0.056) 0.057 ng/mL (0.000-0.056) Pro-B-Type Natriuretic Peptide > 00296 pg/mL (0-125) H > 26348 pg/mL (0-125) H Total Protein 6.9 G/DL (6.4-8.2) 6.7 G/DL (6.4-8.2) Albumin 3.2 G/DL (3.4-5.0) L 3.0 G/DL (3.4-5.0) L Globulin 3.8 g/dL 3.7 g/dL Albumin/Globulin Ratio 0.8 (1.0-2.7) L 0.8 (1.0-2.7) L Hemoglobin A1c 6.1 % (4.3-6.0) H Uric Acid 7.6 MG/DL (2.6-7.2) H Iron Level 11 ug/dL (50-175) L Total Iron Binding Capacity 173 ug/dL (250-450) L Percent Iron Saturation 6 % (15-50) L Unsaturated Iron Binding 162 ug/dL (112-346) Ferritin 1607 NG/ML (8-388) H Gamma Glutamyl Transpeptidase 75 U/L (5-85) C-Reactive Protein, Quantitative 18.4 mg/dL (0.00-0.90) H Triglycerides Level 124 MG/DL (30-150) Cholesterol Level 120 MG/DL (< 200) LDL Cholesterol 41 mg/dL (<100) HDL Cholesterol 53 MG/DL (40-60) Cholesterol/HDL Ratio 2.3 (3.3-4.4) L Vitamin B12 Level 582 PG/ML (193-986) Folate 19.9 NG/ML (8.6-58.9) Thyroid Stimulating Hormone (TSH) 5.979 uiU/mL (0.358-3.740) Test 12/14/19 12:30 12/14/19 16:50 White Blood Count 5.7 K/UL (4.8-10.8) Red Blood Count 4.05 M/UL (4.70-6.10) L Hemoglobin 13.2 G/DL (14.2-18.0) L Hematocrit 39.7 % (42.0-52.0) L Mean Corpuscular Volume 98 FL (80-99) Mean Corpuscular Hemoglobin 32.6 PG (27.0-31.0) H Mean Corpuscular Hemoglobin Concent 33.2 G/DL (32.0-36.0) Red Cell Distribution Width 17.7 % (11.6-14.8) H Platelet Count 153 K/UL (150-450) Mean Platelet Volume 7.0 FL (6.5-10.1) Neutrophils (%) (Auto) % (45.0-75.0) Lymphocytes (%) (Auto) % (20.0-45.0) Monocytes (%) (Auto) % (1.0-10.0) Eosinophils (%) (Auto) % (0.0-3.0) Basophils (%) (Auto) % (0.0-2.0) Differential Total Cells Counted 100 Neutrophils % (Manual) 81 % (45-75) H Lymphocytes % (Manual) 3 % (20-45) L Monocytes % (Manual) 2 % (1-10) Eosinophils % (Manual) 0 % (0-3) Basophils % (Manual) 0 % (0-2) Band Neutrophils 14 % (0-8) H Platelet Estimate Adequate Platelet Morphology Normal Hypochromasia 1+ Anisocytosis 1+ Activated Partial Thromboplast Time 49 SEC (23-33) H Pending Hepatitis B Surface Antigen Pending Legionella pneumophila Group 1 Ab Pending Legionella pneumophilia IgM Group 1 Pending Mycoplasma pneumoniae IgG Antibody Pending Mycoplasma pneumoniae IgM Ab Titer Pending Microbiology Date/Time Source Procedure Growth Status 12/13/19 19:59 Blood Blood Culture - Preliminary Resulted 12/13/19 10:50 Blood Blood Culture - Preliminary Resulted 12/13/19 19:59 Nasal Nares - Final Complete 12/13/19 19:59 Nasal Nares - Final Complete Jose Luis Michel MD Dec 14, 2019 18:25
--- NOTE | 2019-12-14 18:51 | Diagnostic Imaging Report ---
Indication: Right leg pain Technique: Grayscale and duplex images of the right lower extremity veins Comparison: None Findings: On the right, grayscale and duplex images demonstrate no evidence of intraluminal thrombus. Normal phasic Doppler waveforms, demonstrating normal augmentation response and no evidence of valvular insufficiency. Greater saphenous vein(s) and tibial veins are patent. Normal compressibility. Impression: Negative for evidence of lower extremity deep venous thrombosis on the right
--- NOTE | 2019-12-14 19:08 | Diagnostic Imaging Report ---
Indication: Right leg pain Technique: Grayscale and duplex images of the right lower extremity arteries Comparison: none Findings: Exam is limited, as per technologist patient unable to hold still On the right, grayscale and duplex images demonstrate biphasic or triphasic Doppler waveforms with sharp systolic peaks at the common femoral, superficial femoral, profunda femoral, and popliteal artery levels. The posterior tibial artery is not well visualized, but waveforms appear biphasic with sharp systolic peaks. The anterior tibial artery and dorsalis pedis artery waveforms appear severely dampened. Waveforms are poorly defined, probably monophasic but could be weakly biphasic. Impression: No evidence of suprageniculate right lower extremity vascular insufficiency. Findings do suggest significant disease of the anterior tibial artery, but there appears to be good in-line flow to the foot via patent posterior tibial artery
--- NOTE | 2019-12-14 19:20 | NUR ---
HAND-OFF: Report given to Dre BREWER.
--- NOTE | 2019-12-14 19:26 | NUR ---
NURSE NOTES: Paged Dr. Lopez regarding Arterial Ultrasound. Awaiting for call back.
[2019-12-14] MEDS: D5NS 1,000 ML IV SCH (19:45)
--- NOTE | 2019-12-14 20:00 | NUR ---
NURSE NOTES: Dr. Lopez called back and updated him on arterial ultrasound of the right lower extremity. Restarted Heparin gtt at 10units/kg/hr. Patient remains at 30mcg/min of leophed, BP is 97/39, SpO2n is 100% RR 37. HR is 104 ST. Temperature noted to be 101.9F. Cooling measures given, and Tylenol 350mg via suppository given.
[2019-12-14] MEDS: Atorvastatin 20mg tab ORAL SCH (21:00)
[2019-12-14] MEDS ORDERED: Atorvastatin 20mg tab ORAL SCH (21:00)
--- NOTE | 2019-12-14 21:15 | Consultation ---
DATE OF CONSULTATION: 12/14/2019 CARDIOLOGY CONSULTATION CONSULTING PHYSICIAN: Jose Luis Michel M.D. REFERRING PHYSICIAN: Casey Bryan M.D. REASON FOR CONSULTATION: Hypotension, chest pain, and elevated troponin. HISTORY OF PRESENT ILLNESS: The patient is a 74-year-old gentleman with history of hypertension, diabetes, and end-stage renal disease, on hemodialysis, who presented to emergency room with chest discomfort and shortness of breath. The patient did not have any recent travel or any sick contacts. The patient also had mildly elevated troponin and Cardiology consultation was obtained for further evaluation. His initial troponin was negative. Second troponin was 0.057. His BNP is more than 35,000. At the time of my evaluation, the patient is poorly responsive in intensive care unit and maxed-out on Levophed. The patient already had hemodialysis today. REVIEW OF SYSTEMS: Cannot be obtained. PAST MEDICAL HISTORY: As mentioned above. FAMILY HISTORY: Noncontributory. SOCIAL HISTORY: [place] a [place] [place]. Does not smoke or drink alcohol. PHYSICAL EXAMINATION: VITAL SIGNS: Blood pressure 104/54, pulse 98, and respirations 20. HEAD AND NECK: Shows no JVD. LUNGS: Coarse rhonchi. CARDIOVASCULAR: Shows regular S1 and S2. Tachycardic. ABDOMEN: Obese. EXTREMITIES: He has 2+ pitting edema. LABORATORY AND DIAGNOSTIC DATA: His labs showed sodium 138, potassium 4.7, BUN of 84, creatinine 9.8, and glucose of 94. Troponin initially was negative and subsequent one 0.057. BNP 35,000. His white count is 5.7, hemoglobin 13.2, hematocrit 39.5, and platelet count of 153,000. ASSESSMENT AND PLAN: 1. Elevated troponin. Level is very low and nonspecific, especially in view of the patient being on dialysis. I will discontinue heparin drip. He obviously cannot get any beta-jorge a in view of being hypotensive and being in septic shock. His echocardiogram showed normal ejection fraction of 60% to 65%. EKG does not show any significant ST or T-wave abnormality. 2. Septic shock. The patient is on Levophed that maxed-out. He is on broad-spectrum IV antibiotic. Etiology is unclear at this time. 3. Hyperlipidemia, on Lipitor. 4. End-stage renal disease, on hemodialysis, per Dr. Tomas. It is of note as an outpatient, for blood pressure, the patient was on amlodipine 10 mg and metoprolol 100 mg b.i.d., but currently he is off both. 5. Diabetes. Thank you very much for allowing me to participate in the care of this patient. Please do not hesitate to contact for any questions regarding my evaluation. Jose Luis Michel M.D. DR: THA JOB#: [id number] CC:
--- NOTE | 2019-12-14 22:00 | NUR ---
NURSE NOTES: PATIENT REPOSITIONED AND ORAL CARE GIVEN. SLOWLY TAPERING LEVOPHED DOWN. PATIENT REMAINS LETHARGIC BUT MORE RESPONSIVE THAN EARLIER. TEMPERATURE IS 100.9, COOLING MEASURES ONGOING.
--- NOTE | 2019-12-14 23:42 | General Progress Note ---
Progress Note Progress Note Patient seen and examined In icu in shock on Levophed Severe left calf cellulitis with fasciitis and blisters Calcific multilevel arterial occlusive PAD 2+ femorals absent pop and pedal pulses with intact bilateral foot dopplers strong-marked on skin Left toe ulcer Right calf wound ulcer DM Obesity Rec Broad spectrum abx per ID CT angio legs once more stable Podiatry and General surgery f/u eval left calf toe wounds DVT precautions d/w icu nurse Tejas Lopez MD Dec 14, 2019 23:42
[2019-12-15] VITALS (69 sets, daily range): BP systolic 43–136; BP diastolic 22–95
--- NOTE | 2019-12-15 | NUR ---
NURSE NOTES: DR. 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 ORDERS RECEIVED FOR DRESSING INSTRUCTIONS. PATIENT REPOSITIONED AND PLACED BIPAP ON FOR THE NIGHT. SLOWLY TAPERING PRESSORS DOWN.
[2019-12-15] MEDS: Albuterol/Ipratropium 3ml neb HHN SCH ×4 (01:00→20:47)
--- NOTE | 2019-12-15 01:00 | History and Physical Report ---
DATE OF ADMISSION: 12/13/2019 HISTORY OF PRESENT ILLNESS: The patient is a pleasant 74-year-old gentleman with history of chronic renal disease, on dialysis, history of diabetes, who was admitted secondary to cough, hypotension, chest discomfort, and dyspnea and was noted to have CHF exacerbation. Apparently, he missed his last dialysis. There is no fevers or chills at home. No recent travel. No ill contacts. No abdominal pain. No nausea or vomiting. The patient initially had no urinary symptoms. PAST MEDICAL HISTORY: Includes a history of chronic kidney disease on hemodialysis, history of diabetes, and history of hypertension. ALLERGIES: None known. MEDICATIONS: Please see reconciled medication list. 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 Does not smoke. Does not drink any alcohol. PHYSICAL EXAMINATION: GENERAL: The patient is seen in the ICU, ill-appearing, in no apparent distress. HEENT: Head is normocephalic and atraumatic. Pupils are equally reactive to light. Extraocular muscles intact. NECK: Supple. No JVP. LUNGS: Clear to auscultation bilaterally. HEART: Regular rate and rhythm. EXTREMITIES: No clubbing. He does have cyanosis of the left lower extremity and feels a little cool and tender. He is able to move his feet. ABDOMEN: Soft. Positive bowel sounds. Nondistended. Nontender. BACK: No CVA tenderness. NEUROLOGIC: He is awake. Moves his extremities. LABORATORY VALUES: Revealed white count of 5.7, hemoglobin 13.2, hematocrit 39.7, and platelet count of 153,000. Sodium is 138, potassium 4.7, BUN of 84, creatinine 9.8. Glycohemoglobin 6.1. Lactic acid was 2.3. Calcium 7.6. Iron level 11, saturation 6, TIBC 173. Troponin 0.057. C-reactive protein 18.4. Natriuretic peptide greater than 35,000. His chest x-ray revealed no acute disease. Repeat chest x-ray revealed suspected mild CHF. ASSESSMENT AND PLAN: The patient is an unfortunate 74-year-old gentleman with history of hypertension, diabetes, and hyperlipidemia, who presents with complaints of cough. No fevers, but still was hypotensive. The patient was initially admitted to the floor; however, he continued to become hypotensive and transferred to the ICU. The patient also developed left lower extremity pain and cyanosis. His vascular surgeon, Dr. Lopez, was called and is aware. Arterial Dopplers and venous Dopplers were ordered stat and per discussion with Dr. Lopez, he was started on heparin GGT. We will assess. For his renal failure, he is dialysis dependent. Dr. Tomas, his sider mechanic, will be seeing him. For his hypotension also, full fever workup initiated including blood cultures. He was empirically started on vancomycin and Zosyn, and I have asked Dr. Monson from Infectious Disease to see him. As far as his cough, chest x-ray does not reveal much, possible some CHF. As far as cough and dyspnea, chest x-ray does not reveal much, possible mild CHF. I did ask also his bowling floor desk clerk, Dr. Finley, to see him as well. The patient should be on DVT and ulcer prophylaxis. Casey Bryan M.D. : Claudia JOB#: [id number] CC:
--- NOTE | 2019-12-15 02:00 | NUR ---
NURSE NOTES: REPOSITIONED AND ORAL CARE GIVEN. PATIENT REMAINS ON BIPAP AND COOLING MEASURES REMAIN IN EFFECT, PRESSORS SLOWLY BEING TAPERED DOWN. NO RESPIRATORY DISTRESS NOTED.
[2019-12-15] MEDS ORDERED: cefTRIAXone 1 GM in D5W 55 ML IVPB SCH (03:00)
[2019-12-15] MEDS: Azithromycin 500 MG in D5W 275 ML IV SCH (03:51)
--- NOTE | 2019-12-15 04:00 | NUR ---
NURSE NOTES: HAD TO INCREASE LEVOPHED TO MAX BLOOD PRESSURE DECREASED SIGNIFICANTLY. PATIENT IS BECOMING MORE AWAKE AND RESPONSIVE ALTHOUGH STILL LETHARGIC/SOMNOLENT AT TIMES. BLOOD DRAWN AND SENT TO LAB. LEFT LEFT DRESSING PERFORMED.
[2019-12-15] MEDS ORDERED: DOPamine 400mg/250ml 250 ML IV SCH (04:45)
[2019-12-15 05:08] LABS: HEMATOCRIT 36.8 % (42.0-52.0); HEMOGLOBIN 12.1 G/DL (14.2-18.0); MEAN CORPUSCULAR VOLUME 99 FL (80-99); PLATELET COUNT 110 K/UL (150-450); RED BLOOD COUNT 3.74 M/UL (4.70-6.10); RED CELL DISTRIBUTION WIDTH 17.1 % (11.6-14.8)
[2019-12-15 05:19] LABS: ANION GAP 24 mmol/L (5-15); BLOOD UREA NITROGEN 60 mg/dL (7-18); CARBON DIOXIDE 14 MMOL/L (21-32); CHLORIDE 93 MMOL/L (98-107); CREATININE 7.6 MG/DL (0.55-1.30); POTASSIUM 4.9 MMOL/L (3.5-5.1); SODIUM 131 MMOL/L (136-145)
--- NOTE | 2019-12-15 05:51 | NUR ---
NURSE NOTES: PTT RESULT WAS 81, NEXT PTT TO BE DONE 12/15 AT 0400.
[2019-12-15] MEDS: Heparin 25,000u/D5W 500ml 500 ML IV SCH (06:08)
[2019-12-15] MEDS: NovoLOG Insulin Flexpen SUBQ SCH ×4 (06:11→21:16)
[2019-12-15] MEDS: D5NS 1,000 ML IV SCH ×2 (06:13→17:58)
[2019-12-15] MEDS: Piperacillin/Tazobactam 2.25 GM in D5W 55 ML IVPB SCH ×3 (06:13→22:15)
[2019-12-15] MEDS: GlipiZIDE 5mg tab ORAL SCH (06:30)
--- NOTE | 2019-12-15 06:43 | NUR ---
NURSE NOTES: NON-ADMIT GLUCOTROL THIS MORNING PATIENT NOT FULLY ORIENTED TO SWALLOW PO MEDS.
[2019-12-15] MEDS ORDERED: Vancomycin 1gm/D5W 275ml IVPB ONE ×2 (08:00)
--- NOTE | 2019-12-15 08:00 | NUR ---
NURSE NOTES: Received change of shift report from Dre BREWER. Pt is awake, alert, oriented x2, English speaking, able to understand basic [place]. Pt is currently on 2L NC at 96% O2Sat. NSR with BBB on leaf conditioner while pt is on Levophed at 28mcg/min, Heparin drip at 10units/kg/hr, and D5 NS infusing at 100ml/hour. Pt also has left UA shunt for dialysis. Temp 97.7T axillary. Pt is anuric per report. Abdomen is large, round, distended, mildly hard to touch, with umbilical hernia. Skin has left lower extremity PAD, arterial open wound, currently covered with dressing, dry/intact. Sacral redness, and multiple scatter small wounds on extremities, covered with optifoam dressing. Pt is on pressure releasing mattress. Bed is locked, HOB at 30, three side rails up, and call light is placed within easy reach. Will continue to monitor pt and follow plan of care.
[2019-12-15] MEDS: Aspirin Baby 81mg ORAL SCH (09:13)
[2019-12-15] MEDS: Calcium Acetate 667mg Tab ORAL SCH (09:13)
[2019-12-15] MEDS ORDERED: Tubing IV Secondary IV ONE (09:55)
[2019-12-15] MEDS ORDERED: NS 275ml ONE (09:55)
[2019-12-15] MEDS ORDERED: D5W 275ml ONE (09:55)
--- NOTE | 2019-12-15 10:00 | NUR ---
NURSE NOTES: Pt was seen by Dr Bravo, LLE dressing was opened, and area assessed and treated by MD. Wound dressing was changed per MD instructions, cleansed with saline, covered with xeroform, then alginate, abd pads, and kerlix gauze. Levophed drip has been increased to 30mc/min. AM meds were administered. Pt was repositioned.
[2019-12-15] MEDS: Phenylephrine 50 MG in D5W 245 ML IV PRN ×3 (11:00→20:37)
--- NOTE | 2019-12-15 12:00 | NUR ---
NURSE NOTES: Hank drip was started, at 180mcg/min, Levophed continues to infuse at 30mcg/min. Pt was seen by Dr Tomas. spoke with family, and code status was changed to Full Code per Dr Tomas's order.
--- NOTE | 2019-12-15 12:58 | Surgery Progress Note ---
Surgery Progress Note Subjective Additional Comments ill appearing in ICU responsive and states well without complaints vascular input noted on levo and carlitos now leukocytosis worsening leukocytosis lactic acidosis troponin Objective Last 24 Hour Vital Signs Date Time Temp Pulse Resp B/P (MAP) Pulse Ox O2 Delivery O2 Flow Rate FiO2 12/15/19 12:30 91 104/41 (62) 100 12/15/19 12:00 98.0 93 106/47 (66) 100 12/15/19 11:30 92 93/50 (64) 100 12/15/19 11:26 85/45 12/15/19 11:00 91 89/41 (57) 100 12/15/19 10:45 85 35 100 30 12/15/19 10:30 94 81/43 (56) 100 12/15/19 10:00 99 85/45 (58) 100 12/15/19 09:30 101 109/41 (63) 100 12/15/19 09:09 103 35 114/57 (76) 89 12/15/19 09:00 100 28 86/43 (57) 100 12/15/19 08:30 101 26 90/42 (58) 100 12/15/19 08:00 92 12/15/19 08:00 97.7 100 26 96/44 (61) 100 12/15/19 07:33 Nasal Cannula 3.0 32 12/15/19 07:33 101 30 100 Nasal Cannula 3.0 32 101 26 100 12/15/19 07:30 102 30 96/42 (60) 100 12/15/19 07:00 103 26 106/45 (65) 100 12/15/19 06:30 105 28 85/66 (72) 100 12/15/19 06:08 93/46 12/15/19 06:00 104 23 93/46 (62) 100 12/15/19 06:00 93/46 12/15/19 05:30 105 27 93/50 (64) 100 12/15/19 05:00 105 29 83/45 (58) 100 12/15/19 05:00 72/25 12/15/19 04:48 108 24 88/55 (66) 100 12/15/19 04:45 105 20 43/22 (29) 100 12/15/19 04:41 106 25 83/47 (59) 100 3/14/20 04:40 106 24 63/33 (43) 100 12/15/19 04:30 103 24 73/40 (51) 100 12/15/19 04:15 102 21 99/77 (84) 100 12/15/19 04:00 99.5 105 23 93/53 (66) 100 12/15/19 04:00 99/77 12/15/19 04:00 103 12/15/19 03:51 92/37 12/15/19 03:45 103 23 95/39 (57) 100 12/15/19 03:30 103 22 101/45 (63) 100 12/15/19 03:01 104 26 100 30 12/15/19 03:00 103 24 92/37 (55) 100 12/15/19 03:00 91/45 12/15/19 02:45 103 22 89/41 (57) 100 12/15/19 02:30 104 24 93/41 (58) 100 12/15/19 02:15 102 23 83/54 (64) 100 12/15/19 02:00 103 24 85/45 (58) 100 12/15/19 02:00 83/54 12/15/19 01:45 104 23 103/46 (65) 100 12/15/19 01:30 104 24 101/47 (65) 100 12/15/19 01:15 103 25 110/45 (66) 100 12/15/19 01:00 102 25 94/51 (65) 100 12/15/19 01:00 110/45 12/15/19 00:48 96/48 12/15/19 00:45 110 25 89/48 (62) 100 12/15/19 00:30 103/49 12/15/19 00:30 105 24 94/45 (61) 100 12/15/19 00:18 105 28 100 30 12/15/19 00:00 100.5 106 28 96/48 (64) 100 12/15/19 00:00 105 12/15/19 00:00 110/45 12/14/19 23:45 106 30 102/41 (61) 100 12/14/19 23:30 107 30 110/47 (68) 100 12/14/19 23:15 110 32 128/52 (77) 100 12/14/19 23:00 128/52 12/14/19 23:00 105 33 111/49 (69) 100 12/14/19 22:45 105 30 102/45 (64) 100 12/14/19 22:30 105 32 98/44 (62) 100 12/14/19 22:15 108 35 105/45 (65) 100 12/14/19 22:13 109 26 97/44 (61) 100 12/14/19 22:11 92/43 12/14/19 22:00 97/44 12/14/19 22:00 104 38 96/45 (62) 100 12/14/19 21:45 105 37 97/41 (59) 100 12/14/19 21:30 105 37 95/43 (60) 100 12/14/19 21:15 106 37 92/43 (59) 100 12/14/19 21:00 92/43 12/14/19 21:00 105 39 90/42 (58) 100 12/14/19 20:53 100.6 12/14/19 20:45 104 35 88/41 (57) 100 12/14/19 20:30 103 40 87/39 (55) 100 12/14/19 20:15 103 30 97/39 (58) 100 12/14/19 20:00 101.9 104 39 100/41 (60) 100 12/14/19 20:00 102 12/14/19 20:00 97/39 12/14/19 19:49 99/44 12/14/19 19:45 102/39 12/14/19 19:15 100 39 99/44 (62) 100 12/14/19 19:04 Nasal Cannula 3.0 32 12/14/19 19:04 97 29 100 Nasal Cannula 3.0 32 99 32 99 12/14/19 19:00 99 33 103/45 (64) 100 12/14/19 18:45 100 36 109/42 (64) 100 12/14/19 18:30 100 39 116/42 (66) 100 12/14/19 18:00 99 24 115/43 (67) 100 12/14/19 18:00 122/84 12/14/19 17:46 104/54 12/14/19 17:30 98 38 104/54 (71) 100 12/14/19 17:00 125/56 3/13/20 17:00 98 24 91/59 (70) 100 12/14/19 16:32 97 12/14/19 16:30 97 26 94/75 (81) 100 12/14/19 16:21 97 24 103/60 (74) 100 12/14/19 16:15 97 30 79/42 (54) 100 12/14/19 16:00 99.1 96 28 99/64 (76) 100 12/14/19 16:00 123/62 12/14/19 15:45 93 32 110/73 (85) 100 12/14/19 15:30 90 37 106/51 (69) 100 12/14/19 15:23 98/46 12/14/19 15:00 117/52 12/14/19 15:00 86 32 117/52 (73) 100 12/14/19 14:45 84 34 99/44 (62) 99 12/14/19 14:30 82 31 85/39 (54) 100 12/14/19 14:15 86 27 88/50 (63) 100 12/14/19 14:10 88/50 12/14/19 14:00 86 29 91/65 (74) 100 12/14/19 14:00 91/65 12/14/19 13:45 84 26 109/25 (53) 100 12/14/19 13:30 82 32 92/47 (62) 100 12/14/19 13:15 71 30 79/33 (48) 98 12/14/19 13:10 77/41 12/14/19 13:00 75 28 100 Nasal Cannula 3.0 32 72 28 100 12/14/19 13:00 78 34 81/33 (49) 99 12/14/19 13:00 82/35 I&O Intake and Output 12/14/19 12/15/19 19:00 07:00 Intake Total 2976.799 ml 2681.774 ml Output Total 2000 ml 0 ml Balance 976.799 ml 2681.774 ml Intake Oral 120 ml IV Total 856.799 ml 2681.774 ml Hemodialysis 2000 ml Output Urine Total 0 ml 0 ml Hemodialysis UF 2000 ml Dressing: saturated Wound: other Drains: other Cardiovascular: RSR Respiratory: decreased breath sounds Abdomen: soft, present bowel sounds, non-distended Extremities: edema - cellulitis. soft, non tender, blister noted , no tenderness, no cyanosis, other Laboratory Tests Test 12/14/19 16:50 12/15/19 04:30 12/15/19 12:30 Activated Partial Thromboplast Time 63 SEC (23-33) H 81 SEC (23-33) H White Blood Count 15.0 K/UL (4.8-10.8) #H Red Blood Count 3.74 M/UL (4.70-6.10) L Hemoglobin 12.1 G/DL (14.2-18.0) L Hematocrit 36.8 % (42.0-52.0) L Mean Corpuscular Volume 99 FL (80-99) Mean Corpuscular Hemoglobin 32.3 PG (27.0-31.0) H Mean Corpuscular Hemoglobin Concent 32.8 G/DL (32.0-36.0) Red Cell Distribution Width 17.1 % (11.6-14.8) H Platelet Count 110 K/UL (150-450) L Mean Platelet Volume 6.8 FL (6.5-10.1) Neutrophils (%) (Auto) % (45.0-75.0) Lymphocytes (%) (Auto) % (20.0-45.0) Monocytes (%) (Auto) % (1.0-10.0) Eosinophils (%) (Auto) % (0.0-3.0) Basophils (%) (Auto) % (0.0-2.0) Differential Total Cells Counted 100 Neutrophils % (Manual) 69 % (45-75) Lymphocytes % (Manual) 2 % (20-45) L Monocytes % (Manual) 2 % (1-10) Eosinophils % (Manual) 0 % (0-3) Basophils % (Manual) 0 % (0-2) Band Neutrophils 27 % (0-8) H Platelet Estimate Decreased L Platelet Morphology Normal Anisocytosis 1+ Sodium Level 131 MMOL/L (136-145) L Potassium Level 4.9 MMOL/L (3.5-5.1) Chloride Level 93 MMOL/L (98-107) L Carbon Dioxide Level 14 MMOL/L (21-32) L Anion Gap 24 mmol/L (5-15) H Blood Urea Nitrogen 60 mg/dL (7-18) H Creatinine 7.6 MG/DL (0.55-1.30) H Estimat Glomerular Filtration Rate 7.0 mL/min (>60) Glucose Level 302 MG/DL (74-106) #H Lactic Acid Level 5.50 mmol/L (0.4-2.0) H Pending Calcium Level 8.0 MG/DL (8.5-10.1) L Troponin I 0.588 ng/mL (0.000-0.056) Random Vancomycin Level 13.9 ug/mL Plan Problems: (1) Blister of left hand Assessment & Plan: Patient with blood blister on his hand. Unknown etiology but seemingly benign. Will monitor closely. Will not pop blister at this time is no signs of active infection. Normal compressibility demonstrated from the common femoral vein to the popliteal vein. Respiratory phasicity and good augmentation demonstrated on waveform analysis. There is no evidence of thrombosis. IMPRESSION: No evidence of deep venous thrombosis within the left lower extremity. (2) Gastritis Assessment & Plan: Patient with no tenderness to gastritis. Pain doing of abdominal discomfort with distention and reducible hernia. No nausea or vomiting. Abdominal exam fairly benign does have some discomfort but no tenderness peritonitis. The hernia has a ventral umbilical like that for some time and fluid-filled as long as well as reducible omental or fatty contents. No acute surgical intervention indicated recommended at this time. Will follow with serial abdominal exams. Trend labs. Resuscitate. (3) ESRD (end stage renal disease) (4) Cellulitis of left leg Assessment & Plan: left calf cellulitis and blisters; blisterectomy by vascular Calcific multilevel arterial occlusive PAD 2+ femorals absent pop and pedal pulses with intact bilateral foot dopplers strong-marked on skin by vascular Left toe ulcer and Right calf wound ulcer no DVT on duplex arterial duplex noted as well abx per ID CT angio legs once more stable wash leg daily with NS, apply xerofoam, abd, wrap with kerlix daily and prn saturation Terrell Wolf Dec 15, 2019 12:58
--- NOTE | 2019-12-15 14:00 | NUR ---
NURSE NOTES: Pt was seen by Dr Finley. Per order, ABGs were drawn and results reported to MD. Order was received to increase Bipap to 15/5 then draw ABGs post 2 hours after setting-change. RT notified. Pt was also seen by Dr Michel. MD was ECG results that were done this morning, which resulted in ST with Right BBB. Per , ok to add third pressor, if pt does not respond to 2 pressors.
--- NOTE | 2019-12-15 14:01 | Pulmonolgy Critical Care Note ---
Critical Care - Asmt/Plan Problems: (1) Sepsis (2) Cellulitis of left leg (3) CHF (congestive heart failure) (4) ESRD (end stage renal disease) (5) Lactic acid acidosis (6) NSTEMI (non-ST elevated myocardial infarction) (7) Chest pain (8) PAD (peripheral artery disease) Assessment/Plan: Continue BiPAP 12/5, attempt to wean off as able Titrate O2 HHN's Titrate pressors to keep MAP > 60 Abx (Vanco/Zosyn) per ID, F/U CX's Monitor volumes, mIVF, HD per renal Continue IVUF DNAR/DNI Family awaiting grout worker for last rites CCT 40 Critical Care - Objective Last 24 Hour Vital Signs Date Time Temp Pulse Resp B/P (MAP) Pulse Ox O2 Delivery O2 Flow Rate FiO2 12/15/19 13:32 104/41 12/15/19 13:28 97 26 100 Bi-Pap 30 95 25 100 30 12/15/19 12:30 91 104/41 (62) 100 12/15/19 12:00 98.0 93 106/47 (66) 100 12/15/19 12:00 90 12/15/19 11:30 92 93/50 (64) 100 12/15/19 11:26 85/45 12/15/19 11:00 91 89/41 (57) 100 12/15/19 10:45 85 35 100 30 12/15/19 10:30 94 81/43 (56) 100 12/15/19 10:00 99 85/45 (58) 100 12/15/19 09:30 101 109/41 (63) 100 12/15/19 09:09 103 35 114/57 (76) 89 12/15/19 09:00 100 28 86/43 (57) 100 12/15/19 08:30 101 26 90/42 (58) 100 12/15/19 08:00 92 12/15/19 08:00 97.7 100 26 96/44 (61) 100 12/15/19 07:33 Nasal Cannula 3.0 32 12/15/19 07:33 101 30 100 Nasal Cannula 3.0 32 101 26 100 12/15/19 07:30 102 30 96/42 (60) 100 12/15/19 07:00 103 26 106/45 (65) 100 12/15/19 06:30 105 28 85/66 (72) 100 12/15/19 06:08 93/46 12/15/19 06:00 104 23 93/46 (62) 100 12/15/19 06:00 93/46 12/15/19 05:30 105 27 93/50 (64) 100 12/15/19 05:00 105 29 83/45 (58) 100 12/15/19 05:00 72/25 12/15/19 04:48 108 24 88/55 (66) 100 12/15/19 04:45 105 20 43/22 (29) 100 12/15/19 04:41 106 25 83/47 (59) 100 12/15/19 04:40 106 24 63/33 (43) 100 12/15/19 04:30 103 24 73/40 (51) 100 12/15/19 04:15 102 21 99/77 (84) 100 12/15/19 04:00 99.5 105 23 93/53 (66) 100 12/15/19 04:00 99/77 12/15/19 04:00 103 12/15/19 03:51 92/37 12/15/19 03:45 103 23 95/39 (57) 100 12/15/19 03:30 103 22 101/45 (63) 100 12/15/19 03:01 104 26 100 30 12/15/19 03:00 103 24 92/37 (55) 100 12/15/19 03:00 91/45 12/15/19 02:45 103 22 89/41 (57) 100 12/15/19 02:30 104 24 93/41 (58) 100 12/15/19 02:15 102 23 83/54 (64) 100 12/15/19 02:00 103 24 85/45 (58) 100 12/15/19 02:00 83/54 12/15/19 01:45 104 23 103/46 (65) 100 12/15/19 01:30 104 24 101/47 (65) 100 12/15/19 01:15 103 25 110/45 (66) 100 12/15/19 01:00 102 25 94/51 (65) 100 12/15/19 01:00 110/45 12/15/19 00:48 96/48 3/14/20 00:45 110 25 89/48 (62) 100 12/15/19 00:30 103/49 12/15/19 00:30 105 24 94/45 (61) 100 12/15/19 00:18 105 28 100 30 12/15/19 00:00 100.5 106 28 96/48 (64) 100 12/15/19 00:00 105 12/15/19 00:00 110/45 12/14/19 23:45 106 30 102/41 (61) 100 12/14/19 23:30 107 30 110/47 (68) 100 12/14/19 23:15 110 32 128/52 (77) 100 12/14/19 23:00 128/52 12/14/19 23:00 105 33 111/49 (69) 100 12/14/19 22:45 105 30 102/45 (64) 100 12/14/19 22:30 105 32 98/44 (62) 100 12/14/19 22:15 108 35 105/45 (65) 100 12/14/19 22:13 109 26 97/44 (61) 100 12/14/19 22:11 92/43 12/14/19 22:00 97/44 12/14/19 22:00 104 38 96/45 (62) 100 12/14/19 21:45 105 37 97/41 (59) 100 12/14/19 21:30 105 37 95/43 (60) 100 12/14/19 21:15 106 37 92/43 (59) 100 12/14/19 21:00 92/43 12/14/19 21:00 105 39 90/42 (58) 100 12/14/19 20:53 100.6 12/14/19 20:45 104 35 88/41 (57) 100 12/14/19 20:30 103 40 87/39 (55) 100 12/14/19 20:15 103 30 97/39 (58) 100 12/14/19 20:00 101.9 104 39 100/41 (60) 100 12/14/19 20:00 102 12/14/19 20:00 97/39 12/14/19 19:49 99/44 12/14/19 19:45 102/39 12/14/19 19:15 100 39 99/44 (62) 100 12/14/19 19:04 Nasal Cannula 3.0 32 12/14/19 19:04 97 29 100 Nasal Cannula 3.0 32 99 32 99 12/14/19 19:00 99 33 103/45 (64) 100 12/14/19 18:45 100 36 109/42 (64) 100 12/14/19 18:30 100 39 116/42 (66) 100 12/14/19 18:00 99 24 115/43 (67) 100 12/14/19 18:00 122/84 12/14/19 17:46 104/54 12/14/19 17:30 98 38 104/54 (71) 100 12/14/19 17:00 125/56 12/14/19 17:00 98 24 91/59 (70) 100 12/14/19 16:32 97 12/14/19 16:30 97 26 94/75 (81) 100 12/14/19 16:21 97 24 103/60 (74) 100 12/14/19 16:15 97 30 79/42 (54) 100 12/14/19 16:00 99.1 96 28 99/64 (76) 100 12/14/19 16:00 123/62 12/14/19 15:45 93 32 110/73 (85) 100 12/14/19 15:30 90 37 106/51 (69) 100 12/14/19 15:23 98/46 12/14/19 15:00 117/52 12/14/19 15:00 86 32 117/52 (73) 100 12/14/19 14:45 84 34 99/44 (62) 99 12/14/19 14:30 82 31 85/39 (54) 100 12/14/19 14:15 86 27 88/50 (63) 100 12/14/19 14:10 88/50 12/14/19 14:00 86 29 91/65 (74) 100 12/14/19 14:00 91/65 Status: obtunded - on BiPAP Condition: critical HEENT: atraumatic, normocephalic Lungs: rales Heart: HR/BP unstable Abdomen: soft, non-tender, active bowel sounds Extremities: edema - LLE wound open Micro: Microbiology Date/Time Source Procedure Growth Status 12/13/19 19:59 Blood Blood Culture - Preliminary Resulted 12/13/19 10:50 Blood Blood Culture - Preliminary Streptococcus Pyogenes Grp A Resulted 12/13/19 19:59 Nasal Nares - Final Complete 12/13/19 19:59 Nasal Nares - Final Complete Accucheck: 239 Blood Sugars: BS not controlled Critical Care - Subjective ROS Limited/Unobtainable: Yes ICU Day: 2 Interval Events: On BiPAP Vascular debridebed LLE Condition: critical IV Access: central - R IJ CVC EKG Rhythm: Sinus Tachycardia FI02: 30 Vent Support Mode: BiLevel - 09/06 Sputum Amount: None Secretions: None Fluids: D5NS@100 Drips: IVUH, NIC 180, NE 30 I&O: Intake and Output 12/14/19 12/15/19 19:00 07:00 Intake Total 2976.799 ml 2681.774 ml Output Total 2000 ml 0 ml Balance 976.799 ml 2681.774 ml Intake Oral 120 ml IV Total 856.799 ml 2681.774 ml Hemodialysis 2000 ml Output Urine Total 0 ml 0 ml Hemodialysis UF 2000 ml Subjective: VÍCTOR CXR: PVC Labs: Laboratory Tests Test 12/14/19 16:50 12/15/19 04:30 12/15/19 12:30 Activated Partial Thromboplast Time 63 SEC (23-33) H 81 SEC (23-33) H White Blood Count 15.0 K/UL (4.8-10.8) #H Red Blood Count 3.74 M/UL (4.70-6.10) L Hemoglobin 12.1 G/DL (14.2-18.0) L Hematocrit 36.8 % (42.0-52.0) L Mean Corpuscular Volume 99 FL (80-99) Mean Corpuscular Hemoglobin 32.3 PG (27.0-31.0) H Mean Corpuscular Hemoglobin Concent 32.8 G/DL (32.0-36.0) Red Cell Distribution Width 17.1 % (11.6-14.8) H Platelet Count 110 K/UL (150-450) L Mean Platelet Volume 6.8 FL (6.5-10.1) Neutrophils (%) (Auto) % (45.0-75.0) Lymphocytes (%) (Auto) % (20.0-45.0) Monocytes (%) (Auto) % (1.0-10.0) Eosinophils (%) (Auto) % (0.0-3.0) Basophils (%) (Auto) % (0.0-2.0) Differential Total Cells Counted 100 Neutrophils % (Manual) 69 % (45-75) Lymphocytes % (Manual) 2 % (20-45) L Monocytes % (Manual) 2 % (1-10) Eosinophils % (Manual) 0 % (0-3) Basophils % (Manual) 0 % (0-2) Band Neutrophils 27 % (0-8) H Platelet Estimate Decreased L Platelet Morphology Normal Anisocytosis 1+ Sodium Level 131 MMOL/L (136-145) L Potassium Level 4.9 MMOL/L (3.5-5.1) Chloride Level 93 MMOL/L (98-107) L Carbon Dioxide Level 14 MMOL/L (21-32) L Anion Gap 24 mmol/L (5-15) H Blood Urea Nitrogen 60 mg/dL (7-18) H Creatinine 7.6 MG/DL (0.55-1.30) H Estimat Glomerular Filtration Rate 7.0 mL/min (>60) Glucose Level 302 MG/DL (74-106) #H Lactic Acid Level 5.50 mmol/L (0.4-2.0) H 8.00 mmol/L (0.4-2.0) H Calcium Level 8.0 MG/DL (8.5-10.1) L Troponin I 0.588 ng/mL (0.000-0.056) Random Vancomycin Level 13.9 ug/mL Ryan Finley MD Dec 15, 2019 14:01
--- NOTE | 2019-12-15 14:12 | Cardiac Electrophysiology PN ---
Assessment/Plan Assessment/Plan 1. Elevated troponin. Level is very low and nonspecific, especially in view of the patient being on dialysis. He obviously cannot get any beta- jorge a in view of being hypotensive and being in septic shock. His echocardiogram showed normal ejection fraction of 60% to 65%. EKG does not show any significant ST or T-wave abnormality . Frequent trigeminal PVCs 2. Septic shock. The patient is on Levophed that maxed-out and Hank at 180 mcg. He is on broad-spectrum IV antibiotic. Was on amlodipine 10 mg and metoprolol 100 mg b.i.d., but currently he is off both for shock 3. Hyperlipidemia, on Lipitor. 4. End-stage renal disease, on hemodialysis, per Dr. Tomas. 5. Diabetes. 6. Severe PVD, S/P removal ok skin and blisters by Dr Lopez today On heparin drip DW RN Now DNR and DNI Subjective Subjective Alert in NAD. On heparin drip for LLE severe PVD Objective Last 24 Hour Vital Signs Date Time Temp Pulse Resp B/P (MAP) Pulse Ox O2 Delivery O2 Flow Rate FiO2 12/15/19 13:32 104/41 12/15/19 13:28 97 26 100 Bi-Pap 30 95 25 100 30 12/15/19 13:00 96 96/45 (62) 100 12/15/19 12:30 91 104/41 (62) 100 12/15/19 12:00 98.0 93 106/47 (66) 100 12/15/19 12:00 90 12/15/19 11:30 92 93/50 (64) 100 12/15/19 11:26 85/45 12/15/19 11:00 91 89/41 (57) 100 12/15/19 10:45 85 35 100 30 12/15/19 10:30 94 81/43 (56) 100 12/15/19 10:00 99 85/45 (58) 100 12/15/19 09:30 101 109/41 (63) 100 12/15/19 09:09 103 35 114/57 (76) 89 12/15/19 09:00 100 28 86/43 (57) 100 12/15/19 08:30 101 26 90/42 (58) 100 12/15/19 08:00 92 12/15/19 08:00 97.7 100 26 96/44 (61) 100 12/15/19 07:33 Nasal Cannula 3.0 32 12/15/19 07:33 101 30 100 Nasal Cannula 3.0 32 101 26 100 12/15/19 07:30 102 30 96/42 (60) 100 12/15/19 07:00 103 26 106/45 (65) 100 12/15/19 06:30 105 28 85/66 (72) 100 12/15/19 06:08 93/46 12/15/19 06:00 104 23 93/46 (62) 100 12/15/19 06:00 93/46 12/15/19 05:30 105 27 93/50 (64) 100 12/15/19 05:00 105 29 83/45 (58) 100 12/15/19 05:00 72/25 12/15/19 04:48 108 24 88/55 (66) 100 12/15/19 04:45 105 20 43/22 (29) 100 12/15/19 04:41 106 25 83/47 (59) 100 12/15/19 04:40 106 24 63/33 (43) 100 12/15/19 04:30 103 24 73/40 (51) 100 12/15/19 04:15 102 21 99/77 (84) 100 12/15/19 04:00 99.5 105 23 93/53 (66) 100 12/15/19 04:00 99/77 12/15/19 04:00 103 12/15/19 03:51 92/37 12/15/19 03:45 103 23 95/39 (57) 100 12/15/19 03:30 103 22 101/45 (63) 100 12/15/19 03:01 104 26 100 30 12/15/19 03:00 103 24 92/37 (55) 100 12/15/19 03:00 91/45 12/15/19 02:45 103 22 89/41 (57) 100 12/15/19 02:30 104 24 93/41 (58) 100 12/15/19 02:15 102 23 83/54 (64) 100 12/15/19 02:00 103 24 85/45 (58) 100 12/15/19 02:00 83/54 12/15/19 01:45 104 23 103/46 (65) 100 12/15/19 01:30 104 24 101/47 (65) 100 12/15/19 01:15 103 25 110/45 (66) 100 12/15/19 01:00 102 25 94/51 (65) 100 12/15/19 01:00 110/45 12/15/19 00:48 96/48 12/15/19 00:45 110 25 89/48 (62) 100 12/15/19 00:30 103/49 12/15/19 00:30 105 24 94/45 (61) 100 12/15/19 00:18 105 28 100 30 12/15/19 00:00 100.5 106 28 96/48 (64) 100 12/15/19 00:00 105 12/15/19 00:00 110/45 12/14/19 23:45 106 30 102/41 (61) 100 12/14/19 23:30 107 30 110/47 (68) 100 12/14/19 23:15 110 32 128/52 (77) 100 12/14/19 23:00 128/52 12/14/19 23:00 105 33 111/49 (69) 100 12/14/19 22:45 105 30 102/45 (64) 100 12/14/19 22:30 105 32 98/44 (62) 100 12/14/19 22:15 108 35 105/45 (65) 100 12/14/19 22:13 109 26 97/44 (61) 100 12/14/19 22:11 92/43 12/14/19 22:00 97/44 12/14/19 22:00 104 38 96/45 (62) 100 12/14/19 21:45 105 37 97/41 (59) 100 12/14/19 21:30 105 37 95/43 (60) 100 12/14/19 21:15 106 37 92/43 (59) 100 12/14/19 21:00 92/43 12/14/19 21:00 105 39 90/42 (58) 100 12/14/19 20:53 100.6 12/14/19 20:45 104 35 88/41 (57) 100 12/14/19 20:30 103 40 87/39 (55) 100 12/14/19 20:15 103 30 97/39 (58) 100 12/14/19 20:00 101.9 104 39 100/41 (60) 100 12/14/19 20:00 102 12/14/19 20:00 97/39 12/14/19 19:49 99/44 12/14/19 19:45 102/39 12/14/19 19:15 100 39 99/44 (62) 100 12/14/19 19:04 Nasal Cannula 3.0 32 12/14/19 19:04 97 29 100 Nasal Cannula 3.0 32 99 32 99 12/14/19 19:00 99 33 103/45 (64) 100 12/14/19 18:45 100 36 109/42 (64) 100 12/14/19 18:30 100 39 116/42 (66) 100 12/14/19 18:00 99 24 115/43 (67) 100 12/14/19 18:00 122/84 12/14/19 17:46 104/54 12/14/19 17:30 98 38 104/54 (71) 100 12/14/19 17:00 125/56 12/14/19 17:00 98 24 91/59 (70) 100 12/14/19 16:32 97 12/14/19 16:30 97 26 94/75 (81) 100 12/14/19 16:21 97 24 103/60 (74) 100 12/14/19 16:15 97 30 79/42 (54) 100 12/14/19 16:00 99.1 96 28 99/64 (76) 100 12/14/19 16:00 123/62 12/14/19 15:45 93 32 110/73 (85) 100 12/14/19 15:30 90 37 106/51 (69) 100 12/14/19 15:23 98/46 12/14/19 15:00 117/52 12/14/19 15:00 86 32 117/52 (73) 100 12/14/19 14:45 84 34 99/44 (62) 99 12/14/19 14:30 82 31 85/39 (54) 100 12/14/19 14:15 86 27 88/50 (63) 100 12/14/19 14:10 88/50 Intake and Output 12/14/19 12/15/19 19:00 07:00 Intake Total 2976.799 ml 2681.774 ml Output Total 2000 ml 0 ml Balance 976.799 ml 2681.774 ml Intake Oral 120 ml IV Total 856.799 ml 2681.774 ml Hemodialysis 2000 ml Output Urine Total 0 ml 0 ml Hemodialysis UF 2000 ml Laboratory Tests Test 12/14/19 16:50 12/15/19 04:30 12/15/19 12:30 Activated Partial Thromboplast Time 63 SEC (23-33) H 81 SEC (23-33) H White Blood Count 15.0 K/UL (4.8-10.8) #H Red Blood Count 3.74 M/UL (4.70-6.10) L Hemoglobin 12.1 G/DL (14.2-18.0) L Hematocrit 36.8 % (42.0-52.0) L Mean Corpuscular Volume 99 FL (80-99) Mean Corpuscular Hemoglobin 32.3 PG (27.0-31.0) H Mean Corpuscular Hemoglobin Concent 32.8 G/DL (32.0-36.0) Red Cell Distribution Width 17.1 % (11.6-14.8) H Platelet Count 110 K/UL (150-450) L Mean Platelet Volume 6.8 FL (6.5-10.1) Neutrophils (%) (Auto) % (45.0-75.0) Lymphocytes (%) (Auto) % (20.0-45.0) Monocytes (%) (Auto) % (1.0-10.0) Eosinophils (%) (Auto) % (0.0-3.0) Basophils (%) (Auto) % (0.0-2.0) Differential Total Cells Counted 100 Neutrophils % (Manual) 69 % (45-75) Lymphocytes % (Manual) 2 % (20-45) L Monocytes % (Manual) 2 % (1-10) Eosinophils % (Manual) 0 % (0-3) Basophils % (Manual) 0 % (0-2) Band Neutrophils 27 % (0-8) H Platelet Estimate Decreased L Platelet Morphology Normal Anisocytosis 1+ Sodium Level 131 MMOL/L (136-145) L Potassium Level 4.9 MMOL/L (3.5-5.1) Chloride Level 93 MMOL/L (98-107) L Carbon Dioxide Level 14 MMOL/L (21-32) L Anion Gap 24 mmol/L (5-15) H Blood Urea Nitrogen 60 mg/dL (7-18) H Creatinine 7.6 MG/DL (0.55-1.30) H Estimat Glomerular Filtration Rate 7.0 mL/min (>60) Glucose Level 302 MG/DL (74-106) #H Lactic Acid Level 5.50 mmol/L (0.4-2.0) H 8.00 mmol/L (0.4-2.0) H Calcium Level 8.0 MG/DL (8.5-10.1) L Troponin I 0.588 ng/mL (0.000-0.056) Random Vancomycin Level 13.9 ug/mL Microbiology Date/Time Source Procedure Growth Status 12/13/19 19:59 Blood Blood Culture - Preliminary Resulted 12/13/19 10:50 Blood Blood Culture - Preliminary Streptococcus Pyogenes Grp A Resulted 12/13/19 19:59 Nasal Nares - Final Complete 12/13/19 19:59 Nasal Nares - Final Complete Objective HEAD AND NECK: Shows no JVD. LUNGS: Coarse rhonchi. CARDIOVASCULAR: Shows regular S1 and S2. Tachycardic. ABDOMEN: Obese. EXTREMITIES: He has 2+ pitting edema and Left leg sevre PVD. Jose Luis Michel MD Dec 15, 2019 14:12
--- NOTE | 2019-12-15 14:34 | Nephrology Progress Note ---
Assessment/Plan Problem List: (1) ESRD (end stage renal disease) (2) Cellulitis of left leg (3) CHF (congestive heart failure) (4) Sepsis (5) Lactic acid acidosis (6) PAD (peripheral artery disease) Plan Discussed with family THEY AGREED WITH [facility] Intubate Discussed with Dr Finley and RN Discussed with Dr Irvin wilhelm wound care Follow labs HD PRN / hopefully when BP is better pressors as needed Total time spent 40 Min Subjective Subjective On BIPAP Objective Objective Last 24 Hour Vital Signs Date Time Temp Pulse Resp B/P (MAP) Pulse Ox O2 Delivery O2 Flow Rate FiO2 12/15/19 13:32 104/41 12/15/19 13:28 97 26 100 Bi-Pap 30 95 25 100 30 12/15/19 13:00 96 96/45 (62) 100 12/15/19 12:30 91 104/41 (62) 100 12/15/19 12:00 98.0 93 106/47 (66) 100 12/15/19 12:00 90 12/15/19 11:30 92 93/50 (64) 100 12/15/19 11:26 85/45 12/15/19 11:00 91 89/41 (57) 100 12/15/19 10:45 85 35 100 30 12/15/19 10:30 94 81/43 (56) 100 12/15/19 10:00 99 85/45 (58) 100 12/15/19 09:30 101 109/41 (63) 100 12/15/19 09:09 103 35 114/57 (76) 89 12/15/19 09:00 100 28 86/43 (57) 100 12/15/19 08:30 101 26 90/42 (58) 100 12/15/19 08:00 92 12/15/19 08:00 97.7 100 26 96/44 (61) 100 12/15/19 07:33 Nasal Cannula 3.0 32 12/15/19 07:33 101 30 100 Nasal Cannula 3.0 32 101 26 100 12/15/19 07:30 102 30 96/42 (60) 100 12/15/19 07:00 103 26 106/45 (65) 100 12/15/19 06:30 105 28 85/66 (72) 100 12/15/19 06:08 93/46 12/15/19 06:00 104 23 93/46 (62) 100 12/15/19 06:00 93/46 12/15/19 05:30 105 27 93/50 (64) 100 12/15/19 05:00 105 29 83/45 (58) 100 12/15/19 05:00 72/25 12/15/19 04:48 108 24 88/55 (66) 100 12/15/19 04:45 105 20 43/22 (29) 100 12/15/19 04:41 106 25 83/47 (59) 100 12/15/19 04:40 106 24 63/33 (43) 100 12/15/19 04:30 103 24 73/40 (51) 100 12/15/19 04:15 102 21 99/77 (84) 100 12/15/19 04:00 99.5 105 23 93/53 (66) 100 12/15/19 04:00 99/77 12/15/19 04:00 103 12/15/19 03:51 92/37 12/15/19 03:45 103 23 95/39 (57) 100 12/15/19 03:30 103 22 101/45 (63) 100 12/15/19 03:01 104 26 100 30 12/15/19 03:00 103 24 92/37 (55) 100 12/15/19 03:00 91/45 12/15/19 02:45 103 22 89/41 (57) 100 12/15/19 02:30 104 24 93/41 (58) 100 12/15/19 02:15 102 23 83/54 (64) 100 12/15/19 02:00 103 24 85/45 (58) 100 12/15/19 02:00 83/54 12/15/19 01:45 104 23 103/46 (65) 100 12/15/19 01:30 104 24 101/47 (65) 100 12/15/19 01:15 103 25 110/45 (66) 100 12/15/19 01:00 102 25 94/51 (65) 100 12/15/19 01:00 110/45 12/15/19 00:48 96/48 12/15/19 00:45 110 25 89/48 (62) 100 12/15/19 00:30 103/49 12/15/19 00:30 105 24 94/45 (61) 100 12/15/19 00:18 105 28 100 30 12/15/19 00:00 100.5 106 28 96/48 (64) 100 12/15/19 00:00 105 12/15/19 00:00 110/45 12/14/19 23:45 106 30 102/41 (61) 100 12/14/19 23:30 107 30 110/47 (68) 100 12/14/19 23:15 110 32 128/52 (77) 100 12/14/19 23:00 128/52 12/14/19 23:00 105 33 111/49 (69) 100 12/14/19 22:45 105 30 102/45 (64) 100 12/14/19 22:30 105 32 98/44 (62) 100 12/14/19 22:15 108 35 105/45 (65) 100 12/14/19 22:13 109 26 97/44 (61) 100 12/14/19 22:11 92/43 12/14/19 22:00 97/44 12/14/19 22:00 104 38 96/45 (62) 100 12/14/19 21:45 105 37 97/41 (59) 100 12/14/19 21:30 105 37 95/43 (60) 100 12/14/19 21:15 106 37 92/43 (59) 100 12/14/19 21:00 92/43 12/14/19 21:00 105 39 90/42 (58) 100 12/14/19 20:53 100.6 12/14/19 20:45 104 35 88/41 (57) 100 12/14/19 20:30 103 40 87/39 (55) 100 12/14/19 20:15 103 30 97/39 (58) 100 12/14/19 20:00 101.9 104 39 100/41 (60) 100 12/14/19 20:00 102 12/14/19 20:00 97/39 12/14/19 19:49 99/44 12/14/19 19:45 102/39 12/14/19 19:15 100 39 99/44 (62) 100 12/14/19 19:04 Nasal Cannula 3.0 32 12/14/19 19:04 97 29 100 Nasal Cannula 3.0 32 99 32 99 12/14/19 19:00 99 33 103/45 (64) 100 12/14/19 18:45 100 36 109/42 (64) 100 12/14/19 18:30 100 39 116/42 (66) 100 12/14/19 18:00 99 24 115/43 (67) 100 12/14/19 18:00 122/84 12/14/19 17:46 104/54 12/14/19 17:30 98 38 104/54 (71) 100 12/14/19 17:00 125/56 12/14/19 17:00 98 24 91/59 (70) 100 12/14/19 16:32 97 12/14/19 16:30 97 26 94/75 (81) 100 12/14/19 16:21 97 24 103/60 (74) 100 12/14/19 16:15 97 30 79/42 (54) 100 12/14/19 16:00 99.1 96 28 99/64 (76) 100 12/14/19 16:00 123/62 12/14/19 15:45 93 32 110/73 (85) 100 12/14/19 15:30 90 37 106/51 (69) 100 12/14/19 15:23 98/46 12/14/19 15:00 117/52 12/14/19 15:00 86 32 117/52 (73) 100 12/14/19 14:45 84 34 99/44 (62) 99 Intake and Output 12/14/19 12/15/19 19:00 07:00 Intake Total 2976.799 ml 2681.774 ml Output Total 2000 ml 0 ml Balance 976.799 ml 2681.774 ml Intake Oral 120 ml IV Total 856.799 ml 2681.774 ml Hemodialysis 2000 ml Output Urine Total 0 ml 0 ml Hemodialysis UF 2000 ml Laboratory Tests 12/14/19 16:50: Activated Partial Thromboplast Time 63H 12/15/19 04:30: Activated Partial Thromboplast Time 81H, White Blood Count 15.0#H, Red Blood Count 3.74L, Hemoglobin 12.1L, Hematocrit 36.8L, Mean Corpuscular Volume 99, Mean Corpuscular Hemoglobin 32.3H, Mean Corpuscular Hemoglobin Concent 32.8, Red Cell Distribution Width 17.1H, Platelet Count 110L, Mean Platelet Volume 6.8 , Neutrophils (%) (Auto) , Lymphocytes (%) (Auto) , Monocytes (%) (Auto) , Eosinophils (%) (Auto) , Basophils (%) (Auto) , Differential Total Cells Counted 100, Neutrophils % (Manual) 69, Lymphocytes % (Manual) 2L, Monocytes % ( Manual) 2, Eosinophils % (Manual) 0, Basophils % (Manual) 0, Band Neutrophils 27H, Platelet Estimate DecreasedL, Platelet Morphology Normal, Anisocytosis 1+, Sodium Level 131L, Potassium Level 4.9, Chloride Level 93L, Carbon Dioxide Level 14L, Anion Gap 24H, Blood Urea Nitrogen 60H, Creatinine 7.6H, Estimat Glomerular Filtration Rate 7.0, Glucose Level 302#H, Lactic Acid Level 5.50H, Calcium Level 8.0L, Troponin I 0.588H, Random Vancomycin Level 13.9 12/15/19 12:30: Lactic Acid Level 8.00H Height (Feet): 5 Height (Inches): 9.00 Weight (Pounds): 228 Cardiovascular: other - distant Respiratory/Chest: rhonchi - bilaterally Extremities: moderate edema Giovanni Tomas MD Dec 15, 2019 14:34
[2019-12-15] MEDS ORDERED: Norepinephrine Bitartrate 8 MG in D5W 500ml 550 ML IV SCH (16:00)
--- NOTE | 2019-12-15 16:00 | NUR ---
NURSE NOTES: RT aware to draw ABGs 2 hours after Bipap settings are changed to 15/5. VS remain stable while pt remains at max dose Levo 30mcg, and Hank at 180mcg. Family is at bedside.
[2019-12-15] MEDS: Norepinephrine Bitartrate 8 MG in D5W 500ml 550 ML IV SCH ×2 (17:59→22:35)
--- NOTE | 2019-12-15 18:00 | NUR ---
NURSE NOTES: Pt had BM x1, was cleaned and repositioned. Family is now at bedside.
--- NOTE | 2019-12-15 19:30 | NUR ---
NURSE NOTES: Received Mr Rocío in no acute distress; drowsy, but arousable and responsive to family members in Thai. HOB elevated and pt on the Bipap @15/5 with .30 fiO2, sats 100%. at the bedside. Pt on multiple vasoactive drugs; Levophed gtt infuses at 30mcg/min and Neosynephrine at 180mcg/min. running on right IJ. BP still labile via right arm. Heparin gtt infuses at 10units/kg/h. Left arm with AVgraft with mod strong bruit and thrill. ST on the scope. Currently denies pain, denies SOB. Pt has generalized edema. Abdomen large, round but soft. No BM at this time. No duncan cath but pt not wet, bladder area soft. Left left covered with dressing, bilateral pedal pulses not felt, not audible with doppler.Toes cool to touch. Noted vascular surgeon's note and aware that pedal pulses absent. Called RT to do ABG's as ordered by Dr Finley. Will continue to monitor VS q 15mins and titrate pressors if able.
--- NOTE | 2019-12-15 19:30 | NUR ---
HAND-OFF: Report given to Leif BREWER. Endorsed plan of care.
[2019-12-15] MEDS: Atorvastatin 20mg tab ORAL SCH (21:09)
--- NOTE | 2019-12-15 21:30 | NUR ---
NURSE NOTES: Texted results of ABG's to Dr Finley. Acknowledged message, no new orders.
--- NOTE | 2019-12-15 23:00 | General Progress Note ---
Assessment/Plan Assessment/Plan: sepsis lactic acidosis left leg ischemia necrosis renal failure increased trop respiratory failure abx per ID check cultures sp debridement will need angio when stable currently on bipap on heparin ggt family has decided to change to full code dw Dr Tomas and Dr Finley Subjective Allergies: Coded Allergies: No Known Allergies (Verified Allergy, Unknown, 03/09/11) Subjective above note more alert today currentl on bipap sp debridement left leg by dr sousa Objective Last 24 Hour Vital Signs Date Time Temp Pulse Resp B/P (MAP) Pulse Ox O2 Delivery O2 Flow Rate FiO2 12/15/19 22:35 122/81 12/15/19 22:00 135/60 12/15/19 21:45 125 30 136/69 (91) 100 12/15/19 21:30 120 29 119/95 (103) 100 12/15/19 21:15 123 28 119/70 (86) 100 12/15/19 21:00 122 28 114/58 (76) 100 12/15/19 21:00 114/58 12/15/19 20:45 122 28 75/62 (66) 100 12/15/19 20:37 112 126/48 12/15/19 20:30 118 28 119/44 (69) 100 12/15/19 20:15 101 29 120/51 (74) 100 12/15/19 20:00 101 12/15/19 20:00 98.4 100 27 126/48 (74) 100 12/15/19 20:00 Bi-pap 12/15/19 20:00 126/48 12/15/19 19:45 100 29 110/48 (68) 100 12/15/19 19:30 Bi-pap 30 12/15/19 19:30 98 26 102/46 (64) 100 12/15/19 19:00 102/46 12/15/19 19:00 100 26 104/46 (65) 100 12/15/19 18:30 99 26 102/48 (66) 100 12/15/19 18:00 96 26 102/41 (61) 100 12/15/19 17:59 102/38 12/15/19 17:30 96 27 108/48 (68) 100 12/15/19 17:00 96 27 110/43 (65) 100 12/15/19 16:54 100 31 100 30 12/15/19 16:30 99 21 105/51 (69) 100 12/15/19 16:00 98.2 97 26 93/53 (66) 100 12/15/19 16:00 Bi-pap 12/15/19 16:00 101 102/46 12/15/19 16:00 99 12/15/19 15:49 102/38 12/15/19 15:30 98 21 110/47 (68) 100 12/15/19 15:00 96 34 100 30 12/15/19 15:00 99 27 104/49 (67) 100 12/15/19 14:30 95 102/38 (59) 100 12/15/19 14:00 96 96/52 (67) 100 12/15/19 13:32 104/41 12/15/19 13:30 96 94/42 (59) 100 12/15/19 13:28 97 26 100 Bi-Pap 30 95 25 100 30 12/15/19 13:00 96 96/45 (62) 100 12/15/19 12:30 91 104/41 (62) 100 12/15/19 12:00 Bi-pap 12/15/19 12:00 98.0 93 106/47 (66) 100 12/15/19 12:00 90 12/15/19 11:30 92 93/50 (64) 100 12/15/19 11:26 85/45 12/15/19 11:00 101 102/46 12/15/19 11:00 91 89/41 (57) 100 12/15/19 10:45 85 35 100 30 12/15/19 10:30 94 81/43 (56) 100 12/15/19 10:00 99 85/45 (58) 100 12/15/19 09:30 101 109/41 (63) 100 12/15/19 09:09 103 35 114/57 (76) 89 12/15/19 09:00 100 28 86/43 (57) 100 12/15/19 08:30 101 26 90/42 (58) 100 12/15/19 08:00 92 12/15/19 08:00 Bi-pap 12/15/19 08:00 97.7 100 26 96/44 (61) 100 12/15/19 07:33 Nasal Cannula 3.0 32 12/15/19 07:33 101 30 100 Nasal Cannula 3.0 32 101 26 100 12/15/19 07:30 102 30 96/42 (60) 100 12/15/19 07:00 103 26 106/45 (65) 100 12/15/19 06:30 105 28 85/66 (72) 100 12/15/19 06:08 93/46 12/15/19 06:00 104 23 93/46 (62) 100 12/15/19 06:00 93/46 12/15/19 05:30 105 27 93/50 (64) 100 12/15/19 05:00 105 29 83/45 (58) 100 12/15/19 05:00 72/25 12/15/19 04:48 108 24 88/55 (66) 100 12/15/19 04:45 105 20 43/22 (29) 100 12/15/19 04:41 106 25 83/47 (59) 100 12/15/19 04:40 106 24 63/33 (43) 100 12/15/19 04:30 103 24 73/40 (51) 100 12/15/19 04:15 102 21 99/77 (84) 100 12/15/19 04:00 99.5 105 23 93/53 (66) 100 12/15/19 04:00 99/77 12/15/19 04:00 103 12/15/19 03:51 92/37 12/15/19 03:45 103 23 95/39 (57) 100 12/15/19 03:30 103 22 101/45 (63) 100 12/15/19 03:01 104 26 100 30 12/15/19 03:00 103 24 92/37 (55) 100 12/15/19 03:00 91/45 12/15/19 02:45 103 22 89/41 (57) 100 12/15/19 02:30 104 24 93/41 (58) 100 12/15/19 02:15 102 23 83/54 (64) 100 12/15/19 02:00 103 24 85/45 (58) 100 12/15/19 02:00 83/54 12/15/19 01:45 104 23 103/46 (65) 100 12/15/19 01:30 104 24 101/47 (65) 100 12/15/19 01:15 103 25 110/45 (66) 100 12/15/19 01:00 102 25 94/51 (65) 100 12/15/19 01:00 110/45 12/15/19 00:48 96/48 12/15/19 00:45 110 25 89/48 (62) 100 12/15/19 00:30 103/49 12/15/19 00:30 105 24 94/45 (61) 100 12/15/19 00:18 105 28 100 30 12/15/19 00:00 100.5 106 28 96/48 (64) 100 12/15/19 00:00 105 12/15/19 00:00 110/45 12/14/19 23:45 106 30 102/41 (61) 100 12/14/19 23:30 107 30 110/47 (68) 100 12/14/19 23:15 110 32 128/52 (77) 100 12/14/19 23:00 128/52 12/14/19 23:00 105 33 111/49 (69) 100 Intake and Output 12/14/19 12/15/19 19:00 07:00 Intake Total 2976.799 ml 2912.458 ml Output Total 2000 ml 0 ml Balance 976.799 ml 2912.458 ml Intake Oral 120 ml IV Total 856.799 ml 2912.458 ml Hemodialysis 2000 ml Output Urine Total 0 ml 0 ml Hemodialysis UF 2000 ml Laboratory Tests 12/15/19 04:30: White Blood Count 15.0#H, Red Blood Count 3.74L, Hemoglobin 12.1L, Hematocrit 36.8L, Mean Corpuscular Volume 99, Mean Corpuscular Hemoglobin 32.3H, Mean Corpuscular Hemoglobin Concent 32.8, Red Cell Distribution Width 17.1H, Platelet Count 110L, Mean Platelet Volume 6.8, Neutrophils (%) (Auto) , Lymphocytes (%) (Auto) , Monocytes (%) (Auto) , Eosinophils (%) (Auto) , Basophils (%) (Auto) , Differential Total Cells Counted 100, Neutrophils % ( Manual) 69, Lymphocytes % (Manual) 2L, Monocytes % (Manual) 2, Eosinophils % ( Manual) 0, Basophils % (Manual) 0, Band Neutrophils 27H, Platelet Estimate DecreasedL, Platelet Morphology Normal, Anisocytosis 1+, Activated Partial Thromboplast Time 81H, Sodium Level 131L, Potassium Level 4.9, Chloride Level 93L, Carbon Dioxide Level 14L, Anion Gap 24H, Blood Urea Nitrogen 60H, Creatinine 7.6H, Estimat Glomerular Filtration Rate 7.0, Glucose Level 302#H, Lactic Acid Level 5.50H, Calcium Level 8.0L, Troponin I 0.588H, Random Vancomycin Level 13.9 12/15/19 12:30: Lactic Acid Level 8.00H 12/15/19 14:50: Arterial Blood pH 7.311L, Arterial Blood Partial Pressure CO2 24.7*L, Arterial Blood Partial Pressure O2 117.4H, Arterial Blood HCO3 12.2*L, Arterial Blood Oxygen Saturation 97.8, Arterial Blood Base Excess -12.2*L, Wilson Test Positive 12/15/19 17:30: Lactic Acid Level 8.30H 12/15/19 21:45: Lactic Acid Level 9.00H Height (Feet): 5 Height (Inches): 9.00 Weight (Pounds): 228 General Appearance: WD/WN Neck: supple Cardiovascular: normal rate Respiratory/Chest: rhonchi - bilaterally Abdomen: soft Objective left leg dressing intact sp debridement of necrosis Casey Bryan MD Dec 15, 2019 22:59
[2019-12-16] VITALS (21 sets, daily range): BP systolic 58–133; BP diastolic 28–101
[2019-12-16] MEDS ORDERED: Clindamycin 900mg 50 ML IV SCH
--- NOTE | 2019-12-16 | NUR ---
NURSE NOTES: No distress, continues on the Bipap, maintains O2 sats of 100%. Denies pains, BP still labile. Levophed gtt continues at 30mcg/min. Neosynephrine at 200mcg/min. Heparin gtt still at 10units/kg/h. No bleeding noted. Temp 99.2 axillary. Will continue to monitor
[2019-12-16] MEDS: Phenylephrine 50 MG in D5W 245 ML IV PRN ×2 (00:56→04:39)
[2019-12-16] MEDS: Albuterol/Ipratropium 3ml neb HHN SCH (01:00)
--- NOTE | 2019-12-16 01:00 | NUR ---
NURSE NOTES: BP 72/43. Increased Neosynephrine gtt to 240mcg/min. Continue to monitor VS q 15mins.
--- NOTE | 2019-12-16 02:45 | NUR ---
NURSE NOTES: Remains hypotensive, BP 67/37, HR 113 on Afib. Hank at 240mcg/min and Levophed at 30mcg/min. Called Dr Michel, awaiting call back
--- NOTE | 2019-12-16 03:00 | NUR ---
NURSE NOTES: BP up to 98/71, MAP 77. Continues on max doses of carlitos and Levo. Dr Michel not called back yet. HR 114, afib.
[2019-12-16] MEDS: D5NS 1,000 ML IV SCH (03:17)
[2019-12-16] MEDS: Norepinephrine Bitartrate 8 MG in D5W 500ml 550 ML IV SCH (03:18)
--- NOTE | 2019-12-16 04:00 | NUR ---
NURSE NOTES: Asleep but grimaces on sternal rub. Continues with the Bipap. BP MAP 57. Complete bed bath done. No BM, no urine output. Dressed wounds on left elbow and right lower leg. Skin tears on RFA applied with adaptic and wrapped with Kerlix. Pt moans and grimaces on turning. Continue to monitor. Temp 99.5 axillary
[2019-12-16] MEDS: Azithromycin 500 MG in D5W 275 ML IV SCH (04:37)
--- NOTE | 2019-12-16 04:57 | NUR ---
NURSE NOTES: HR dropped down to 0, asystole on all leads. Code blue called. Charge nurse called the son, iFdel during the code process. Wants everything done. Pls see code blue sheet
--- NOTE | 2019-12-16 05:20 | NUR ---
NURSE NOTES: Code blue outcome unsuccessful. Pt and pronounced by CHARLA, Dr Ambrose. Informed son, Fidel. He will call the rest of the family and they will come.
--- NOTE | 2019-12-16 05:30 | NUR ---
NURSE NOTES: Post mortem care done. No belongings, no dentures, no valuables. Body remains in the room. Family to come in soon. Informed PMD, Dr Bryan, texted Dr Finley. Left message to Dr Michel
--- NOTE | 2019-12-16 06:51 | Emergency Room Report ---
History of Present Illness General Chief Complaint: Chest Pain Source: Patient, Medical Record, PMD Present Illness COVID-19 risk:Travel to affect: No Has patient experienced jade: No Allergies: Coded Allergies: No Known Allergies (Verified Allergy, Unknown, 03/09/11) Nursing Documentation-[facility] Past Medical History: No History, Except For Hx Hypertension: Yes Hx Diabetes: Yes Hx Cancer: No Hx Gastrointestinal Problems: Yes Hx Dialysis: Yes - T, TH, SAT Hx Neurological Problems: No Physical Exam Vital Signs Date Time Temp Pulse Resp B/P (MAP) Pulse Ox O2 Delivery O2 Flow Rate FiO2 12/13/19 19:22 98.1 84 20 118/37 (64) 84 Room Air 12/13/19 22:53 3.0 32 Procedures Critical Care Time Critical Care Time i. I feel this is a highly complex case requiring extensive working including EKG/Rhythm strip, Xray/CT/US, Blood/urine lab work, repeat exams while in ED, and administration of strong opiates/narcotics for pain control, admission to hospital or close patient follow up. Total time: 30 min bedside evaluation and treatment excludes procedures (EKG). Reason for critical care: cardiac arrest Possible complications: hypotension, hypertension, [place], shock, arrhythmias, metabolic acidosis, end organ damage, respiratory failure. Interventions: intuatbion, ACLS, chest compressions Course: patient lost pulses. asystole. on max pressors. Chest compressions started prior to my arrival. Patient intubated. Breath sounds noted. Given multiple rounds of epinephrine. Given calcium and bicarbonate. After multiple rounds of compressions and rhythm checks patient remains in asystole. Prognosis is poor. Resuscitative efforts terminated. Patient expires Consultations: nursing staff, EMS, family Performed by: Dr Valiente Tolerated well condition = j. because of unstable vital signs this patient had a condition that could potentially threaten life or limb. I feel this is a critical patient who required my full attention while patient was considered critical. Total Critical Care Time excluding procedures was greater than 35 minutes CPR/Code Blue CPR/Code Blue Narrative see code blue sheet for full narrative Intubation Intubation : Consent: Emergent Intubation Method: orotracheal Tube Size (cm): 7.5 Breath Sounds after Intubation: equal Intubation Complications: no complications Post Intubation Xray: No - patient Attempts: One Patient Tolerated: Well Complications: None Medical Decision Making Diagnostic Impression: Primary Impression: Chest pain Additional Impression: ESRD (end stage renal disease) ER Course I was called to the ICU for this CODE BLUE. Lost pulses. Asystole. Chest compressions started upon my arrival. I intubated patient. Breath sounds noted. Patient given multiple rounds of epinephrine U. Given calcium and bicarbonate. Accu-Chek within normal limits. After multiple rounds of chest compressions patient remains in asystole. Patient on max pressors. Prognosis is poor. Resuscitative efforts terminated. Patient expires Last Vital Signs Date Time Temp Pulse Resp B/P (MAP) Pulse Ox O2 Delivery O2 Flow Rate FiO2 12/16/19 05:45 0 0 12/16/19 05:00 73 12/16/19 05:00 74/28 12/16/19 04:00 Bi-pap 12/16/19 04:00 99.5 12/16/19 03:20 30 12/15/19 07:33 3.0 Status: worsened Disposition: Condition: Referrals: Casey Bryan MD (PCP) Cresencio Valiente MD Dec 16, 2019 06:51
[2019-12-16] MEDS ORDERED: D5W 550ml IV ONE (14:03)
[2019-12-16] MEDS ORDERED: D5NS 1000ml IV ONE (14:03)
[2019-12-16] MEDS ORDERED: Tubing IV Secondary IV ONE (14:03)
[2019-12-16] MEDS ORDERED: D5 1/2NS 1000ml IV ONE (14:03)
[2019-12-16] MEDS ORDERED: 1/2 NS 1000ml IV ONE (14:03)
[2019-12-16] MEDS ORDERED: NS 275ml ONE (14:03)
[2019-12-16] MEDS ORDERED: Dyna-Hex 2% Top Sol 2oz TOPIC SCH (20:00)
--- NOTE | 2019-12-17 10:44 | Diagnostic Imaging Report ---
. Indication: Leg pain Technique: Grayscale and duplex images of the left lower extremity arteries. Ankle-brachial indices could not be obtained, due to extreme patient pain Comparison: none Findings: Left common femoral and proximal superficial femoral artery waveforms are triphasic, with sharp systolic peaks. At the level of the distal superficial femoral artery, waveforms are dampened, monophasic, and demonstrate increased diastolic flow. Similar finding is seen at the popliteal artery level. At the levels of the distal posterior tibial artery, waveforms are further dampened and monophasic. The dorsalis pedis artery and anterior tibial artery could not be visualized. Impression: Diminishing distal waveforms, likely indicating significant stenosis at the level of the distal superficial femoral artery. Evidence of significant tibial vessel disease, with flattened waveforms in the posterior tibial artery and nonvisualization of the anterior tibial artery. Somewhat limited exam, due to lack of ankle brachial indices
--- NOTE | 2019-12-17 14:04 | Discharge Summary ---
Discharge Summary Discharge Summary _ SUMMARY DATE OF ADMISSION: 12/13/2019 DATE OF EXPIRATION: 12/16/2019 REASON FOR ADMISSION: 74 years old male with past medical history of hypertension, diabetes mellitus, end-stage renal disease, on hemodialysis, presented with chest discomfort associated with shortness of breath. Onset of symptoms about 2 days ago. Patient reported recent nonproductive cough. No recent traveling. No known sick contacts. He denied any fevers or chills. No nausea , vomiting or diarrhea. Upon evaluation vital signs were stable. Laboratory work-up revealed leukopenia with WBC 2.7 , hemoglobin 11.5, hematocrit 36.8 ,platelet count 178. Stable electrolytes. BUN 78, creatinine 8.9, consistent with known history of end-stage renal disease. Glucose 95. Lactic acid 2.7. AST 58 , ALT 38. Troponin negative. pro BNP above 35,000. EKG revealed sinus rhythm , no acute ischemic changes. Chest x-ray demonstrated no acute cardiopulmonary pathology. In the in emergency department patient received aspirin , nitroglycerin , 1 L of fluids, nebulizing treatment with bronchodilator, Tylenol and admitted for further management. CONSULTANTS: button sawyer Dr. Gaxiola pulmonary Dr. Finley ID specialist Dr. Monson vascular surgeon Dr Lopez piece dyeing machine tender Dr. Tomas surgery Dr. Wolf [facility] COURSE: Patient admitted to telemetry floor. Echocardiogram demonstrated preserved ejection fraction of 60 to 65% with no evidence of wall motion abnormality. Mild left ventricular hypertrophy noted. No evidence of pericardial effusion. Mild aortic regurgitation and severe aortic stenosis noted. Second troponin was minimally elevated - 0.057 , and the last troponin 0.588. Per button sawyer level of elevated troponin were low and nonspecific , especially in patients with chronic renal failure being on hemodialysis. No beta-jorge a due to hypotension and being in septic shock was initiated. EKG revealed no significant ST or T wave abnormality, but showed frequent trigeminal PVC. Venous Doppler bilateral lower extremity revealed no evidence of acute DVT . Arterial Doppler of left lower extremity revealed diminished distal waveforms , likely indicating significant stenosis at the level of the distal superficial femoral artery. Evidence of significant tibial vessel disease with flattened waveform in the posterior tibial artery and nonvisualization of the anterior tibial artery. Arterial Doppler of the right leg revealed no evidence of right lower extremity vascular insufficiency. Findings to suggest significant disease of the anterior tibial artery, but there appeared to be good inline flow to the foot via patent posterior tibial artery. On 12/13 patient was noted to be severely hypotensive. Emergency room physician inserted central line , placement was confirmed by chest x-ray. Patient started on pressors / Levophed and transferred to ICU. . Patient was persistently tachycardic and started on heparin drip. Hemodynamic status was closely monitored to keep mean arterial blood pressure above 65. At the same time respiratory status worsened and he required initiation of BiPAP 09/06. Patient was followed-up with ABG. Patient remained tachycardic and tachypneic in ICU on heparin drip and pressor. Per vascular surgeon patient had severe calcific multilevel arterial occlusive PAD. Intact bilateral foot Doppler. Vascular surgeon performed blisterectomy ( patient had evidence of left leg cellulitis with blisters) . Surgeon recommended angiogram when patient stabilized stable and continue with broad-spectrum antibiotic. Patient started on empiric antibiotic as per ID specialist recommendation. Blood culture revealed Strep pyogenes group A . Wound culture also revealed Strep group A. Bacteremia was likely due to wound infection. Hemodialysis provided as per piece dyeing machine tender with close monitoring of volumes, renal parameters and electrolytes . Wound care for left leg cellulitis , s/p blisterectomy provided as per general surgeon recommendation. Family decided to change CODE STATUS to full code on 12/14. CODE BLUE later was called on 12/14. Patient lost pulses due to asystole . ACLS protocol initiated . Patient was orally intubated . Despite multiply rounds of medication and chest compression , patient remained in asystole. Resuscitative efforts terminated . Patient was pronounced on 5/20 am on 12/16/2019. cause of : asystolic cardiopulmonary arrest FINAL DIAGNOSES: Asystolic cardiopulmonary arrest Acute respiratory failure requiring intubation Sepsis Septic shock Left leg cellulitis and blisters, status post blisterectomy Left toe ulcer Left leg ischemia Right calf wound ulcer Congestive heart failure Lactic acidosis Severe multilevel arterial occlusive PAD Diabetes mellitus Obesity Elevated troponin Possible NSTEMI ESRD, on HD I have been assigned to dictate discharge summary for this account. I was not involved in the patient's management. Darline Saldaña NP Dec 17, 2019 14:04
--- NOTE | 2019-12-25 16:00 | Consultation ---
DATE OF CONSULTATION: 12/16/2019 "NOTE: POOR AUDIO" CONSULTING PHYSICIAN: Tejas Lopez M.D. REASON FOR CONSULTATION: necrosis. HISTORY OF PRESENT ILLNESS: The patient is a pleasant 74-year-old morbidly obese male, who in the ICU with shock and large amount of . The patient reported recently travel to [place] and now has extensive left calf necrosis and also medical records. PAST MEDICAL HISTORY: As above. hypertension, diabetes recent travel to [place]. MEDICATIONS: See attached MAR. ALLERGIES: No known drug allergies. SOCIAL HISTORY: No history of smoking, drugs, or alcohol use. FAMILY HISTORY: Unremarkable. REVIEW OF SYSTEMS: CARDIOVASCULAR: No history of chest pain or palpitation. PULMONARY: No cough or hemoptysis. GASTROINTESTINAL: No history of abdominal pain, constipation, or diarrhea. GENITOURINARY: No urinary symptoms, frequency, or hematuria. NEUROLOGIC: No history of stroke or seizures. PHYSICAL EXAMINATION: GENERAL: The patient is afebrile at 97, heart rate 80, blood pressure 150/76, and respirations 16. NECK: The patient has palpable radial pulses. No carotid bruits. LUNGS: Clear to auscultation. HEART: Regular rate and rhythm. ABDOMEN: Soft and nontender. EXTREMITIES: Palpable left . Intact peripheral pulses. Intact popliteal and dorsal pedal on Dopplers. strongly palpable in the lower extremity with extensive left calf cellulitis and necrosis. IMPRESSION: 1. Sepsis. 2. Left leg calf necrosis and fasciitis with cellulitis. 3. Intact lower extremity with significant arterial insufficiency. No evidence of DVT on Duplex. 4. Recent travel to [place]. PLAN: 1. Broad-spectrum intravenous antibiotics were . 2. Left calf debridement I and D by General Surgery. . 3. Shock . 4. Continue DVT and decubitus precaution. Tejas Lopez M.D. DR: NICOLETTE :33 JOB#: [id number] CC:
== END 2019-12-16 05:20 | disposition expired | DRG 871 ==
LOC: EMR 20:13 → 2W 20:18 → UNDOADMIN 20:18 → EDBEDREQ 20:59 → EDBEDREQSVC 20:59 → EDBEDREQ 21:06 → ICU 12-14 03:47
PROC: 0BH17EZ Insertion of Endotracheal Airway into Trachea, Via Natural or Artificial Opening (ICD-10-PCS; principal; 2019-12-13)
PROC: 05HM33Z Insertion of Infusion Device into Right Internal Jugular Vein, Percutaneous Approach (ICD-10-PCS; principal; 2019-12-13)
DX: A41.9 Sepsis, unspecified organism (principal); N18.6 End stage renal disease; J96.00 Acute respiratory failure, unspecified whether with hypoxia or hypercapnia; R65.21 Severe sepsis with septic shock; I21.4 Non-ST elevation (NSTEMI) myocardial infarction; I13.2 Hypertensive heart and chronic kidney disease with heart failure and with stage 5 chronic kidney disease, or end stage renal disease; L03.116 Cellulitis of left lower limb; E11.22 Type 2 diabetes mellitus with diabetic chronic kidney disease; I50.9 Heart failure, unspecified; Z99.2 Dependence on renal dialysis; E78.5 Hyperlipidemia, unspecified; I35.1 Nonrheumatic aortic (valve) insufficiency; I35.0 Nonrheumatic aortic (valve) stenosis; I49.3 Ventricular premature depolarization; E66.9 Obesity, unspecified; M72.9 Fibroblastic disorder, unspecified
CPT/HCPCS: 36415; 36600; 71045; 80048; 80053; 80061; 80202; 82550; 82553; 82607; 82728; 82746; 82803; 82962; 82977; 83036; 83540; 83550; 83605; 83735; 83880; 84100; 84443; 84484; 84550; 85007; 85025; 85730; 86140; 86706; 86710; 86713; 86738; 87040; 87070; 87081; 87181; 87205; 93005; 93306; 93922; 93971; 94640; 96361; 99285; J1815; J2370; J7030; J7620; S0077